=== PATIENT | female | born 1960 | race Caucasian/White ===

== ENCOUNTER 2020-02-02 12:04 | Outpatient (CLI) | payer OTHER, SELFPAY ==
--- NOTE | ~2020-02-02 | XR_ITS ---
EXAMINATION: XR finger 5th LT min 2V INDICATION: Displaced fracture of the middle phalanx, initial encounter TECHNIQUE: Three views of the fifth finger are obtained. COMPARISON: None available FINDINGS: There is an oblique intra-articular fracture at the volar base of the fifth toe phalanx whi ch involves less than 50% of the articular surface. The fracture fragment is proximally retracted drew roximately 1.5 mm. Soft tissue swelling surrounds the fracture. No additional acute osseous abnormali ty is identified. IMPRESSION: 1. Volar plate avulsion of the fifth middle phalanx involving less than 50% of the articular surface. Reviewed, dictated and finalized at location A.
== END 2020-02-02 12:05 | disposition home or self-care (01) ==
LOC: ANHIMG 12:08
PROVIDERS: PCP Internal Medicine; Visit Provider Internal Medicine
DX: S62.603A Fracture of unspecified phalanx of left middle finger, initial encounter for closed fracture (principal)
CPT/HCPCS: 73140

== ENCOUNTER 2020-03-14 10:52 | Outpatient (CLI) | payer OTHER, SELFPAY ==
--- NOTE | ~2020-03-14 | XR_ITS ---
XR finger 5th LT min 2V DATE: 03/14/2020 11:15 INDICATION: Middle phalanx fracture TECHNIQUE: 3 views COMPARISON: 02/02/2020 left fifth finger FINDINGS: There is an anteriorly displaced small cortical avulsion fracture of the anterior base of t he middle phalanx, without significant change since 02/02/2020. No other fracture or dislocation. IMPRESSION: Anteriorly avulsed small cortical fracture of the anterior base of the middle phalanx Reviewed, dictated and finalized at location A.
== END 2020-03-14 10:53 | disposition home or self-care (01) ==
LOC: ANHIMG 11:00
PROVIDERS: PCP Internal Medicine; Visit Provider Internal Medicine
DX: S62.629A Displaced fracture of middle phalanx of unspecified finger, initial encounter for closed fracture (principal)
CPT/HCPCS: 73140

== ENCOUNTER 2021-08-01 09:17 | Outpatient (CLI) | payer OTHER, SELFPAY ==
[2021-08-01 11:12] LABS: SARS-CoV-2 RNA PCR Negative (Negative)
== END 2021-08-01 09:18 | disposition home or self-care (01) ==
LOC: CHSLAB 09:19
PROVIDERS: PCP Internal Medicine; Visit Provider Internal Medicine
DX: R68.89 Other general symptoms and signs (principal); Z20.822 Contact with and (suspected) exposure to COVID-19
CPT/HCPCS: C9803; U0003; U0005

== ENCOUNTER 2021-12-03 15:21 | Emergency (ER) | payer OTHER, SELFPAY ==
--- NOTE | ~2021-12-03 | CT_ITS ---
EXAMINATION: CT brain wo con INDICATION: Hypertension, headache COMPARISON: None TECHNIQUE: Standard unenhanced head CT. The dose-length product (DLP) was 605.33 mGy-cm. The mA was a djusted according to patient size. Iterative reconstruction technique was employed. FINDINGS: There is no intracranial hemorrhage, acute infarction, or abnormal mass lesion. The ventric les are normal. There is no abnormal mass effect or midline shift. The garrison-white matter differentiat ion is normal. The basal cisterns are patent. The orbits are normal. The paranasal sinuses, mastoids and calvarium are normal. IMPRESSION: 1. No acute intracranial abnormality. Reviewed, dictated and finalized at location A.
[2021-12-03 15:32] VITALS: BP 178/95; PULSE 84; RESP 18; TEMP 36.3; O2SAT 98
--- NOTE | 2021-12-03 16:03 | ECG_ITS ---
Measurements Intervals [place] Rate: 75 P: 1 RI: 171 QRS: 7 QRSD: 98 T: 18 QT: 367 QTc: 412 Interpretive Statements SINUS RHYTHM BASELINE WANDER- V5 NORMAL ECG Electronically Signed On 12-04-2021 6:58:28 CDT by Wojciech Cristobal D.O.
--- NOTE | 2021-12-03 16:06 | ED.HA ---
HPI - Headache General Chief Complaint: Headache Stated Complaint: headache Time Seen by Provider: 12/03/21 15:54 Source: patient History of Present Illness HPI Narrative: Patient presents with a headache and not feeling well. Patient lauren has had symptoms for approximately 1 month that do not appear to be improving. She went to an aid station at work they checked her blood pressure it was elevated she called her primary care doctor and she was referred to the ER for evaluation. Patient also reports intermittent paresthesias to her left hand reports they increased her carbidopa levodopa couple months ago but has been tolerating the increased dose there have been no additional changes to her medications recently. she reports sinus congestion as well as not feeling like herself. Denies any nausea vomiting denies any chest pain or shortness of breath denies any fevers cough. Related Data Home Medications Medication Instructions Recorded Confirmed aspirin 81 mg tablet,delayed 81 mg PO DAILY 08/23/19 07/17/21 release cholecalciferol (vitamin D3) 50 1,000 unit PO DAILY tablet 08/23/19 07/17/21 mcg (2,000 unit) tablet trazodone 100 mg tablet 100 mg PO BID 08/23/19 07/17/21 carbidopa ER 50 mg-levodopa 200 mg 1 tablet PO ONCE tablet 09/23/19 07/17/21 tablet,extended release carbidopa 25 mg-levodopa 100 mg 2.5 tablet PO .Every 3 Hours 09/02/21 tablet tablet Allergies Allergy/AdvReac Type Severity Reaction Status Date / Time adhesive Allergy Mild RASH Verified 09/02/21 09:25 Review of Systems Review of Systems: CONSTITUTIONAL: Denies fever, chills, or sweats. EYES: Denies visual changes, redness, or discharge. ENT: Denies rhinorrhea, sore throat, or otalgia. CARDIOVASCULAR: Denies chest pain, palpitations, or edema. RESPIRATORY: Denies cough or dyspnea. GASTROINTESTINAL: Denies abdominal pain, nausea, vomiting, or diarrhea. GENITOURINARY: Denies dysuria or hematuria. SKIN: Denies rash or itching. MUSCULOSKELETAL: Denies back pain, joint pain, or myalgia. NEUROLOGIC: Denies dizziness, or focal weakness. PSYCHIATRIC: Denies anxiety or depression. All systems reviewed & are unremarkable except as noted in HPI and below PMFSH Family History Family History Mother Patient's mother is in good health Father Family history of congestive heart failure Other Family history of heart disease in male family member before age 55 Hypertension Social History Social History Smoking status: Never smoker Second hand tobacco smoke exposure: No Alcohol intake: never Exam Narrative: GENERAL: Well-appearing, well-nourished, and in no acute distress. HEAD: Normocephalic, atraumatic. EYES: PERRLA and EOMI. ENT: Nares clear, no rhinorrhea or epistaxis. Mucous membranes moist. NECK: Supple. No masses. No JVD CHEST: Clear to auscultation. No respiratory distress. No wheezes rales or rhonchi HEART: Regular rate and rhythm. No murmur heard. Normal peripheral pulses. ABDOMEN: Soft, nontender, nondistended, normal active bowel sounds. EXTREMITIES: Normal range of motion. No edema. SKIN: Warm, dry, no rash. NEURO: Cranial nerves II through XII are intact patient has 5 of 5 strength in all extremities sensation intact to light touch in all extremities alert and oriented x3. PSYCH: Normal mood and affect. Course Reevaluation(s) Reevaluation #1: Patient reports feeling much improved results and plan reviewed with patient. Patient is comfortable outpatient plan. Date: 12/03/21 Time: 17:16 Vital Signs Vital signs: Vital Signs Temperature 36.3 C L 12/03/21 15:32 Pulse Rate 84 12/03/21 15:32 Respiratory Rate 18 12/03/21 15:32 Blood Pressure 178/95 H 12/03/21 15:32 Pulse Oximetry 98 12/03/21 15:32 Temperature 36.3 C L 12/03/21 15:32 Pulse Rate 70 12/03/21 17:34 Respiratory Rate 16 12/03/21
[2021-12-03 16:13] VITALS: BP 148/91; PULSE 79; RESP 18; O2SAT 100
[2021-12-03] MEDS: SODIUM CHLORIDE 0.9% IV 1,000 ML 999 ML IV CONT (16:21)
[2021-12-03 16:22] LABS: Appearance Urine Clear (Clear); Basophils Percent Auto 0.5 % (0.2-1.2); Bilirubin Urine Negative (Negative); Blood Urine Negative (Negative); Eosinophils Absolute Auto 0.3 K/mm3 (0-0.3); Eosinophils Percent Auto 3.5 % (0-4.4); Glucose Urine UA Negative (Negative); Hematocrit 41.8 % (37.0-47.0); Hemoglobin 13.4 g/dL (12.0-15.0); Immature Granulocyte Absolute 0.02 K/mm3 (0.00-0.031); Immature Granulocyte Percent A 0.3 % (0-0.5); Ketones Urine Negative (Negative); Leukocyte Esterase Ur Negative LEU/UL (Negative); Lymphocytes Absolute Auto 1.97 K/mm3 (0.9-3.2); Lymphocytes Percent Auto 26.7 % (18.3-44.2); Mean Corpuscular HGB Conc 32.1 g/dl (32-36); Mean Corpuscular Hemoglobin 29.2 pg (26-34); Mean Corpuscular Volume 91.1 fl (80-100); Mean Platelet Volume 9.3 fl (7.4-10.4); Monocytes Absolute Auto 0.8 K/mm3 (0.1-0.6); Monocytes Percent Auto 10.3 % (2.6-8.5); Neutrophils Absolute Auto 4.3 K/mm3 (1.3-6.7); Neutrophils Percent Auto 58.7 % (45.5-73.1); Nitrate Urine Negative (Negative); Platelet Count Result 395 k/mm3 (150-375); Protein Urine Negative (Negative); Red Blood Count 4.59 M/mm3 (4.2-5.4); Red Cell Distribution Width 13.4 % (11.5-14.5); Urobilinogen Urine 0.2 mg/dL (<2.0); White Blood Count 7.4 K/mm3 (4.5-10.0)
[2021-12-03 16:29] LABS: Add Urine Microscopic? NO; Color Urine Light Yellow (Yellow)
[2021-12-03 16:33] LABS: Albumin Level 4.4 g/dL (3.5-5.1); Alkaline Phosphatase 99 U/L (38-126); Anion Gap 6 mmol/L (8-16); Aspartate Amino Transferase 27 U/L (14-36); Bilirubin,Total 0.5 mg/dL (0.2-1.3); Blood Urea Nitrogen 14 mg/dL (7-17); Calcium 9.2 mg/dL (8.4-10.2); Carbon Dioxide 31 mmol/L (22-30); Chloride 101 mmol/L (98-107); Estimated CRCL calculation 86 ml/min; Estimated Glomerular Filt Rate > 60; Glucose 94 mg/dL (65-110); Potassium 3.4 mmol/L (3.4-5.0); Sodium 138 mmol/L (137-145)
[2021-12-03 17:15] LABS: Alanine Aminotransferase < 6 U/L (4-35)
[2021-12-03 17:34] VITALS: BP 140/75; PULSE 70; RESP 16; O2SAT 100
== END 2021-12-03 17:32 | disposition home or self-care (01) ==
PROVIDERS: Emergency Provider Emergency Medicine; PCP Internal Medicine
DX: R51.9 Headache, unspecified (principal); I10 Essential (primary) hypertension
CPT/HCPCS: 36415; 70450; 80053; 81003; 85025; 93005; 96365; 99284; J0131; J7030

== ENCOUNTER → 2022-11-04 11:56 | Outpatient (CLI) | payer OTHER, SELFPAY ==
--- NOTE | ~2022-11-04 | XR_ITS ---
EXAM: XR wrist LT min 3V DATE: 11/04/2022 12:34 HISTORY: M25.532 - Pain in left wrist . COMPARISON: 06/02/2014. FINDINGS: Normal mineralization. No fracture or dislocation. No lytic or blastic lesion. Mild osteoa rthritic changes in the triscaphe joint, trapeziometacarpal joint, first CMC joint, and thumb interph alangeal joint. Ulnar negative variance. No erosion or periosteal change. Soft tissue swelling about the wrist. 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 Reviewed, dictated and finalized at location K.
== END ==
PROVIDERS: PCP Family Medicine; Visit Provider Family Medicine
DX: M19.032 Primary osteoarthritis, left wrist (principal); M25.532 Pain in left wrist
CPT/HCPCS: 73110

== ENCOUNTER 2023-01-29 10:16 | Outpatient (CLI) | payer OTHER, SELFPAY ==
[2023-01-29 20:05] LABS: Kit Draw Collected
== END 2023-01-29 10:17 | disposition home or self-care (01) ==
LOC: ANHGOSHLAB 10:19
PROVIDERS: PCP Family Medicine; Visit Provider Family Medicine
DX: E03.9 Hypothyroidism, unspecified (principal); E78.5 Hyperlipidemia, unspecified; I10 Essential (primary) hypertension; Z79.899 Other long term (current) drug therapy
CPT/HCPCS: 36415

== ENCOUNTER → 2023-03-20 11:46 | Outpatient (CLI) | payer OTHER, SELFPAY ==
--- NOTE | ~2023-03-20 | XR_ITS ---
EXAM: XR knee RT min 4V, XR knee LT min 4V DATE: 03/20/2023 12:46 (accession [id number]), 03/20/2023 12:38 (accession [id number]) HISTORY: Pain in right knee . COMPARISON: None available. FINDINGS: Normal mineralization. No fracture or dislocation. No lytic or blastic lesion. Moderate bi lateral medial joint space narrowing. Moderate tricompartmental osteophytosis. No erosion or perioste al change. Heterotopic ossification in the anterior right thigh soft tissue. IMPRESSION: Moderate tricompartmental bilateral knee osteoarthritis. Reviewed, dictated and finalized at location K. IMPRESSION: Moderate tricompartmental bilateral knee osteoarthritis.
== END ==
PROVIDERS: PCP Family Medicine; Visit Provider Family Medicine
DX: M17.0 Bilateral primary osteoarthritis of knee (principal)
CPT/HCPCS: 73564

== ENCOUNTER 2023-05-07 08:07 | Outpatient (CLI) | payer OTHER, SELFPAY | END 2023-05-07 08:08 | disposition home or self-care (01) | LOC: ANHGOSHLAB 08:10 | PROVIDERS: PCP Family Medicine; Visit Provider Nurse Practitioner | DX: E03.9 Hypothyroidism, unspecified (principal) | CPT/HCPCS: 36415; 84443 ==

== ENCOUNTER 2023-08-04 10:28 | Emergency (ER) | payer OTHER, SELFPAY ==
[2023-08-04 10:39] VITALS: BP 134/91; PULSE 86; RESP 18; TEMP 36.6; O2SAT 100
--- NOTE | 2023-08-04 10:48 | ED.URI ---
HPI - URI/Sore Throat General Chief Complaint: Upper Respiratory Infection Stated Complaint: Cough Time Seen by Provider: 08/04/23 10:59 Source: patient and RN notes reviewed Mode of arrival: ambulatory Limitations: no limitations History of Present Illness HPI Narrative: 62-year-old female with history of Parkinson's disease presents with concern for 3 day history of sinus congestion, postnasal drainage, cough, sore throat. She reports she has been taking Mucinex multi symptom medication with some relief. MD elicited complaint: cough Related Data Home Medications Medication Instructions Recorded Confirmed aspirin 81 mg tablet,delayed 81 mg PO DAILY 08/23/19 08/04/23 release (Adult Aspirin Regimen) cholecalciferol (vitamin D3) 50 1,000 unit PO DAILY 08/23/19 08/04/23 mcg (2,000 unit) tablet trazodone 100 mg tablet 100 mg PO BID 08/23/19 08/04/23 carbidopa ER 50 mg-levodopa 200 mg 1 tablet PO ONCE 09/23/19 08/04/23 tablet,extended release carbidopa 25 mg-levodopa 100 mg 2.5 tablet PO .Every 3 Hours 09/02/21 08/04/23 tablet baclofen 5 mg tablet 5 mg PO DAILY 02/05/22 08/04/23 eclroxykhphx-fazjfhbb-wixicdh-folic 1 tablet PO DAILY 03/20/23 08/04/23 acid 400 mcg-vit K1 20 mcg tablet (One-A-Day Women's 50 Plus) Allergies Allergy/AdvReac Type Severity Reaction Status Date / Time adhesive Allergy Mild RASH Verified 08/04/23 10:48 Review of Systems Review of Systems: CONSTITUTIONAL: Reports malaise. Denies fever. EYES: Denies visual changes, redness, or discharge. ENT: Reports rhinorrhea, congestion, sore throat. CARDIOVASCULAR: Denies chest pain, palpitations, or edema. RESPIRATORY: Reports cough. Denies dyspnea. GASTROINTESTINAL: Denies abdominal pain, nausea, vomiting, diarrhea SKIN: Denies rash or itching. MUSCULOSKELETAL: Reports myalgia. NEUROLOGIC: Reports headache. 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 Parkinsons Psychophysiological insomnia Surgical History Surgical History H/O arthroscopic knee surgery H/O hemorrhoidectomy H/O left breast biopsy H/O nasal septoplasty H/O tubal ligation History of left hip replacement History of lumbar laminectomy History of partial hysterectomy History of right hip replacement Family History Family History Mother Patient's mother is in good health Father Family history of congestive heart failure Other Family history of heart disease in male family member before age 55 Hypertension Social History Social History Smoking status: Never smoker Second hand tobacco smoke exposure: No Alcohol intake: never Lack of Transportation: No Lack of Food: Never True Current Housing: I Have Housing Concerned About Future Housing: No Difficulty Paying Gas/Electric Bills: No Difficulty Paying for Meds: No Currently Unemployed: No Education: High School Diploma/GED Difficulty w/ Childcare or Family Care: No Comments At time of signature, agree with nursing past medical, surgical, social and family history. There is no relevant family history pertinent to the presenting complaint Exam Narrative: GENERAL: Nontoxic-appearing, well-nourished, and in no acute distress. HEAD: Normocephalic EYES: PERRLA, conjunctivae clear ENT: Nares clear, turbinates edematous and erythematous, clear discharge. Mucous membran
== END 2023-08-04 11:24 | disposition home or self-care (01) ==
PROVIDERS: Emergency Provider Nurse Practitioner; PCP Family Medicine
DX: U07.1 COVID-19 (principal); G20.A1 Parkinson's disease without dyskinesia, without mention of fluctuations; E78.5 Hyperlipidemia, unspecified; I10 Essential (primary) hypertension; E03.9 Hypothyroidism, unspecified; Z85.3 Personal history of malignant neoplasm of breast
CPT/HCPCS: 87081; 87426; 87804; 87880; 99213; C9803; G0463

== ENCOUNTER 2023-10-04 11:08 | Emergency (ER) | payer OTHER, SELFPAY ==
[2023-10-04 11:19] VITALS: BP 143/104; PULSE 83; RESP 16; TEMP 36.5; O2SAT 100
--- NOTE | 2023-10-04 12:07 | ED.EAR ---
HPI - Ear Problem General Chief complaint: Ear Stated complaint: Ear pain Time Seen by Provider: 10/04/23 12:08 Source: patient and RN notes reviewed Mode of arrival: ambulatory Limitations: no limitations History of Present Illness HPI Narrative: Patient presents today complaining of left ear pressure since yesterday. She has had some cold symptoms for a week to include cough and postnasal drainage. She does report some ear muffling but no ear drainage. No hary-htf-iizrumo treatment prior to arrival. Related Data Home Medications Medication Instructions Recorded Confirmed aspirin 81 mg tablet,delayed 81 mg PO DAILY 08/23/19 10/04/23 release (Adult Aspirin Regimen) cholecalciferol (vitamin D3) 50 1,000 unit PO DAILY 08/23/19 10/04/23 mcg (2,000 unit) tablet trazodone 100 mg tablet 100 mg PO BID 08/23/19 10/04/23 carbidopa ER 50 mg-levodopa 200 mg 1 tablet PO ONCE 09/23/19 10/04/23 tablet,extended release carbidopa 25 mg-levodopa 100 mg 2.5 tablet PO .Every 3 Hours 09/02/21 10/04/23 tablet evdphfxmujae-evjkfkdb-wipywat-folic 1 tablet PO DAILY 03/20/23 10/04/23 acid 400 mcg-vit K1 20 mcg tablet (One-A-Day Women's 50 Plus) Allergies Allergy/AdvReac Type Severity Reaction Status Date / Time adhesive Allergy Mild RASH Verified 10/04/23 11:51 Review of Systems Review of Systems: CONSTITUTIONAL: Denies body aches, fever, chills, or sweats. EYES: Denies visual changes, redness, or discharge. ENT: Denies rhinorrhea, congestion, sore throat, or otalgia.+ left ear pressure a muffling, postnasal drip CARDIOVASCULAR: Denies chest pain, palpitations, or edema. RESPIRATORY: Denies dyspnea.+ cough GASTROINTESTINAL: Denies abdominal pain, nausea, vomiting, or diarrhea. GENITOURINARY: Denies dysuria or hematuria. SKIN: Denies rash, itching, or wounds. MUSCULOSKELETAL: Denies back pain, joint pain, or myalgia. NEUROLOGIC: Denies headache, numbness, tingling, or weakness. PSYCH: Denies depression or anxiety. [facility] Past Medical History Medical History Acquired hypothyroidism Body mass index (bmi) 34.0-34.9, adult (03/10/18) Breast CA Cervical dystonia De Quervain's disease (radial styloid tenosynovitis) Dysthymia Essential hypertension Hallux rigidus, right foot Hyperlipidemia LDL goal <130 Intertrigo Lateral epicondylitis, right elbow [facility] use of drug Parkinsons Psychophysiological insomnia Surgical History Surgical History H/O arthroscopic knee surgery H/O hemorrhoidectomy H/O left breast biopsy H/O nasal septoplasty H/O tubal ligation History of left hip replacement History of lumbar laminectomy History of partial hysterectomy History of right hip replacement Family History Family History Mother Patient's mother is in good health Father Family history of congestive heart failure Other Family history of heart disease in male family member before age 55 Hypertension Social History Social History Smoking status: Never smoker Second hand tobacco smoke exposure: No Alcohol intake: never Lack of Transportation: No Lack of Food: Never True Current Housing: I Have Housing Concerned About Future Housing: No Difficulty Paying Gas/Electric Bills: No Difficulty Paying for Meds: No Currently Unemployed: No Education: High School Diploma/GED Difficulty w/ Childcare or Family Care: No Comments At time of signature, I have reviewed and agree with nursing past medical, surgical, social and family history unless otherwise noted. Please see nursing chart for further information. There is no relevant family history pertinent to the presenting complaint Exam Narrative: GENERAL: Well-appearing, well-nourished, and in no acu
== END 2023-10-04 12:15 | disposition home or self-care (01) ==
PROVIDERS: Emergency Provider Nurse Practitioner; PCP Family Medicine
DX: H66.002 Acute suppurative otitis media without spontaneous rupture of ear drum, left ear (principal); E03.9 Hypothyroidism, unspecified; E78.5 Hyperlipidemia, unspecified; I10 Essential (primary) hypertension; Z85.3 Personal history of malignant neoplasm of breast; Z79.899 Other long term (current) drug therapy; Z79.82 Long term (current) use of aspirin
CPT/HCPCS: 99213; G0463

== ENCOUNTER 2024-02-03 09:18 | Outpatient (CLI) | payer OTHER, SELFPAY ==
[2024-02-03 19:50] LABS: Alanine Aminotransferase 7 U/L (6-35); Albumin Level 4.5 g/dL (3.5-5.1); Alkaline Phosphatase 95 U/L (38-126); Anion Gap 7 mmol/L (4-12); Aspartate Amino Transferase 46 U/L (14-36); Blood Urea Nitrogen 14 mg/dL (7-17); Calcium 9.6 mg/dL (8.4-10.2); Carbon Dioxide 30 mmol/L (22-30); Chloride 104 mmol/L (98-107); Cholesterol 158 mg/dL (0-200); Estimated Glomerular Filt Rate > 60; Glucose 98 mg/dL (65-110); HDL Direct 58 mg/dL; Potassium 4.2 mmol/L (3.4-5.0); Sodium 141 mmol/L (137-145); Triglycerides 72 mg/dL (<150)
[2024-02-03 19:53] LABS: Free T4 Free Thyroxine 1.34 ng/mL (0.78-2.19)
[2024-02-03 20:05] LABS: LDL Cholesterol Direct 82 mg/dL
[2024-02-03 20:26] LABS: Thyroid Stimulating Hormone 0.925 uIU/mL (0.465-4.680)
[2024-02-07 12:13] LABS: Vitamin D 1,25 (OH)2 Total 50 pg/mL (18-72); Vitamin D2 1,25 (OH)2 <8 pg/mL; Vitamin D3 1,25 (OH)2 50 pg/mL
== END 2024-02-03 09:19 | disposition home or self-care (01) ==
LOC: ANHGOSHLAB 09:20
PROVIDERS: PCP Family Medicine; Visit Provider Family Medicine
DX: E78.5 Hyperlipidemia, unspecified (principal); E55.9 Vitamin D deficiency, unspecified; E03.9 Hypothyroidism, unspecified; I10 Essential (primary) hypertension; Z79.899 Other long term (current) drug therapy
CPT/HCPCS: 36415; 80053; 80061; 82652; 84439; 84443

== ENCOUNTER 2024-02-17 12:31 | Outpatient (CLI) | payer OTHER, SELFPAY ==
--- NOTE | 2024-02-17 14:00 | NEURO_ITS ---
Impression: #Non diabetic Complains of numbness of left hand. . Has severe Parkinsonism taking antiparkinsonism medication with resultant dose related motor dyskinesia. # Severe left Carpal Tunnel Syndrome. # Needle/EMG exam neurogenic in left APB. Nerve Conduction Studies Anti Sensory Summary Table Stim Site NR Peak (ms) P-T Amp (?V) Site1 Site2 Delta-P (ms) Dist (cm) Chucho (m/s) Left Median Anti Sensory (2-3nd Digit) NO RESPONSE Wrist 10.5 21.8 Wrist 2-3nd Digit 10.5 14.0 13 Wrist 10.5 8.2 Wrist 2-3nd Digit 10.5 14.0 13 Left Radial Anti Sensory (Base 1st Digit) Wrist 1.9 19.9 Wrist Base 1st Digit 1.9 0.0 Left Ulnar Anti Sensory (5th Digit) Wrist 2.5 49.8 Wrist 5th Digit 2.5 14.0 56 Motor Summary Table Stim Site NR Onset (ms) O-P Amp (mV) Site1 Site2 Delta-0 (ms) Dist (cm) Chucho (m/s) Left Median Motor (Abd Poll Brev) Wrist 7.6 0.6 Elbow Wrist 1.1 30.0 43 Elbow 8.7 1.6 Left Ulnar Motor (Abd Dig Minimi) Wrist 2.7 9.9 A Elbow Wrist 5.9 30.0 51 A Elbow 8.6 9.0 B Elbow Wrist 3.9 22.0 56 B Elbow 6.6 7.9 F Wave Studies NR F-Lat (ms) L-R F-Lat (ms) Left Median (Mrkrs) (Abd Poll Brev) 30.02 Left Ulnar (Mrkrs) (Abd Dig Min) 27.89 EMG Side Muscle Nerve Root Ins Act Fibs Amp Dur Recrt Comment Left 1stDorInt Ulnar C8-T1 Nml Nml Nml Nml Nml Left Ext Indicis Radial (Post Int) C7-8 Nml Nml Nml Nml Nml Left Ext Digitorum Radial (Post Int) C7-8 Nml Nml Nml Nml Nml Left BrachioRad Radial C5-6 Nml Nml Nml Nml Nml Left PronatorTeres Median C6-7 Nml Nml Nml Nml Nml Left Abd Poll Brev Median C8-T1 Nml Nml Nml >12ms +2 Left ABD Dig Min Ulnar C8-T1 Nml Nml Nml Nml Nml MTDD
== END 2024-02-17 12:32 | disposition home or self-care (01) ==
LOC: ANHNEURO 12:31
PROVIDERS: PCP Family Medicine; Visit Provider Family Medicine
DX: G20.A1 Parkinson's disease without dyskinesia, without mention of fluctuations (principal); G56.02 Carpal tunnel syndrome, left upper limb
CPT/HCPCS: 95886; 95909

== ENCOUNTER 2024-05-11 01:24 | Day surgery (SDC) | payer OTHER, SELFPAY ==
[2024-05-02 10:32] VITALS: BMI 26.3
--- NOTE | 2024-05-02 10:43 | SUR.PREOP ---
Report to the Outpatient Waiting Room, entrance under the green pavilion located off [facility], at time 1145 on date 05/11/24. Planned Procedure Time: 1345.? Time changes happen often and if your time is changed the preop area will call you the afternoon before. - You and your visitor will be asked to self-screen and do not enter if you have any COVID symptoms. Please call surgeon if you need to reschedule. - A mask is optional within the hospital at this time. Patients may have clear liquids (water, carbonated beverages, clear teas, apple juice) until 8 hours prior to surgery with a maximum of 20 ounces. - No food from midnight until time of surgery and no smoking - Infants may have breast milk until 4 hours before surgery, formula 6 hours prior to surgery. - Children will be allowed to drink immediately following surgery.? If applicable, please bring a bottle or sippy cup to assist with drinking. Juice, water, soda, and popsicles are readily available.? For infants on formula, please bring formula the day of surgery.? Pacifiers are allowed. Take only the following medications with a SIP of water on the morning of surgery: levothyroxine, carbida-levodopa DO NOT STOP ANY OF YOUR OTHER PRESCRIPTION MEDICATIONS PRIOR TO SURGERY EXCEPT THE FOLLOWING Medications to discontinue per physician:pt to call surgeon office to clarify meloxicam and aspirin stop dates, hold vitamins and supplements for 3 days prior to surgery date, hold lisinopril and pravastatin morning of surgery Date to take last dose Please no make-up, nail tuvaluan, hairspray, perfume, deodorant, or body powder the day of surgery.? No jewelry (including any body piercings) or valuables the day of surgery, leave them at home.? Please take a shower or bath the night before, or the morning of, surgery with an antibacterial soap.? Wear comfortable, loose fitting clothing.? Children are encouraged to wear pajamas. - Jewelry must be removed prior to entering the operating room.? Rings and piercings that are not removed may be cut off. - The hospital will not accept responsibility for valuables.? - Please leave all valuables, including medications, at home the day of surgery. If you are going home after surgery, a licensed yard driver must drive you home.? - NO public transportation without another adult if you receive anesthesia. - We recommend that an adult stay with you for 24 hours following discharge. - We also recommend that you do not drive, make important decision, drink alcoholic beverages, or take any drugs that were not prescribed by your health care provider for at least 24 hours after your discharge time. For Pediatric surgeries, we recommend two adults accompany the child home. Follow any additional instructions given to you from your surgeon. Telephone instructions given to _patient_and asked if any additional questions and then verbalized understanding. Patient advised to call surgeon office or pre surgery nurse liaison [phone] if any additional questions.
[2024-05-11] MEDS: LACTATED RINGERS 1,000 ML 30 ML IV CONT (06:20)
[2024-05-11 06:30] VITALS: BP 128/72; PULSE 83; RESP 14; TEMP 36.1; O2SAT 100; BMI 25.7
--- NOTE | 2024-05-11 06:54 | PM.HPGS ---
History of Present Illness History of Present Illness Chief complaint: left carpal tunnel, lesion ulnar nerve Narrative: Patient seen and examined in pre-operative holding area. No interval change in medical history or symptoms. Patient recalls previous discussion of benefits and alternatives to procedure. Continues to desire to proceed with left endoscopic possible open carpal tunnel release and left cubital tunnel release. Reviewed procedure, post-op expectations and risks including but not limited to bleeding, infection, injury to tendon/nerve/vessel, decreased hand function, stiffness, RSD, no change or worsening of symptoms. I discussed the possible use of assistants and their participation in the case. Patient stated understanding and signed the consent form wishing to proceed. 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 Parkinsons Psychophysiological insomnia Surgical History Surgical History H/O arthroscopic knee surgery H/O hemorrhoidectomy H/O left breast biopsy H/O nasal septoplasty H/O tubal ligation History of left hip replacement History of lumbar laminectomy History of partial hysterectomy History of right hip replacement Family History Family History Mother Patient's mother is in good health Father Family history of congestive heart failure Other Family history of heart disease in male family member before age 55 Hypertension Social History Social History Smoking status: Never smoker Second hand tobacco smoke exposure: No Alcohol intake: never Lack of Transportation: No Lack of Food: Never True Current Housing: I Have Housing Concerned About Future Housing: No Difficulty Paying Gas/Electric Bills: No Difficulty Paying for Meds: No Currently Unemployed: No Education: High School Diploma/GED Difficulty w/ Childcare or Family Care: No Living arrangements: with family Meds Home Medications and Allergies Home Medications Medication Instructions Recorded Confirmed Type aspirin 81 mg tablet,delayed 81 mg PO DAILY 08/23/19 05/02/24 History release (Adult Aspirin Regimen) cholecalciferol (vitamin D3) 50 1,000 unit PO DAILY 08/23/19 05/02/24 History mcg (2,000 unit) tablet trazodone 100 mg tablet 100 mg PO HS 08/23/19 05/02/24 History carbidopa ER 50 mg-levodopa 200 mg 1 tablet PO ONCE 09/23/19 05/02/24 History tablet,extended release carbidopa 25 mg-levodopa 100 mg 2.5 tablet PO .Every 3 Hours 09/02/21 05/11/24 History tablet ipigxtgzhtfe-ehqyhgpv-usalwjd-folic 1 tablet PO DAILY 03/20/23 05/02/24 History acid 400 mcg-vit K1 20 mcg tablet (One-A-Day Women's 50 Plus) lisinopril 40 mg tablet 40 mg PO DAILY #90 tabs 01/21/24 05/02/24 Rx levothyroxine 100 mcg tablet 100 mcg PO .QOD #45 tabs 02/09/24 05/02/24 Rx pravastatin 40 mg tablet 40 mg PO DAILY #90 tabs 02/29/24 05/02/24 Rx gabapentin 300 mg capsule 300 mg PO HS 05/02/24 05/02/24 History meloxicam 15 mg tablet 15 mg PO DAILY 05/02/24 05/02/24 History levothyroxine 88 mcg tablet See Rx Instructions .Route 05/09/24 05/11/24 Rx .COMPLEX #90 tabs Allergies Allergy/AdvReac Type Severity Reaction Status Date / Time adhesive Allergy Mild RASH Verified 02/29/24 15:28 Exam Narrative: unchanged Assessment and Plan Assessment and plan (1) Cubital tunnel s
--- NOTE | 2024-05-11 06:54 | W.PM.PROC2 ---
Procedure Note - Detailed Date of Procedure 05/11/24 Pre-op Diagnosis left carpal and cubital tunnel syndrome Post-op Diagnosis Same Procedure Performed left ectr and CuTR Surgeon Shanda Edwards MD Thermoforming Machine Operator soni hughes pa-c Anesthesia MAC Description of Procedure INFORMED CONSENT: The patient was seen and examined and marked in the pre-op area.? The patient signed the consent form. PROCEDURE IN DETAIL:The patient taken back to OR on the stretcher in supine position. Time out performed with anesthesia, surgeon and staff agreeing on patient's name site and surgery to be performed SCDs were placed on the lower extremities and inflated. A tourniquet was placed on left} upper extremity and antibiotics given IV After anesthesia administered sedation I injected 10cc 1%lido with epi and 0.5% marcaine plain at the operative sites The?{left upper extremity}?was prepped and draped in sterile fashion the??{left upper extremity} was? exsanguinated with Esmarch bandage and tourniquet inflated to 250mmHg I made a transverse incision in the {left} volar distal wrist crease through skin and dermis with 15 blade scalpel.? Littler scissors spread down to antebrachial fascia. A small incision was made in antebrachial fascia allowing access to Carpal tunnel. I proceeded with sequential dilation staying in line with the ring finger and hugging the hook of the hamate.? I then used the synovial elevator to free any adhesions from the underside of the transverse carpal ligament. Next I was able to insert the Microaire endoscopic carpal tunnel device with direct visualization of the transverse fibers on the monitor and proceeded with complete segmental retrograde release of the ligament in its entirety.? I irrigated with normal saline and closed with 4-0 monocryl for dermis and subcuticular closure. I next proceeded with making a longitudinal incision between two heads for flexor carpi ulnaris at end of {left} cubital tunnel with 15 blade scalpel.? Littler scissors were used to spread down to FCU fascia.? An incision was made in FCU fascia and ulnar nerve identified exiting cubital tunnel.? I proceeded with complete retrograde release of the cubital tunnel including 7cm proximal for the intermuscular septum.? The nerve appeared healthy with visible vaso nervorum.? There was no subluxation on full elbow range of motion. ? I irrigated with normal saline and closure with 4-0 monocryl for dermis and subcuticular. The incisions were covered with Dermabond then 4x4s, jose martin, and a posterior elbow and volar wrist splint for patient safety, security and comfort and secured with sherrill bandages after the tourniquet was let down noting the hand was warm and well perfused.? Patient awaken from anesthesia and transferred to recovery in stable condition Complications - none EBL- 1cc Disposition - home in stable conditions Soni Hughes pa-c was essential for positioning, retraction, closure and dressing placement [facility] Billing Surgery - Charge Forward: Surgery Billing ([id number] same for soni paulson )
--- NOTE | 2024-05-11 07:30 | WPDANESEPPF ---
Anes - Initial Pre Proc Eval Procedure: Operation Date: 05/11/24 08:15 Proposed Procedures p Left Endoscopic Carpal Tunnel Release, Possible Open, Left Cubital Tunnel Release - Shanda Edwards MD Date/Time: 05/11/24 07:30 Surgeon: Shanda Edwards MD Pre Op Diagnosis: left carpal tunnel, lesion ulnar nerve Patient Data Age: 63 Gender: F Height: 1.7 m Weight: 74.35 kg Last Vital Signs Temp 36.1 C L 05/11/24 06:30 Pulse 83 05/11/24 06:30 Resp 14 05/11/24 06:30 BP 128/72 05/11/24 06:30 Pulse Ox 100 05/11/24 06:30 O2 Del Method Room Air 05/11/24 06:30 Allergies Allergy/AdvReac Type Severity Reaction Status Date / Time adhesive Allergy Mild RASH Verified 02/29/24 15:28 Home Medications Medication Instructions Recorded Confirmed Type aspirin 81 mg tablet,delayed 81 mg PO DAILY 08/23/19 05/02/24 History release (Adult Aspirin Regimen) cholecalciferol (vitamin D3) 50 1,000 unit PO DAILY 08/23/19 05/02/24 History mcg (2,000 unit) tablet trazodone 100 mg tablet 100 mg PO HS 08/23/19 05/02/24 History carbidopa ER 50 mg-levodopa 200 mg 1 tablet PO ONCE 09/23/19 05/02/24 History tablet,extended release carbidopa 25 mg-levodopa 100 mg 2.5 tablet PO .Every 3 Hours 09/02/21 05/11/24 History tablet cxrvnfpniaap-hmcrutbx-upkzeyq-folic 1 tablet PO DAILY 03/20/23 05/02/24 History acid 400 mcg-vit K1 20 mcg tablet (One-A-Day Women's 50 Plus) lisinopril 40 mg tablet 40 mg PO DAILY #90 tabs 01/21/24 05/02/24 Rx levothyroxine 100 mcg tablet 100 mcg PO .QOD #45 tabs 02/09/24 05/02/24 Rx pravastatin 40 mg tablet 40 mg PO DAILY #90 tabs 02/29/24 05/02/24 Rx gabapentin 300 mg capsule 300 mg PO HS 05/02/24 05/02/24 History meloxicam 15 mg tablet 15 mg PO DAILY 05/02/24 05/02/24 History levothyroxine 88 mcg tablet See Rx Instructions .Route 05/09/24 05/11/24 Rx .COMPLEX #90 tabs Results Review: All pre-operative results and documents have been reviewed as part of the pre-operative evaluation. 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 Parkinsons Psychophysiological insomnia Surgical History Surgical History H/O arthroscopic knee surgery H/O hemorrhoidectomy H/O left breast biopsy H/O nasal septoplasty H/O tubal ligation History of left hip replacement History of lumbar laminectomy History of partial hysterectomy History of right hip replacement Family History Family History Mother Patient's mother is in good health Father Family history of congestive heart failure Other Family history of heart disease in male family member before age 55 Hypertension Social History Social History Smoking status: Never smoker Second hand tobacco smoke exposure: No Alcohol intake: never Lack of Transportation: No Lack of Food: Never True Current Housing: I Have Housing Concerned About Future Housing: No Difficulty Paying Gas/Electric Bills: No Difficulty Paying for Meds: No Currently Unemployed: No Education: High School Diploma/GED Difficulty w/ Childcare or Family Care: No Living arrangements: with family Anes - Evmaurice Final PreProcedure Day of Procedure 05/11/24 07:30 Patient weight: normal Heart: regular rate and rhythm Lungs: clear to auscultation Airway: Mallampati scale class II Neurological: alert and oriented Results Review: All pre-operative results and documents have been reviewed as part of the
--- NOTE | 2024-05-11 07:36 | WPDANESEPPF ---
Anes - Initial Pre Proc Eval Procedure: Operation Date: 05/11/24 08:15 Proposed Procedures p Left Endoscopic Carpal Tunnel Release, Possible Open, Left Cubital Tunnel Release - Shanda Edwards MD Date/Time: 05/11/24 07:36 Surgeon: Shanda Edwards MD Pre Op Diagnosis: left carpal tunnel, lesion ulnar nerve Patient Data Age: 63 Gender: F Height: 1.7 m Weight: 74.35 kg Last Vital Signs Temp 36.1 C L 05/11/24 06:30 Pulse 83 05/11/24 06:30 Resp 14 05/11/24 06:30 BP 128/72 05/11/24 06:30 Pulse Ox 100 05/11/24 06:30 O2 Del Method Room Air 05/11/24 06:30 Allergies Allergy/AdvReac Type Severity Reaction Status Date / Time adhesive Allergy Mild RASH Verified 02/29/24 15:28 Home Medications Medication Instructions Recorded Confirmed Type aspirin 81 mg tablet,delayed 81 mg PO DAILY 08/23/19 05/02/24 History release (Adult Aspirin Regimen) cholecalciferol (vitamin D3) 50 1,000 unit PO DAILY 08/23/19 05/02/24 History mcg (2,000 unit) tablet trazodone 100 mg tablet 100 mg PO HS 08/23/19 05/02/24 History carbidopa ER 50 mg-levodopa 200 mg 1 tablet PO ONCE 09/23/19 05/02/24 History tablet,extended release carbidopa 25 mg-levodopa 100 mg 2.5 tablet PO .Every 3 Hours 09/02/21 05/11/24 History tablet igcgasawlzvd-yadjpyce-jivaxvt-folic 1 tablet PO DAILY 03/20/23 05/02/24 History acid 400 mcg-vit K1 20 mcg tablet (One-A-Day Women's 50 Plus) lisinopril 40 mg tablet 40 mg PO DAILY #90 tabs 01/21/24 05/02/24 Rx levothyroxine 100 mcg tablet 100 mcg PO .QOD #45 tabs 02/09/24 05/02/24 Rx pravastatin 40 mg tablet 40 mg PO DAILY #90 tabs 02/29/24 05/02/24 Rx gabapentin 300 mg capsule 300 mg PO HS 05/02/24 05/02/24 History meloxicam 15 mg tablet 15 mg PO DAILY 05/02/24 05/02/24 History levothyroxine 88 mcg tablet See Rx Instructions .Route 05/09/24 05/11/24 Rx .COMPLEX #90 tabs Patient hx anesthesia problems: none Family hx anesthesia problems: none Results Review: All pre-operative results and documents have been reviewed as part of the pre-operative evaluation. 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 home use of drug Parkinsons Psychophysiological insomnia Surgical History Surgical History H/O arthroscopic knee surgery H/O hemorrhoidectomy H/O left breast biopsy H/O nasal septoplasty H/O tubal ligation History of left hip replacement History of lumbar laminectomy History of partial hysterectomy History of right hip replacement Family History Family History Mother Patient's mother is in good health Father Family history of congestive heart failure Other Family history of heart disease in male family member before age 55 Hypertension Social History Social History Smoking status: Never smoker Second hand tobacco smoke exposure: No Alcohol intake: never Lack of Transportation: No Lack of Food: Never True Current Housing: I Have Housing Concerned About Future Housing: No Difficulty Paying Gas/Electric Bills: No Difficulty Paying for Meds: No Currently Unemployed: No Education: High School Diploma/GED Difficulty w/ Childcare or Family Care: No Living arrangements: with family Anes - Evmaurice Final PreProcedure Day of Procedure 05/11/24 07:36 Patient weight: normal Heart: regular rate and rhythm Lungs: clear to auscultation Airway: Mallampati scale class II Neurological: alert and oriented Last oral intake:
[2024-05-11] MEDS: ceFAZolin 2 GM/D5W 50 ML 2 GM/50 ML BAG IVPB (08:02)
[2024-05-11] MEDS: LIDO 1%/EPINEPHRINE 1:100,000 50 ML VIAL 10 ML INFILTRATE (08:14)
[2024-05-11 08:33] VITALS: BP 107/64; PULSE 75; RESP 14; O2SAT 98
[2024-05-11 09:05] VITALS: BP 110/60; PULSE 70; RESP 16
[2024-05-11 09:25] VITALS: BP 131/68; PULSE 69; RESP 20
== END 2024-05-11 09:35 | disposition home or self-care (01) ==
PROVIDERS: PCP Family Medicine; Visit Provider Plastic Surgery
PROC: 01N54ZZ Release Median Nerve, Percutaneous Endoscopic Approach (ICD-10-PCS; CPT 29848; principal; 2024-05-11 08:15)
DX: G56.02 Carpal tunnel syndrome, left upper limb (principal); G56.22 Lesion of ulnar nerve, left upper limb; E03.9 Hypothyroidism, unspecified; I10 Essential (primary) hypertension; E78.5 Hyperlipidemia, unspecified; G20.A1 Parkinson's disease without dyskinesia, without mention of fluctuations; Z79.82 Long term (current) use of aspirin
CPT/HCPCS: 29848; 64718; J0690; J2004; J2704; J3010; J7120

== ENCOUNTER 2024-07-15 08:15 | Outpatient (CLI) | payer OTHER, SELFPAY ==
--- NOTE | ~2024-07-15 | NM_ITS ---
EXAMINATION: NM delia stress w perfusion DATE: 07/15/2024 10:21 INSPECTOR INDICATION: Preprocedural cardiac examination TECHNIQUE: Rest images were obtained following intravenous administration of 9.6 mCi Tc99m tetrofosmi n (Myoview). The patient was infused intravenously with Lexiscan (regadenoson). Then, 31.7 mCi Tc99m tetrofosmin (Myoview) was administered intravenously, and stress images were obtained. Data was recon structed into short axis and horizontal and vertical long axis SPECT images. Gated SPECT images were also obtained. COMPARISON: None. FINDINGS: There is no definite reversible or fixed perfusion abnormality to suggest ischemia or infar ction. There is no segmental wall motion abnormality. Left ventricular ejection fraction measures 7 2%. IMPRESSION: 1. No definite ischemia or infarct. 2. Normal left ventricular ejection fraction measuring 72%. Reviewed, dictated and finalized at location B. ECTOR
--- NOTE | 2024-07-15 08:27 | ECHO_ITS ---
Patient Info Name: Anastasiya Bertrand Age: 63 years : 1960 Gender: Female Ht: 66 in Wt: 165 lbs BSA: 1.88 m2 HR: 83 bpm BP: 138 / 88 mmHg Heart Rhythm: Sinus Rhythm Technical Quality: Excellent Exam Date: 07/15/2024 10:31 AM Exam Location: Echo Lab Patient Status: Outpatient Admit Date: 07/15/2024 Staff Ordering Physician: Wojciech Cirstobal DO Sterile Supervisor: Jody Pleitez RDCS Attending Provider: Wojciech Cristobal DO Referring Physician: Levar HAQ; Exam Type: CA echo dop color flow w con Study Info Complete two-dimensional, color flow and Doppler transthoracic echocardiogram is performed. Summary 1. Complete two-dimensional, color flow and Doppler transthoracic echocardiogram is performed. 2. Left ventricular chamber dimension is normal. 3. Left ventricular systolic function is normal, estimated at 60-65%. 4. The left ventricular diastolic function is grade I diastolic dysfunction. 5. E/e' 14 is mildly elevated. 6. Left atrial chamber dimension is moderately enlarged. 7. There is severe aortic valve sclerosis. 8. There is mild to moderate aortic valve stenosis with a peak velocity of 260.74 cm/s, mean gradient of 13 mmHg, and aortic valve area of 1.53 cm2. 9. The mitral valve has mildly calcified annulus. 10. There is trace mitral valve regurgitation. 11. No pulmonary hypertension, estimated pulmonary arterial systolic pressure is 37 mmHg. 12. There is trace pulmonic regurgitation. Left Ventricle E/e' 14 is mildly elevated. Left ventricular chamber dimension is normal. Left ventricular systolic function is normal, estimated at 60-65%. The left ventricular diastolic function is grade I diastolic dysfunction. Right Ventricle Right ventricular systolic function is normal and with normal TAPSE 2.5 cm. Right ventricular chamber dimension is normal. Left Atria Left atrial chamber dimension is moderately enlarged. Right Atria Right atrial chamber dimension is normal. Atrial Septum Agitated saline injection with and without valsalva maneuver opacified right side cardiac chambers without shunt to left side cardiac chambers. Intact interatrial septum visualized by 2D and agitated saline imaging. Aortic Valve The aortic valve is trileaflet. There is severe aortic valve sclerosis. There is mild to moderate aortic valve stenosis with a peak velocity of 260.74 cm/s, mean gradient of 13 mmHg, and aortic valve area of 1.53 cm2. There is no aortic valve regurgitation. Pulmonic Valve There is trace pulmonic regurgitation. Mitral Valve The mitral valve has mildly calcified annulus. There is no mitral valve stenosis. There is trace mitral valve regurgitation. Tricuspid Valve There is no tricuspid valve regurgitation. No pulmonary hypertension, estimated pulmonary arterial systolic pressure is 37 mmHg. Pericardium/Pleural There is no pericardial effusion. Inferior Vena Cava Normal inferior vena cava with >50% collapse upon inspiration consistent with normal right atrial pressure, 5 mmHg. Aorta The aortic root size at the sinus of Valsalva is normal. Left Ventricular Outflow Tract Name Value Normal LVOT 2D LVOT Diameter 2.18 cm LVOT Doppler LVOT Peak Gradient 4 mmHg LVOT Mean Gradient 2 mmHg LVOT VTI 24.70 cm LVOT VTI/AV VTI Ratio 0.41 LVOT Stroke Volume 92.10 ml LVOT CO 6.77 l/min LVOT CI 3.60 L/min/m2 Pulmonic Valve Name Value Normal PV Doppler PV Peak Gradient 4 mmHg PV Regurgitation Doppler MT Peak End Diastolic Velocity 114.78 cm/s Mitral Valve Name Value Normal MV Doppler MV Peak Gradient 5 mmHg MV Mean Gradient 2 mmHg MV Decel Mcdowell 366.47 cm/s2 MV PHT 0 s MV Area (PHT) 2.97 cm2 4.00-5.00 MV Area (Cont Eq VTI) 4.12 cm2 MV Diastolic Function MV E Peak Velocity 93.64 cm/s MV A Peak Velocity 97.22 cm/s MV E/A 0.96 MV Decel Time 0 s MV Annular TDI MV E/e' (Septal) 16.77 <=8.00 MV E/e' (Lateral) 13.35 <=8.00 MV E/e' (Average) 15.06 Tricuspid Valve Name Value Normal TV Regurgitation Doppler TR Peak Velocity 281.28 cm/s TR Peak Gradient 32 mmHg Estimated PAP/RSVP RA Pressure 5 mmHg <=5 PA Systolic Pressure 37 mmHg <36 RV Systolic Pressure 37 mmHg <36 Aortic Valve Name Value Normal AV Doppler AV Peak Velocity 260.74 cm/s AV Peak Gradient 24 mmHg AV Mean Gradient 13 mmHg AV VTI 60.34 cm AV Area (Cont Eq VTI) 1.53 cm2 >=3.00 AV Area (Cont Eq Chucho) 1.40 cm2 AV Regurgitation 2D LVOT Area 3.73 cm2 Ventricles Name Value Normal LV Dimensions 2D/MM IVS Diastolic Thickness (2D) 0.97 cm 0.60-1.00 LVID Diastole (2D) 4.25 cm 3.80-5.20 LVIW Diastolic Thickness (2D) 0.85 cm 0.60-0.90 LVID Systole (2D) 3.04 cm 2.20-3.50 LVOT Diameter 2.18 cm LV Mass (2D Cubed) 123.70 g 67.00-162.00 LV Mass Index (2D Cubed) 0.01 g/cm2 0.00-0.01 Relative Wall Thickness (2D) 0.40 LV Fractional Shortening/Ejection Fraction 2D/MM LV Fractional Shortening (2D) 28 % 27-45 LV EF (2D Teichdarianz) 55 % 54-74 LV Diastolic Volume (4C MOD) 157.52 ml LV EF (4C MOD) 65 % LV Diastolic Volume (2C MOD) 140.85 ml LV EF (2C MOD) 66 % LV Diastolic Volume (BP MOD) 148.85 ml 46.00-106.00 LV Diastolic Volume Index (BP MOD) 0.08 l/m2 0.03-0.06 LV Systolic Volume (BP MOD) 51.25 ml 14.00-42.00 LV Systolic Volume Index (BP MOD) 0.03 l/m2 0.01-0.02 LV EF (BP MOD) 66 % 54-74 LV Diastolic Length (4C) 8.57 cm LV Systolic Length (4C) 6.87 cm LV Stroke Volume (4C MOD) 102.87 ml LV CO (BP MOD) 7.47 l/min LV CI (BP MOD) 3.97 L/min/m2 Report Signatures
--- NOTE | 2024-07-15 08:27 | EST_ITS ---
Patient Info Name: Anastasiya Bertrand Age: 63 years : 1960 Gender: Female Ht: 67 in Wt: 165 lbs BSA: 1.89 m2 HR: 76 bpm BP: 138 / 78 mmHg Exam Date: 07/15/2024 9:22 AM Exam Location: Echo Lab Patient Status: Outpatient Admit Date: 07/15/2024 Staff Ordering Physician: Wojciech Cristobal DO Attending Provider: Wojciech Cristobal DO Exercise Technologist: La Correa RDCS Exercise Physician: Wojciech Cristobal DO Exam Type: CA stress delia w NM Study Info A regadenoson stress test was performed. Summary 1. 1. Negative lexiscan stress test for ischemic ST changes by ECG criteria. 2. 2. Stable hemodynamics throughout the test. 3. 3. Nuclear scan to follow and will be reported separately. Please correlate with it. 4. 4. Patient informed of the above results. Protocol: Lexiscan Stress ECG Details Stage: REST Duration (min): 1 min : 55 sec HR (bpm): 76 SBP (mmHg): 138 DBP (mmHg): 78 Stage: REST Duration (min): 6 min : 49 sec HR (bpm): 70 SBP (mmHg): 138 DBP (mmHg): 78 Stage: STAGE 1 Duration (min): 1 min : 0 sec HR (bpm): 94 SBP (mmHg): 138 DBP (mmHg): 77 Stage: RECOVERY Duration (min): 1 min : 0 sec HR (bpm): 98 SBP (mmHg): 138 DBP (mmHg): 77 Stage: RECOVERY Duration (min): 2 min : 0 sec HR (bpm): 96 SBP (mmHg): 138 DBP (mmHg): 77 Stage: RECOVERY Duration (min): 3 min : 0 sec HR (bpm): 91 SBP (mmHg): 136 DBP (mmHg): 79 Stage: RECOVERY Duration (min): 3 min : 7 sec HR (bpm): 92 SBP (mmHg): 136 DBP (mmHg): 79 Rest HR: 70 bpm Peak HR: 99 bpm Rest Sys BP: 138 mmHg Peak Sys BP: 138 mmHg Max Pred HR: 159 bpm % Max Pred HR: 62 % Target HR: 135 bpm Max RPP: 13,662 bpm*mmHg Termination Reason: Completed protocol Cardiac Symptoms: Shortness of breath Total Time: 1 min : 0 sec Rest Lopez BP: 78 mmHg Peak Lopez BP: 77 mmHg Total Dose: 0.4 mg Resting ECG Sinus rhythm. Stress ECG No ST changes. Arrhythmias None. Report Signatures
== END 2024-07-15 08:16 | disposition home or self-care (01) ==
PROVIDERS: PCP Family Medicine; Visit Provider Internal Medicine Cardiovascular Disease
DX: Z01.810 Encounter for preprocedural cardiovascular examination (principal); R01.1 Cardiac murmur, unspecified; I51.89 Other ill-defined heart diseases; I35.8 Other nonrheumatic aortic valve disorders; I35.0 Nonrheumatic aortic (valve) stenosis; I34.81 Nonrheumatic mitral (valve) annulus calcification
CPT/HCPCS: 78452; 93017; 93306; 96375; A9502; C8929; J2785

== ENCOUNTER 2024-08-30 11:56 | Outpatient (CLI) | payer OTHER, SELFPAY ==
--- OUTSIDE RECORDS SUMMARY | 2024-08-30 12:56 | XMS_ITS | Continuity of Care Document ---
Author Organization [facility] Address [address] [place] [address] Phone Care Team Providers Care Decker Operator Name Role Phone Nascimento OD, Magdy Unavailable Unavailable Advance Directives Directive Yes / No Effective Date File Name No Information Encounters Encounter Description Practice Location Reason(s) For Visit Diagnoses Date Provider Providers Copied on Encounter [facility], [address], [place], [place], [id number], [place] tel:[phone] [facility] No Information 0 3-200 2 Nascimento OD Magdy. [address] , [address], [place], [address], [place]. tel:[phone] Family History Family Member Type Diagnosis Age At Onset No Information Payers Payer name Insurance type Covered libertarian ID Authoriza tion(s) No Information Social History Type Description Quantity Date Captured Comments Sex Female Smoking Status No Information Chief Complaint And Reason For Visit No Information Reason For Referral Reason For Referral No Information History Of Present Illness Encounter Date Complaint History Of Prese nt Illness No Information Functional Status Date Functional Assessmen t No Information Instructions Date Instruction Additional Infor mation No Information Assessments Type Assessment Date No Information Patient Care Teams Name Effective Dates (start - stop) Status Members No Information
--- OUTSIDE RECORDS SUMMARY | 2024-08-30 12:56 | XMS_ITS | Patient Health Record ---
Author Organization [employer] Address [address] [facility] [address] [place], [place] [id number] Care Team Providers Care Weld Fitter Name Role Phone MUReaganLAURO Primary Care Provider Cuauhtemoc Blair Unavailable [phone] REASON FOR REFERRAL No Information MEDICATIONS Medication SIG (Take, Route, Frequency, Duration) Notes Start Date End Date Status pravastatin 40 mg 1 tab(s) orally once a day (at bedtime) Active Xanax 0.25 mg 1 tab(s) orally prn Active Womens Pack Therapeutic Multiple Vitamins with Minerals 1 tab(s) orally once a day Active Fish Oil 1000 mg 1 cap(s) orally bid Active Vitamin D3 1000 intl units 1 tab(s) oral ly once a day Active vitamin B complex 1 tab daily Active Mirapex 0.5 mg 1 tab(s) orally 3 times a day Active lisinopril 20 mg 1 tab(s) orally bid Active hydroCHLOROthiazide 25 mg 1/2 tab(s) ora lly once a day Active levothyroxine 137 mcg (0.137 mg) 1 tab(s) orally once a day Active folic acid 1 mg 1 tab(s) orally once a day 08/04/2014 Active Aspir 81 81 mg 1 tab(s) orally once a day Active meloxicam 15 mg 1 tab(s) orally once a day for 90 05/28/2016 Active SOCIAL HISTORY Tobacco Use: Social History Observation Description Date Details (start date - stop date) Never Smoker NA - NA Sex Assigned At : Social History Observation Description Sex Assigned At Unknown Tobacco Use: Question Answer Notes Smoking Status nonsmoker PROBLEMS Problem Type ICD Code Onset Dates Problem Status W/U Status Risk SNOMED Code Notes Problem Polyarthralgia (719.49) Active confirmed Polyarthralgia (67090902) Problem Myalgia (729.1) Active confirmed Myalgi a (41191809) Problem POLYARTHRITIS (716.59) Active confirmed Polyarthritis (523683965) Problem LOW BACK PAIN (724.2) Active confirmed Low back pain (896342096) Problem Psoriasis (696.1) Active confirmed Psor iasis (8872601) Problem Psoriatic Arthritis (696.0) Active confirmed Psoriatic arthritis (086519907) Problem MONITOR MED (V58.69) Active confirmed Long-term drug therapy (482465686) Problem SCREENING-PULMONA RY TB (V74.1) Active confirmed Tuberculosis screening (965602202) Problem Psoriatic arthritis (L40.50) Active confirmed 24768113 Problem Other snf (current) drug therapy (Z79.899) Active confirmed 152050165 Problem 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 terminal 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 controller current use of non-steroidal anti-inflammatori es (NSAID) (Z79.1) Active confirmed 679424127 Problem Pain in joints of both feet (M79.671) Active confirmed Pain in limb (95889982) Problem Never smoked cigarettes (Z78.9) Active confirmed 553990399 Problem Cervicalgia (M54.2) Active confirmed Cervicalgia (70484773) Problem Tremors of nervous system (R25.1) Active confirmed 64589335 Problem Parkinsons disease (G20) Active confirmed 09628548 PLAN OF TREATMENT Pending Test Test Name Order Date C-Reactive Protein, Quant 07/06/2014 HLA B 27 Disease Association 07/06/2014 CCP IgG Antibodies 07/06/2014 Hepatitis Panel (4) 02/01/2015 INJ TRIAMCINOLONE ACETONIDE 10 MG 2015 X ray : Spines, cervical- outside order 10/01/2015 X ray : Foot Left- outside order 015 X ray : Foot Right- outside order 2014 [facility] 01/04/2015 -Xray slip given 10/01/2015 Insurance Providers Payer Name Payer Address Payer Phone Subscriber Number Group Number Insured Name Patient Relationship to Insured Coverage Start Date Coverage End Date PriceArea OPEN ACCESS [address] [place] [address] [id number] Anastasiya Bertrand Self - patient is the insured 6 MEDICAL (GENERAL) HISTORY Medical History History ICD Code tension headaches sinus problems thyroid disease high blood pressure pneumonia heart murmur bronchitis constipation hemorrhoids abnormal pap smear extreme menstrual pain anxiety depression chicken pox mononucleosis Surgical History Surgery Date(Month/Year) tubal ligation 1986 elbow surgery-right epicondylectomy 1993 hysterectomy-partial 1994 arthroscopic knee surgery-2004 2004 Septoplasty 2008 turbinectomy 2008 hip replacement-total left 2013 hemorrhoidectomy-10/04 laminectomy
--- OUTSIDE RECORDS SUMMARY | 2024-08-30 12:56 | XMS_ITS | Encounter Summary ---
Author Organization [facility] Address [address] [place] [address]. [place], [place] [id number] [place] [id number] Care Team Providers Care Offset Press Operator Apprentice Name Role Phone Mario Albarado MD Primary Care Provider [phone] Kd Abraham MD Primary Care Provider [phone] Encounter Details Date Type Department Care Team (Late st Contact Info) Description 12/31/2012 Abstract [facility] CONVERSION [address] [place] [address] , Generic MD Ray Social History Tobacco Use Types Packs/Day Years Used Date Smoking Tobacco: Never Assessed Comments Unknown Sex and Gender Information Value Date Recorded Sex Assigned at Not on file Legal Sex Female 6:24 PM CDT Gender Identity Not on file Sexual Orientation Not on file documented as of this encounter Plan of Treatment Not on file documented as of this encounter Visit Diagnoses Not on filedocumented in this encounter Care Teams Offset Press Operator Apprentice Relationship Specialty Start Date End Date Mario Albarado MD PCP - General 06/24/11 01/05/20 Kd Abraham MD [id number] [place] [address] PCP - General INTERNAL MEDICINE 01/06/20 documented as of this encounter
--- OUTSIDE RECORDS SUMMARY | 2024-08-30 12:56 | XMS_ITS ---
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 Name Role Phone Adam BRISCOE OD, Darrel Morton Unavailable [phone] Shamir Redd MD Unavailable Leonarda Olivares DO Primary Care Provider [phone] Active Problems Problem Noted Date Diagnosed Date Myalgia 05/08/2023 Tremors of nervous system 05/08/2023 Levodopa-induced dyskinesia 05/08/2023 Chronic fatigue 04/19/2021 Low back pain 10/03/2019 Cervicalgia 10/03/2019 Polyarthralgia 10/03/2019 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 Psoriasis 10/03/2019 Insomnia due to medical condition 10/03/2019 Encounter for follow-up surveillance of breast c ancer 11/18/2018 Malignant neoplasm of upper- inner quadrant of right breast in female, estrogen receptor positive 10/10/2018 Cancer Staging:Pathologic stage from 09/27/2018:Stage IA(pT1a, pN0(sn), cM0, G2, ER+, MT+, HER2-) - Signed by Kasi Lobato MD on 10/14/2018 Clinical: Unsigned Abnormal mammogram 08/24/2018 Parkinson disease 03/31/2018 Assessment & Plan (07/11/2024 12:38 PM TRACK HELPER): She has stage 2, tremor-predominant PD with good response to levodopa but short duration of benefit with less wearing off recently. Wearing off is always much worse with stress or increased activity. Dyskinesia has been better since she retired and she did not tolerate amantadine in the past due to feeling hyped and foggy . She didn't think rasagiline was helpful and it also made her hyped . Baclofen has been helpful for her neck pain and overall stiffness but she takes it rarely since group home. She has fatigue but avoids caffeine due to bloating. She successfully had carpal and radial tunnel surgeries of the left arm and is still on gabapentin, which is helpful for her sleep, as well as the trazodone. We will keep those the same. She should increase her Miralax frequency given the unintentional weight loss and constipation. She should continue RSB and has completed PT. Overall she is doing extremely well considering it has been about 14 years since symptom onset. She does not have any apparent cognitive involvement on exam but does note mild changes in recall and multi-tasking. Stress seems to be a major exacerbating factor for her PD symptoms and this did improve with semi- group home She tried escitalopram and noted nausea so stopped after a week. At this point, she isn't interested in trying a med for anxiety but I would have a low threshold to treat in the future. Recommendations: -Same carbi/levo IR and CR. - Could consider Rytary if insurance would cover. - Could consider entacapone. - Same PRN baclofen. - Continue [employer] and regular exercise - Same trazodone and gabapentin. - She is interested in the pump and I will refer her. - Increase Miralax. Assessment & Plan (01/08/2024 9:30 PM CDT): She has stage 2, tremor-predominant PD with good response to levodopa but short duration of benefit and some now more persistent wearing off, much worse with stress or increased activity. Dyskinesia has been better since she retired and she never started amantadine. We will hold off on that. For the wearing off, we will add rasagiline since she is already taking carbi/levo up to 6x/day. An AFO has helped with the left foot dystonia but she needs a new brace and we will recommend that. Baclofen has been helpful for her neck pain and overall stiffness. She has fatigue but avoids caffeine due to bloating. She has been noting some paresthesia/neuropathy type symptoms of the left hand and arm and we will first draw a lab panel and could consider EMG/NCS. She should continue RSB and has completed PT. Overall she is doing extremely well considering it has been about 14 years since symptom onset. She does not have any apparent cognitive involvement on exam but does note changes in recall and multi-tasking that can affect her work. Stress seems to be a major exacerbating factor for her PD symptoms and this did improve with semi- group home She tried escitalopram and noted nausea so stopped after a week. At this point, she isn't interested in trying a med for anxiety but I would have a low threshold to treat in the future. Trazodone has been helpful for sleep and we will continue her current dose. Recommendations: -May take CD/LD 3 tabs up to 6 times daily, as well as 2.5 tab at bedtime with 1 tab of CR 50/200 and may take an extra 1 tab as needed for breakthrough tremor and may take doses earlier if needed for wearing off. - start rasagiline. - Could consider Rytary if insurance would cover. - Same PRN baclofen. Possibly consider botulinin. - Continue [employer] and regular exercise - Same trazodone. Assessment & Plan (05/08/2023 1:09 PM CDT): She has stage 2, tremor-predominant PD with good response to levodopa but short duration of benefit and some occasional wearing off, much worse with stress or increased activity. Dyskinesia has been better since she retired and she never started amantadine. We will hold off on that. For the wearing off, she may take doses up to 6 times daily when needed (up early, stay up late, or frequent early wear offs on active days). An AFO has helped with the left foot dystonia. Baclofen has been helpful for her neck pain and overall stiffness. She has fatigue but avoids caffeine due to bloating. B12 and TSH were recently tested and were normal. She should continue RSB and has completed PT. Overall she is doing extremely well considering it has been 13+ years since symptom onset. She does not have any apparent cognitive involvement on exam but does note changes in recall and multi-tasking that can affect her work. Stress seems to be a major exacerbating factor for her PD symptoms and she is hopeful this will improve with group home She tried escitalopram and noted nausea so stopped after a week. At this point, she isn't interested in trying a med for anxiety but I would have a low threshold to treat in the future. Trazodone has been helpful for sleep but she is still waking up after about 1.5 hours of sleep and having to take an extra half of a trazodone. She may try taking 1.5 or even 2 tabs of trazodone at bedtime to see if that works better but watch for morning grogginess. Recommendations: -May take CD/LD 3 tabs up to 6 times daily, as well as 1.5 tab at bedtime with 1 tab of CR 50/200 and may take an extra 1 tab as needed for breakthrough tremor and may take doses earlier if needed for wearing off. - Same PRN baclofen. Possibly consider botulinin. - Continue [email or web address] boxing and regular exercise - Increase trazodone. - Could consider amantadine in the future. Assessment & Plan (01/06/2023 2:01 PM CDT): She has stage 2, tremor-predominant PD with good response to levodopa but short duration of benefit and some occasional wearing off, much worse with stress. Since knowing she will retire in one month, both the peak dose dyskinesia/dystonia and the wearing off have been dramatically better. She did not start amantadine as she has not felt she needed it lately since school is out and she is only working from home for the next month before she retires. An AFO has helped with the left foot dystonia. Baclofen has been helpful for her neck pain and overall stiffness. Dyskinesia at this time is not bothersome enough to add amantadine. She has fatigue but avoids caffeine due to bloating. B12 and TSH were recently tested and were normal. She should continue RSB and has completed PT. Overall she is doing extremely well considering it has been 13+ years since symptom onset. She does not have any apparent cognitive involvement on exam but does note changes in recall and multi-tasking that can affect her work. Stress seems to be a major exacerbating factor for her PD symptoms and she is hopeful this will improve with group home She tried escitalopram and noted nausea so stopped after a week. Trazodone has been helpful for sleep and we will continue that. Recommendations: -continue CD/LD 3 tabs 5 times daily (7:30, 10:30, 1:30, 4:30, 7:30), as well as 1.5 tab at bedtime with 1 tab of CR 50/200 and may take an extra 1 tab as needed for breakthrough tremor and may take doses earlier if needed for wearing off. - Same PRN baclofen. Possibly consider botulinin. - Continue [email or web address] boxing and regular exercise - Same trazodone. - Could consider amantadine in the future. Assessment & Plan (09/02/2022 3:01 PM TRACK HELPER): She has stage 2, tremor-predominant PD with good response to levodopa but short duration of benefit and some occasional wearing off, much worse with stress. She has side-effects of sleepiness and mild peak-dose dyskinesia with end of dose dystonia in the feet on her current regimen--an AFO has helped with the left foot. Baclofen has been helpful for her neck pain and overall stiffness. Dyskinesia at this time is not bothersome enough to add amantadine. She has fatigue but avoids caffeine due to bloating. B12 and TSH were recently tested and were normal. She should continue RSB and has completed PT. Overall she is doing extremely well considering it has been 13+ years since symptom onset. She does not have any apparent cognitive involvement on exam but does note changes in recall and multi-tasking that can affect her work. Stress seems to be a major exacerbating factor for her PD symptoms and she is hopeful this will improve once she files for disability at the first of the year. She would like to hold off on an SSRI for now. She tried escitalopram and noted nausea so stopped after a week. Her sleep is still iffy with middle insomnia and she may try to increase trazodone to 150 mg qhs but watch for morning grogginess. Recommendations: -continue CD/LD 3 tabs 5 times daily (7:30, 10:30, 1:30, 4:30, 7:30), as well as 1.5 tab at bedtime with 1 tab of CR 50/200 and may take an extra 1 tab as needed for breakthrough tremor and may take doses earlier if needed for wearing off. - Same PRN baclofen. Possibly consider botulinin. - Continue [employer] and regular exercise - May try increasing trazodone to 150 mg qhs for insomnia but watch for morning grogginess. Assessment & Plan (03/31/2022 4:38 PM CDT): She has stage 2, tremor-predominant PD with good response to levodopa and now more bothersome wearing off between doses. She has side-effects of sleepiness and mild peak-dose dyskinesias with end of dose dystonia in the feet on her current regimen. We will push her doses of carbi/levo closer together to help with the wearing off Baclofen has been helpful for her neck pain. She has fatigue and should start caffeine at breakfast and lunch. B12 and TSH were recently tested and were normal. She should also start PD Voice [employer] exercises and should continue RSB. Overall she is doing extremely well considering it has been 13+ years since symptom onset. She does not have any apparent cognitive involvement. Stress seems to be a major exacerbating factor for her PD symptoms and she is hopeful this will improve once she files for disability at the first of the year. If this continues to be a problem we can discuss starting an SSRI in the future, which may help with some of these fluctuations. Recommendations: -continue CD/LD 3 tabs 5 times daily (7:30, 10:30, 1:30, 4:30, 7:30), as well as 1.5 tab at bedtime with 1 tab of CR 50/200 and may take an extra 1 tab as needed for breakthrough tremor. -May try adding lunchtime caffeine to see if this helps energy in the evening. - Same PRN baclofen. Possibly consider botulinin. -continue [employer] and regular exercise -Start PD Voice Project. Assessment & Plan (11/13/2021 3:14 PM CDT): She has stage 2, tremor-predominant PD with good response to levodopa and minimal wearing off between doses. She has side-effects of sleepiness and mild peak-dose dyskinesias with end of dose dystonia in the feet on her current regimen, but these are not bothersome. We will not make any changes today, other than encouraging her to take an extra 1/2 tab overnight as needed when she awakens with recurrent tremor. We discussed crushing it in orange juice, shake vigorously then drink for more rapid onset, if desired. Overall she is doing extremely well considering it has been 13 years since symptom onset. She does not have any apparent cognitive involvement. Stress seems to be a major exacerbating factor for her PD symptoms. If this continues to be a problem we can discuss starting an SSRI in the future, which may help with some of these fluctuations. Finally, she was previously involved in our PAND study, but has not been seen recently due to work constraints. We will contact her about scheduling a follow- up appointment for this. She also has bilateral mild biceps tendonitis with tenderness at both tendon insertions. This is commonly associated with PD and may respond to stretching exercises. Recommendations: -continue CD/LD 3 tabs 5 times daily (7:30, 10:30, 1:30, 4:30, 7:30), as well as 1 tab at bedtime with 1 tab of CR 50/200 -can take an extra 1/2 tab overnight as needed. Crush in orange juice for more rapid onset -continue [employer] and regular exercise -stretching for biceps tendonitis. -schedule follow-up appointment for PAND study Assessment & Plan (07/23/2021 3:48 PM TRACK HELPER): She has stage 2 PD that tremor predominant with excellent response to levodopa and with recent changes, no further wearing off and no dose limiting side effects. She has unilateral tremor and bradykinesia (left more than right) but may have end of dose dystonia in the neck and right hand. Her dose typically lasts about 3 hours during the day but longer in the evening (when not at work). Work has become a bit more difficult for her as stress really can worsen her symptoms. 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 Now that she is feeling better physically, she no longer feels depressed or anxious. She has had no side effects of levodopa. She does not have any cognitive effects of PD. She has more urinary urgency but no incontinence. She notices some fatigue and less stamina overall, especially bothersome when working in-person. CBC, B12, MMA, homocysteine and UA checked in 04/2021 were normal. The unintentional weight loss seems to have tapered off with a lower dose of levothyroxine and carbi/levo adjustment. Recommendation - Same carbi IR and ER. - Continue exercise and [employer] and walking for exercising. - Same trazodone. Assessment & Plan (04/19/2021 3:05 PM CDT): She has stage 2 PD that tremor predominant with excellent response to levodopa but with some progression in the interim and more consistent and bothersome wearing off and possible end of dose dystonia. She has unilateral tremor and bradykinesia (left more than right) but may have end of dose dystonia in the neck and right hand. Her dose typically lasts about 3 hours during the day but longer in the evening (when not at work). Work has become a bit more difficult for her as stress really can worsen her symptoms. She notes worsened dexterity, some occasional sense of imbalance, and overall a sense of loss of strength, worse on the left side and somewhat worse when wearing off. Today, she was likely only partially on and her UPDRS score worsened by about 10 points. She also had some loss of strength in the left hand. She had no associated sensory symptoms. In the past, she had neck injections for pain but has had no recent MRIs but still has some pain in the neck, back of head and shoulders possibly worse when worn off. If this symptom does not improve with increased levodopa, she may need an MRI of her cervical spine (would need pretreatment with a benzo for claustrophobia). We will first try increasing her first dose of the day for levodopa and pushing doses to every 3 hours for the wearing off. If this is onerous, we could consider an even higher dose given every 4 hours. 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 She may have mild depression and anxiety (she denies this but was tearful and a bit anxious today)( but does not feel it is substantial enough to require treatment. She has had no side effects of levodopa. She does not have any cognitive effects of PD. She has more urinary urgency but no incontinence. She notices worsened fatigue and less stamina overall, especially bothersome when working in-person. Given the fatigue and worsened urinary urgency, we will check CBC, B12, MMA, homocysteine and UA. She had recent decrease in levothyroxine and may need this re-increased as this may also contribute to fatigue but she will f/u with PMD for this. Recommendation - Increase levodopa as directed. - Continue exercise and [employer] and walking for exercising. - Get labs as directed. - Start PT and we will give rx. - Renewed handicapped parking permit for [place] and gave to patient. Assessment & Plan (12/21/2020 12:36 PM CDT): She has stage 2 PD that tremor predominant with excellent response to levodopa but with some occasional wearing off and possible end of dose dystonia. She has unilateral tremor and bradykinesia (left more than right). Her dose typically lasts about 4-5 hours. However, she does have end of dose dystonia with wearing off at times and may continue taking an extra half tab of levodopa. Work has become a bit more difficult for her as stress really can worsen her symptoms. 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 She has mild depression and anxiety but does not feel it is substantial enough to require treatment. She has had no side effects of levodopa. She does not have any cognitive effects of PD. Recommendation - Continue same CD/LD 25-100 and CD/LD 50-200 with some shifts in dose timing. - Can take extra 1/2 tabs as needed and move doses earlier if needed. - Continue exercise and [employer] and walking for exercising. Assessment & Plan (06/20/2020 2:40 PM TRACK HELPER): She has stage 2 PD that tremor predominant with excellent response to levodopa. She has unilateral tremor and bradykinesia (left more than right). Her dose typically lasts about 6 hours. However, she does have end of dose dystonia with wearing off in the evening typically right before the last dose of the day. She also occasionally awakens at 5 am with a painful left foot dystonia, consistent with early-morning dystonia. She had been waiting another 1-1.5 hours to take her first dose sustaining that foot discomfort -- it is reasonable to start her levodopa when awakening on those days and then shifting all other doses to maintain the same intervals between doses. She has had no side effects. She does not have any cognitive effects of PD. Recommendation - Continue same CD/LD 25-100 and CD/LD 50-200 with some shifts in dose timing. - Can take 7:30am dose as early as 5am when she awakens with pain and dystonia. - Take 8pm dose earlier by 1-2 hours. She will start tracking when the end-of-dose dystonia occurs, and will take the 8pm dose earlier. - Continue exercise and [employer]. Assessment & Plan (10/03/2019 10:55 AM TRACK HELPER): She has very mild stage 2 PD with excellent response to levodopa with improvement in wearing off, tremor and rigidity after increase in medicine at last visit. She will continue her current dose for now and could still take an extra half tab as needed for bothersome tremor return. She will continue her CR dose at night. She has no dose limiting side effects. She has trouble with pain in her left buttock/periformus muscle and it is unclear if this is related to PD (she is unsure if levodopa helps the pain) or to a hip problem on the left. She can continue the exercise program which has included [employer]. Her constipation is controlled with Miralax. Her mood is generally good though she possibly has some SAD and is not interested in treatment at this time. Her thinking and memory are good. Her insomnia is well controlled on trazodone. Recs: 1. Same carbi/levo and carbi/levo ER. 2. Same trazodone. 3. Continue exercise, RSB and stretching. 4. Same Miralax. Assessment & Plan (04/21/2019 12:31 PM CDT): She has very mild stage 2 PD with excellent response to levodopa but she has noted more stiffness that she thinks is worse the nearer she is to her next dose of medicine so we will try a slightly increased dose of 2 tabs during the day. She will continue her CR dose at night. She has no dose limiting side effects. She has trouble with pain in her left buttock/periformus muscle and it is unclear if this is related to PD (she is unsure if levodopa helps the pain) or to a hip problem on the left. She can continue the exercise program which has included [employer]. She still has some insomnia with 100 mg of trazodone and may take an extra 1/2 to 1 tab if she is having a bad week with her sleep or may try consistently taking 1.5 tabs of trazodone at bedtime to see if that works better. Her mood is good as is thinking and memory. Recs: 1. Increase carbi/levo to 2 tabs tid. 2. Same trazodone but may take extra 1/2 to 1 tab PRN if insomnia. 3. Continue exercise and RSB. Assessment & Plan (09/06/2018 11:43 AM TRACK HELPER): She has very mild stage 2 PD with excellent response to levodopa. Overall, she is doing quite well on a modest dose of levodopa. She has no dose limiting side effects but does have some wearing off and we will give her permission to take an extra half tab of carbi/levo as needed. She has trouble with pain in her left buttock/periformus muscle and it is unclear if this is related to PD (she is unsure if levodopa helps the pain) or to a hip problem on the left. She can continue the exercise program which has included [employer]. She still has some insomnia with 100 mg of trazodone and may take an extra 1/2 to 1 tab if she is having a bad week with her sleep. Her mood is good as is thinking and memory. Recs: 1. Same levodopa but may take extra 1/2 pill PRN for wearing off. 2. Same trazodone but may take extra 1/2 to 1 tab PRN if insomnia. 3. Continue exercise and RSB. 4. Gave handicapped parking permit today. 5. Continue with chiropractor for now for left hip pain since she believes it is helpful. Psychophysiological insomnia 01/02/2017 Hypothyroidism 03/13/2016 Allergic rhinitis 03/13/2016 Primary osteoarthritis of both hips 06/15/2015 Hip joint replacement by other means 02/21/2015 Psoriatic arthritis 02/08/2015 Overview (09/06/2018): Overview: Diagnosed August [address] Daniel[address] Psoriasis, diffuse arthralgias, and sausage digits. On immunosuppressants. Migraines 10/15/2012 Anxiety and depression 10/14/2012 History of total hip replacement, left 3 HLD (hyperlipidemia) 10/14/2012 HTN (hypertension) 10/14/2012 Current Oncology Plans No current plan information found. Past Plans No past plan information found. Radiation Treatments * Plan Last Treated On Elapsed Days Fractions Treated Prescribed Fraction Dose Prescribed Total Dose VR RLIQ BRST 11/04/2018 2 3 850 cGy 2,550 cGy Reference Point Last Treated On Elapsed Days Session Dose Total Dose RLIQ BREAST 2550 11/04/2018 2 850 cGy 2,550 cG y Resolved Problems Problem Noted Date Diagnosed Date Resolved Date Severe obesity (BMI 35.0-39. 9) with comorbidity 03/20/2017 05/08/2023
--- OUTSIDE RECORDS SUMMARY | 2024-08-30 12:56 | XMS_ITS | Clinical Summary ---
Author Organization [facility] Address [address] [place] [address] Phone Care Team Providers Care Boiler Plant Worker Name Role Phone Kd Abraham MD Primary Care Provider [phone] Allergies Active Allergy Reactions Criticality Noted Date Comments Adhesive Other (See Comments) 10/01/2012 Redness with bandaids Amoxicillin-Pot Clavulanate Nausea and Vomiting Low 01/05/2017 Medications multivitamin (DAILY-JESICA) Oral tablet Take 1 Tab by mouth daily. Active aspirin (ECOTRIN EC) 81 mg Tablet, Delayed Release (E.C.) Take 81 mg by mouth daily. Active hydroCHLOROthiazi de 25 mg tabletIndications :Essential hypertension Take 1 Tablet (25 mg) by mouth 2 times daily. 180 Tablet 1 7 Active pravastatin (PRAVACHOL) 40 mg tablet Take one tablet by mouth every day 90 Tablet 3 7 Active carbidopa-levodop a (SINEMET) 25-100 mg tablet Take 1.5 Tablets by mouth 3 times daily. 405 Tablet 3 7 Active polyethylene glycol (polyethlene glycol) 17 gram Powder in Packet Take 1 Packet (17 Grams) by mouth daily. 30 Packet 5 7 Active fluticasone (FLONASE) 50 mcg/spray [place], Suspension Administer 2 Sprays in each nostril daily Do not spray and sniff at exact same time, aim bottle towards OUTSIDE of nose. 16 Gram 3 7 Active LEVOTHYROXINE 125 mcg tablet TAKE ONE TABLET BY MOUTH IN THE MORNING 90 Tablet 3 7 Active lisinopril (PRINIVIL) 40 mg tablet TAKE ONE TABLET BY MOUTH ONE TIME DAILY 90 Tablet 2 7 Active meloxicam (MOBIC) 15 mg tablet Take 1 Tablet (15 mg) by mouth daily. 30 Tablet 1 8 Active meloxicam (MOBIC) 15 mg tablet Take one tablet by mouth every day 30 Tablet 8 Active Active Problems Patient Care Coordination No te Formatting of this note migh t be different from the original. Primary Care: Eagle Kaiser MD Referring [place]: [place] [address] [place] [address] Other: Dr Teodora Figueroa MD Problem Noted Date Diagnosed Date Severe obesity (BMI 35.0-39.9) with comorbidity 03/20/2017 Psychophysiological insomnia 01/02/2017 Abnormal mammogram 09/04/2016 Allergic rhinitis 03/13/2016 Hypothyroidism 03/13/2016 Parkinson disease 02/18/2016 Primary osteoarthritis of both hips 06/15/2015 Hip joint replacement by other means 02/21/2015 Psoriatic arthritis 02/08/2015 Overview (02/08/2015): Diagnosed August [address] Daniel. Psoriasis, diffuse arthralgias, and sausage digits. On immunosuppressants. Migraines 10/15/2012 History of total hip replacement, right 10/15/19 13 HTN (hypertension) 10/14/2012 Anxiety and depression 10/14/2012 HLD (hyperlipidemia) 10/14/2012 Resolved Problems Problem Noted Date Diagnosed Date Resolved Date Dehydration 01/02/2017 03/19/2017 Poor appetite 01/02/2017 03/19/2017 Visit for screening mammogram 09/15/2016 03/19/2017 Parkinson's disease 04/16/2016 01/06/20 17 Polyethylene liner wear foll owing total hip arthroplasty requiring isolated polyethylene liner exchange 04/11/2016 03/19/2017 Acute blood loss anemia 01/25/201403/03 Hypothyroidism 10/14/2012 02/08/2015 Immunizations Immunization Administration Dates Next Due (ADACEL/BOOSTRIX)(10 YR UP) TDAP VACCINE, 0.5ML, IM 03/20/2017 (PNEUMOVAX 23)(50 YRS UP) PN EUMOCOCCAL POLYSACCHARIDE (PPV23) 0.5 ML, IM 06/15/2015 (PREVNAR 13)(6 WKS UP) PNEUM OCOCCAL CONJUGATE (PCV13) 0.5 ML, IM 02/08/2015 Influenza Seasonal Unspecifi ed Formulation IM 05/14/2017,12/10/2014,05/03/2013,05/16 Family History Medical History Relation Name Comments Heart Disease Father Heart Failure Father Hypertension Father Hypertension Mother Breast Cancer Neg Hx Ovarian Cancer Neg Hx Relation Name Status Comments Father Mother Alive Social History Tobacco Use Types Packs/Day Years Used Date Smoking Tobacco: Never Smokeless Tobacco: Never Tobacco Cessation:Counseling Given: No Alcohol Use Standard Drinks/Week Comments No 0 (1 standard drink = 0.6 oz pur e alcohol) Comments No Sex and Gender Information Value Date Recorded Sex Assigned at Not on file Legal Sex Female 4:29 AM PURCHASING AND 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 Gender Identity Not on file Sexual Orientation Not on file Occupation Industry Job Start Date Job End Date Not on file Not on file Not on file Not on file Not on file Not on file Not on file Not on file Last Filed Vital Signs Vital Sign Reading Time Taken Comments Blood Pressure 130/80 04/06/2020 9:14 AM CDT Pulse 87 06/22/2017 10:27 AM PURCHASING AND CLAIMS SUPERVISOR Temperature 36.5 ??C (97.7 ??F) 01/03/2017 8:28 AM CD T Respiratory Rate 18 01/03/2017 8:28 AM CDT Oxygen Saturation 96% 03/20/2017 9:34 AM CDT Inhaled Oxygen Concentration - - Weight 100.4 kg (221 lb 6.4 oz) 04/06/2020 9:14 AM CDT Height 170.2 cm (5' 7 ) 04/06/2020 9:14 AM CDT Body Mass Index 34.68 04/06/2020 9:14 AM CDT Plan of Treatment Health Maintenance Due Date Last Done Comments Pre-Diabetes and Diabetes Screening 1960 CERVICAL CANCER SCREENING 1992 FIT-DNA Q 3 years 2007 FIT/FOBT Q 1 year 2007 Flex Sig/CT Colonography Q 5 years 2007 ZOSTER VACCINE (1 of 2) 2012 BREAST CANCER SCREENING 09/03/2017 09/03/19 17, 08/22/2016, 06/14/2014, Additional history exists RSV VACCINE (60+ or ) (1 - Risk 60-74 years 1-dose series) 2022 INFLUENZA VACCINE (#1) 2024 8, 05/14/2017, 12/10/2014, Additional history exists COLORECTAL SCREENING 07/23/2025 07/23/2015, 07/23/20 15 Colorectal Cancer Screening 07/23/2025 DTAP/TDAP/TD VACCINES (3 - Td or Tdap) 07/16/2028 07/16/2018, 03/20/2017 PNEUMOCOCCAL VACCINE 0-64 YEARS Aged Out 06/15/2015, 02/08/2015 No longer eligibl e based on patient's age to complete this topic Medical Devices Implanted Type Area Cocktail Lounge Manager Device Identifier Shelf Expiration Date Model / Serial / Lot Shell Ringlc+ Pc 54mm [id number] - [id number] Implanted:Qty: 1 on 10/14/2012 at [facility] Hip Left: Hip [employer] 09/30/2022 [id number] / / [id number] Liner Epoly Mrom 40mm Sz24 [id number] - [id number] Implanted:Qty: 1 on 10/14/2012 at [facility] Hip Left: Hip [employer] 06/02/2015 [id number] / / [id number] Head Fem Biolox Option 40mm 650-1058 - [id number] Implanted:Qty: 1 on 10/14/2012 by Supa Godwin MD at [facility] Hip Left: Hip [employer] 01/30/2022 650-1058 / / [id number] Stem Fem Tprlc Red/Dis [id number] - [id number] Implanted:Qty: 1 on 10/14/2012 at [facility] Hip Left: Hip [employer] 08/02/2022 [id number] / / [id number] Slv Biolox Delta Optn Type 1 650-8122 - [id number] Implanted:Qty: 1 on 10/14/2012 at [facility] Hip Left: Hip [employer] 04/02/2022 [id number] / / [id number] Slv Biolox Delta Optn Type 1 650-1065 - [id number] Implanted:Qty: 1 on 01/24/2014 at [facility] Hip Right: Hip [employer] 10/01/2023 650-1065 / / [id number] Shell Ringlc+ Pc 52mm [id number] - [id number] Implanted:Qty: 1 on 01/24/2014 at [facility] Hip Right: Hip [employer] 09/02/2023 [id number] / / [id number] Stem Fem Tprlc R/D Sz9 [id number] - [id number] Implanted:Qty: 1 on 01/24/2014 at [facility] Hip Right: Hip [employer] 09/30/2022 [id number] / / [id number] Description:PROCESSED ON REQ UISITION,[id number]. Liner Arcomxl Rnglc Sz23 [id number] - [id number] Implanted:Qty: 1 on 04/15/2016 by Supa Godwin MD at [facility] Hip Right: Hip [employer] [id number] 02/08/2021 [id number] / / [id number] Description:Both Biomet revi rosa components are processed on requisition,[id number]. Head Fem Biolox Option 36mm 650-1057 - [id number] Implanted:Qty: 1 on 04/15/2016 by Supa Godwin MD at [facility] Hip Right: Hip [employer] [id number] 02/07/2026 650-1057 / / [id number] Explanted Type Area Cocktail Lounge Manager Device Identifier Shelf Expiration Date Model / Serial / Lot Liner Epoly Mrom 36mm Sz23 [id number] - [id number] Implanted:Qty: 1 on 01/24/2014 at [facility] Explanted:Qty: 1 on 04/15/2016 by Supa Godwin MD at [facility] Hip Right: Hip [employer] 07/02/2018 [id number] / / [id number] Head Fem Biolox Option 36mm 650-1057 - [id number] Implanted:Qty: 1 on 01/24/2014 at [facility] Explanted:Qty: 1 on 04/15/2016 by Supa Godwin MD at [facility] Hip Right: Hip [employer] 01/01/2024 650-1057 / / [id number] Procedures Procedure Name Priority Date/Time Associated Diagnosis Comments MAMMO DIAGNOSTIC UNI LEFT W OR WO CAD Routine 09/03/2016 from Last 3 Months or Most Recently Relevant to Health Maintenance Results * (ABNORMAL) MAMMO DIAGNOSTIC UNI LEFT W OR WO CAD (09/03/2016) Anatomical Region Laterality Modality Breast Left Other us Supa Hines MD MAMMO ORDERABLES Edit ed Result - Final from Last 3 Months or Most Recently Relevant to Health Maintenance Insurance [employer] [facility] [place] Advance Directives For more information, please contact: [phone] Documents on File Type Date Recorded Patient Production Sampler Expl anation Advance Directive POA 01/01/2017 11:50 PM Advance Directive Living Will 11/12/2012 11:01 PM Advance Directive Living Will * Full Code (Latest Code Status on File) Date Activated Date Inactivated Comments 01/02/2017 1:16 AM 01/03/2017 2:20 PM * Full Code Date Activated Date Inactivated Comments 04/15/2016 7:12 PM 04/17/2016 5:23 PM * Full Code Date Activated Date Inactivated Comments 04/15/2016 1:15 PM 04/15/2016 7:12 PM * Full Code Date Activated Date Inactivated Comments 07/23/2015 6:57 AM 07/23/2015 10:45 AM * Full Code Date Activated Date Inactivated Comments 01/24/2014 2:43 PM 01/26/2014 4:28 PM Care Teams Boiler Plant Worker Relationship Specialty Start Date End Date Kd Abraham MD [address] [place] [phone] PCP - General Internal Medicine 04/06/20
--- OUTSIDE RECORDS SUMMARY | 2024-08-30 12:56 | XMS_ITS | Clinical Summary ---
Author Organization [facility] Address [address] [place] [address] Phone Care Team Providers Care Rental Clerk Name Role Phone Adam BRISCOE OD, Darrel Morton Unavailable [phone] Shamir Redd MD Unavailable [phone] Leonarda Olivares DO Primary Care Provider [phone] Allergies Active Allergy Reactions Criticality Noted Date Comments Adhesive Rash,Other (See comments) Medium 10/01/2012 Paper tape (longer tapes are on but longer its on more chance of rash) Redness with bandaids Medications aspirin 81 mg tablet Take 1 tablet (81 mg total) by mouth nightly 12/27/19 17 Active lisinopril (PRINIVIL,ZEST RIL) 40 mg tablet Take 1 tablet (40 mg total) by mouth every morning 12/27/19 17 Active meloxicam (MOBIC) 15 mg tablet Take 1 tablet (15 mg total) by mouth every morning 12/27/19 17 Active polyethylene glycol (MIRALAX) 17 gram packet Take 1 packet (17 g total) by mouth Takes every three days as needed. 5 11/14/19 18 Active pravastatin (PRAVACHOL) 40 mg tablet Take 1 tablet (40 mg total) by mouth nightly 12/27/19 17 Active cholecalcifero l (VITAMIN D-3) 1,000 unit tablet Take 1 tablet (1,000 Units total) by mouth nightly 12/27/19 17 Active multivitamin tablet Take 1 tablet by mouth daily Active nystatin cream as needed 07/17/20 21 Active levothyroxine (SYNTHROID) 100 mcg tablet Take 1 tablet (100 mcg total) by mouth daily 06/22/20 22 Active levothyroxine (SYNTHROID) 88 mcg tablet 09/02/19 23 Active traZODone (DESYREL) 100 mg tablet Take 1.5 tabs at bedtime for one week and may increase to 2 tabs at bedtime. 180 tablet 3 05/08/20 23 Active leg brace [facility] Custom orthotic for the left lower leg/foot in patient with Parkinson Disease and dystonia. 1 each 01/04/20 24 Active carbidopa-levo dopa (SINEMET) 25-100 mg per tabletIndicati ons:Parkinsoni sm Take at 3 tabs up to 6 times daily (7:30am, 10:30am, 1:30pm, 4:30pm, 8:30pm, one extra dose as needed for staying up late) and 2.5 tab at bedtime. May take an extra tablet as needed for breakthrough tremor. 1845 tablet 3 06/27/20 24 Active baclofen (LIORESAL) 10 mg tablet TAKE 1 TABLET BY MOUTH UP TO TWICE DAILY FOR CRAMPING PAIN. 180 tablet 1 06/27/20 24 Active gabapentin (NEURONTIN) 300 mg capsule Take 1 capsule (300 mg total) by mouth nightly Active carbidopa-levo dopa CR (SINEMET CR) 50-200 mg per CR tabletIndicati ons:Parkinson disease (HCC) TAKE 1 TABLET BY MOUTH EVERY DAY AT NIGHT 90 tablet 3 08/07/19 25 Active carbidopa-levo dopa CR (SINEMET CR) 50-200 mg per CR tabletIndicati ons:Parkinson disease (HCC) TAKE 1 TABLET BY MOUTH EVERY DAY AT NIGHT 90 tablet 3 08/17/19 24 025 Discontinued Active Problems Problem Noted Date Diagnosed Date [...] from 09/27/2018:Stage IA(pT1a, pN0(sn), cM0, G2, ER+, PA+, HER2-) - Signed by Kasi Lobato MD on 10/14/2018 Clinical: Unsigned Abnormal mammogram 08/24/2018 Parkinson disease 03/31/2018 Assessment & Plan (07/11/2024 12:38 PM FIRE DISPATCHER): She has stage 2, tremor-predominant PD with [...] stiffness but she takes it rarely since residential. She has fatigue but avoids caffeine due [...] symptoms and this did improve with semi- residential She tried escitalopram and noted nausea so stopped after a week. At this point, she isn't interested in trying a med for anxiety but I would have a low threshold to treat in the future. Recommendations: -Same carbi/levo IR and CR. - Could consider Rytary if insurance would cover. - Could consider entacapone. - Same PRN baclofen. - Continue [employer] boxing and regular exercise - Same trazodone [...] symptoms and this did improve with semi- residential She tried escitalopram and noted nausea so [...] she is hopeful this will improve with residential She tried escitalopram and noted nausea so [...] [employer] boxing and regular exercise - Increase trazodone. [...] she is hopeful this will improve with residential She tried escitalopram and noted nausea so [...] baclofen. Possibly consider botulinin. - Continue [employer] boxing and regular exercise - Same trazodone. - Could consider amantadine in the future. Assessment & Plan (09/02/2022 3:01 PM FIRE DISPATCHER): She has stage 2, tremor-predominant PD with [...] study Assessment & Plan (07/23/2021 3:48 PM FIRE DISPATCHER): She has stage 2 PD that tremor [...] her symptoms. 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 If possible for her to gaming cage worker part of the time, that would [...] her symptoms. If possible for her to gaming cage worker part of the time, that would [...] exercising. Assessment & Plan (06/20/2020 2:40 PM FIRE DISPATCHER): She has stage 2 PD that tremor [...] Boxing. Assessment & Plan (10/03/2019 10:55 AM FIRE DISPATCHER): She has very mild stage 2 PD [...] RSB. Assessment & Plan (09/06/2018 11:43 AM FIRE DISPATCHER): She has very mild stage 2 PD [...] 3 HLD (hyperlipidemia) 10/14/2012 HTN (hypertension) 10/14/2012 Resolved Problems Problem Noted Date Diagnosed Date Resolved Date Severe obesity (BMI 35.0-39. 9) with comorbidity 03/20/2017 05/08/2023 Encounters Date Type Department Care Team Description 07/11/2024 11:00 AM FIRE DISPATCHER Office Visit [facility] [address] [place] [phone] Jessica Smith NP Parkinson's disease with dyskinesia and fluctuating manifestations (HCC) (Primary Dx); Levodopa-induced dyskinesia; Anxiety and depression; Psychophysiological insomnia; Chronic fatigue 07/04/2024 Telephone [facility] [address] [facility] [address] [facility] [address] [place] [address] [place] [address] Montserrat Fajardo NP 06/08/2024 Telephone [facility] [address] [place] [phone] Stella Moreno RN 06/07/2024 Documentation [facility] [address] [place] [phone] Sabrina Obrien CMA from Last 3 Months Immunizations Name Administration Dates Next Due Influenza, Trivalent, IM (MDV) 8,05/14/2017,12/10/2014, 3,05/16/2012 Influenza, Unspecified 05/14/2017,2014,05/03/2013, 2,05/16/2012 Pneumococcal Conjugate PCV 13 02/08/2015 Pneumococcal Polysaccharide PPV23 06/15/2015 Tdap 07/16/2018,03/20/2017 ZOSTER Recombinant 10/22/2018,07/16/2018 Surgical History Surgery Date Site/Laterality Comments TUBAL LIGATION 08/03/1986 - 08/02/1987 HYSTERECTOMY 08/03/1994 - 08/02/1995 with unilateral salpingo-oophorectomy KNEE ARTHROSCOPY 08/03/2003 - 08/02/2004 LUMBAR LAMINECTOMY 08/03/2010 - 08/02/2011 TOTAL HIP ARTHROPLASTY 10/14/[address] Godwin at [facility] HEMORRHOID SURGERY 08/03/2012 - 08/02/2013 REVISION TOTAL HIP ARTHROPLASTY 04/15/2016 failed poly liner with hip subluxation of the right hip. COLONOSCOPY 07/23/2015 TOTAL HIP ARTHROPLASTY 01/24/[address] Godwin at [facility] BREAST BIOPSY 08/03/2016 - 08/02/2017 Left benign BREAST BIOPSY 09/02/2018 Right FOOT SURGERY 01/31/2018 - 03/02/2018 Right for degenerative changes Medical History Medical History Date Comments Hypertension Depression Psoriasis Parkinson's disease (HCC) f/by W [facility] Psychophysiological insomnia Breast cancer (HCC) 09/02/2018 DCIS Thyroid disease Family History Medical History Relation Name Comments Diabetes Brother Myasthenia gravis Brother Hypertension Father Cancer Maternal Grandfather Drug abuse Maternal Grandfather Throat cancer Maternal Grandfather Hypertension Mother Glaucoma Neg Hx Macular degeneration Neg Hx Retinal detachment Neg Hx Thyroid disease Neg Hx Relation Name Status Comments Brother Father Maternal Grandfather Mother Social History Tobacco Use Types Packs/Day Years Used Date Smoking Tobacco: Never Passive Smoke Exposure: Never Smokeless Tobacco: Never Tobacco Cessation:Counseling Given: Not Answered Alcohol Use Standard Drinks/Week Comments No 0 (1 standard drink = 0.6 oz pur e alcohol) AUDIT-C Answer Date Recorded Q1: How often do you have a drink containing alc ohol? Never 12/21/2020 Average Number of Drinks Not on file 021 Frequency of Binge Drinking Not on file 12/02 Comments No Sex and Gender Information Value Date Recorded Sex Assigned at Not on file Legal Sex Female 1:42 PM CDT Gender Identity Female 07/23/2021 10:03 AM FIRE DISPATCHER Sexual Orientation Straight 07/23/2021 10 :03 AM FIRE DISPATCHER Obstetrics History Para Term AB IAB SAB Ectopic Multiple Livin g Live Births 6 2 Date Outcome GA Total Labor Labor/2nd/3rd Weight Sex Type Anes PTL Rand A1 A5 Name Clin Para Para Comments Patient had a NILES/LSO at 34 years old. She denies ever having menopausal symptoms. She used clomid twice in her life. She denies using HRT. Last Filed Vital Signs Vital Sign Reading Time Taken Comments Blood Pressure 172/109 07/11/2024 11:07 AM FIRE DISPATCHER Pulse 91 07/11/2024 11:07 AM FIRE DISPATCHER Temperature 36.3 ??C (97.4 ??F) 01/02/2023 9:52 AM CD T Respiratory Rate 18 04/08/2022 3:34 PM CDT Oxygen Saturation 98% 04/08/2022 3:34 PM CDT Inhaled Oxygen Concentration - - Weight 76.7 kg (169 lb 3.2 oz) 07/11/2024 11:07 AM FIRE DISPATCHER Height 170.2 cm (5' 7 ) 07/11/2024 11:07 AM FIRE DISPATCHER Body Mass Index 26.5 07/11/2024 11:07 AM FIRE DISPATCHER Plan of Treatment Health Maintenance Due Date Last Done Comments Colon Cancer Screening-Colonoscopy 1960 Hepatitis C Screening 1962 Hepatitis B Screening 1980 Regular Well Visit/Exam 18-64 1980 Depression Screening 01/03/2024 01/02/2023 Influenza Vaccine (#1) 2024 8, 05/14/2017, 05/14/2017, Additional history exists Breast Cancer Screening-Mammogram 07/14/2024 07/14/2023, 06/17/2022, 05/31/2021, Additional history exists DTaP/Tdap/Td Vaccine (3 - Td or Tdap) 07/16/2028 07/16/2018, 03/20/2017 Pneumococcal vaccine <65 Aged Out 06/15/2015, 04/2015 No longer eligible based on patient's age to complete this topic Zoster Vaccine Completed 10/22/2018, 07/16/2018 Medical Devices Implanted Type Area Correspondence School Instructor Device Identifier Shelf Expiration Date Model / Serial / Lot Shell Ringlc+ Pc Left: Hip [employer] 09/30/2022 [id number] / / [id number] Description:Implanted Type A meghan [employer]ence [employer] Instructor Device Identifier Expiration Date Model / Serial / Lot Shell Ringlc+ Pc 54mm [id number] - [id number] Implanted: Qty: 1 on 10/14/2012 Hip Left: Hip [employer] ?? 09/30/2022 [id number] / / [id number] Liner Epoly Mrom Left: Hip Description:Liner Epoly Mrom 40mm Sz24 [id number] - [id number] Implanted: Qty: 1 on 10/14/2012 Hip Left: Hip [employer] ?? 06/02/2015 [id number] / Head Fem Biolox Left: Hip Description:Head Fem Biolox Option 40mm 650-1058 - [id number] Implanted: Qty: 1 on 10/14/2012 by Supa Godwin MD Hip Left: Hip [employer] ?? 01/30/2022 650-1058 / Stem Fem Tprlc Red/Dis Left: Hip Description:Stem Fem Tprlc R ed/Dis [id number] - [id number] Implanted: Qty: 1 on 10/14/2012 Hip Left: Hip [employer] ?? 08/02/2022 [id number] / / Procedures Procedure Name Priority Date/Time Associated Diagnosis Comments SCREENING MAMMOGRAM BILATERAL W JEZ Schedule Routine, Read Routine (OP Routine) 07/14/2023 11:37 AM FIRE DISPATCHER Encounter for follow-up surveillance of breast cancer from Last 3 Months or Most Recently Relevant to Health Maintenance Results * Screening Mammogram Bilateral W Jez (07/14/2023 11:37 AM FIRE DISPATCHER) Anatomical Region Laterality Modality Breast Bilateral Mammography Narrative 07/15/2023 9:31 AM FIRE DISPATCHER Mammogram Technique: Bilateral Digital Breast Tomosynthesis, Bilateral C-view 2D Screening mammogram. ??Views obtained: ??bilateral craniocaudal and bilateral mediolateral oblique. ??Computer Aided Detection was performed. Mammogram Findings: The present examination has been compared to prior imaging studies performed at [facility] on 05/22/2020, 05/31/2021 and 06/17/2022. There are scattered areas of fibroglandular density. There are post breast conservation therapy changes in the right breast. There is no suspicious abnormality in the left breast. Impression: Post breast conservation therapy changes in the right breast are benign. Annual screening mammography is recommended. OVERALL FINAL ASSESSMENT: BI-RADS CATEGORY 2: ??Benign. Procedure Note Cheyenne Atkinson MD - 07/15/2023 Mammogram Technique: Bilateral Digital Breast Tomosynthesis, Bilateral C-view 2D Screening mammogram. Views obtained: bilateral craniocaudal and bilateral mediolateral oblique. Computer Aided Detection was performed. Mammogram Findings: The present examination has been compared to prior imaging studies performed at [facility] on 05/22/2020, 05/31/2021 and 06/17/2022. There are scattered areas of fibroglandular density. There are post breast conservation therapy changes in the right breast. There is no suspicious abnormality in the left breast. Impression: Post breast conservation therapy changes in the right breast are benign. Annual screening mammography is recommended. OVERALL FINAL ASSESSMENT: BI-RADS CATEGORY 2: Benign. Lucy Bonner NP IMG MAMMO PROCEDURES Fin al Result from Last 3 Months or Most Recently Relevant to Health Maintenance Insurance [employer] [facility] [id number] [facility] [id number] Care Teams Rental Clerk Relationship Specialty Start Date End Date Swethababitamargo Leonarda HernadezDO [address] [place] [address] PCP - General Family Medicine 10/29/22 Darrel Medina III, OD [address] [place] [address] Consulting Physician Optometry 10/29/22 Shamir Redd MD [address] [place] [address] Consulting Physician Neurology 10/29/22
--- OUTSIDE RECORDS SUMMARY | 2024-08-30 12:56 | XMS_ITS | Referral Summary ---
Author Organization [facility] Address [address] [place] [address] Phone Care Team Providers Care Pepper Cutter Name Role Phone Adam BRISCOE OD, Lewis Francis Unavailable [phone] Shamir Redd MD Unavailable [phone] Leonarda Olivares DO Primary Care Provider [phone] Encounters Date Type Department Care Team Description 07/11/2024 11:00 AM WINDOW CASER Office Visit [facility] Movement Disorders [address] [place] [phone] Jessica Smith NP Parkinson's disease with dyskinesia and fluctuating manifestations (HCC) (Primary Dx); Levodopa-induced dyskinesia; Anxiety and depression; Psychophysiological insomnia; Chronic fatigue 07/04/[address] [facility] Surgery [address] [facility] [address] [place] [address] Montserrat Fajardo NP 06/08/[address] [facility] Movement Disorders [address] [place] [phone] Stella Moreno RN 06/07/[address] [facility] Movement Disorders [address] [place] [phone] Sabrina Obrien, [place] from Last 3 Months Allergies Active Allergy Reactions Criticality Noted Date [...] from 09/27/2018:Stage IA(pT1a, pN0(sn), cM0, G2, ER+, CT+, HER2-) - Signed by Kasi Lobato MD on 10/14/2018 Clinical: Unsigned Abnormal mammogram 08/24/2018 Parkinson disease 03/31/2018 Assessment & Plan (07/11/2024 12:38 PM WINDOW CASER): She has stage 2, tremor-predominant PD with [...] stiffness but she takes it rarely since long term. She has fatigue but avoids caffeine due [...] symptoms and this did improve with semi- long term She tried escitalopram and noted nausea so stopped after a week. At this point, she isn't interested in trying a med for anxiety but I would have a low threshold to treat in the future. Recommendations: -Same carbi/levo IR and CR. - Could consider Rytary if insurance would cover. - Could consider entacapone. - Same PRN baclofen. - Continue [employer] boxing and regular exercise - Same trazodone [...] symptoms and this did improve with semi- long term She tried escitalopram and noted nausea so [...] she is hopeful this will improve with long term She tried escitalopram and noted nausea so [...] she is hopeful this will improve with long term She tried escitalopram and noted nausea so [...] future. Assessment & Plan (09/02/2022 3:01 PM WINDOW CASER): She has stage 2, tremor-predominant PD with [...] study Assessment & Plan (07/23/2021 3:48 PM WINDOW CASER): She has stage 2 PD that tremor [...] her symptoms. If possible for her to workers compensation administrator part of the time, that would be [...] 4 hours. If possible for her to workers compensation administrator part of the time, that would be [...] her symptoms. If possible for her to workers compensation administrator part of the time, that would be [...] exercising. Assessment & Plan (06/20/2020 2:40 PM WINDOW CASER): She has stage 2 PD that tremor [...] Boxing. Assessment & Plan (10/03/2019 10:55 AM WINDOW CASER): She has very mild stage 2 PD [...] RSB. Assessment & Plan (09/06/2018 11:43 AM WINDOW CASER): She has very mild stage 2 PD [...] (BMI 35.0-39. 9) with comorbidity 03/20/2017 05/08/2023 Immunizations Name Administration Dates Next Due Influenza, Trivalent, IM (MDV) 8,05/14/2017,12/10/2014, 3,05/16/2012 Influenza, Unspecified 05/14/2017,2014,05/03/2013, 2,05/16/2012 Pneumococcal Conjugate PCV 13 02/08/2015 Pneumococcal Polysaccharide PPV23 06/15/2015 Tdap 07/16/2018,03/20/2017 ZOSTER Recombinant 10/22/2018,07/16/2018 Social History Tobacco Use Types Packs/Day Years [...] CDT Gender Identity Female 07/23/2021 10:03 AM WINDOW CASER Sexual Orientation Straight 07/23/2021 10 :03 AM WINDOW CASER Last Filed Vital Signs Vital Sign Reading Time Taken Comments Blood Pressure 172/109 07/11/2024 11:07 AM WINDOW CASER Pulse 91 07/11/2024 11:07 AM WINDOW CASER Temperature 36.3 ??C (97.4 ??F) 01/02/2023 9:52 AM CD T Respiratory Rate 18 04/08/2022 3:34 PM CDT Oxygen Saturation 98% 04/08/2022 3:34 PM CDT Inhaled Oxygen Concentration - - Weight 76.7 kg (169 lb 3.2 oz) 07/11/2024 11:07 AM WINDOW CASER Height 170.2 cm (5' 7 ) 07/11/2024 11:07 AM WINDOW CASER Body Mass Index 26.5 07/11/2024 11:07 AM WINDOW CASER Plan of Treatment Not on file Medical Devices Implanted Type Area Biomedical Repair Technician Device Identifier Shelf Expiration Date Model / Serial / Lot Shell Ringlc+ Pc Left: Hip [employer] 09/30/2022 [id number] / / [id number] Description:Implanted Type A meghan Biomedical Repair Technician Device Identifier Expiration Date Model / Serial / Lot Shell Ringlc+ Pc 54mm [id number] - [id number] Implanted: Qty: 1 on 10/14/2012 Hip Left: Hip [employer] ?? 09/30/2022 [id number] / / [id number] Liner Epoly Mrom Left: Hip Description:Liner Epoly Mrom 40mm Sz24 [id number] - [id number] Implanted: Qty: 1 on 10/14/2012 Hip Left: Hip [employer] ?? 06/02/2015 [id number] / Head Fem Biolox Left: Hip Description:Head Fem Biolox Option 40mm [id number] - [id number] Implanted: Qty: 1 on 10/14/2012 by Supa Godwin MD Hip Left: Hip [employer] ?? 01/30/2022 [id number] / Stem Fem Tprlc Red/Dis Left: Hip Description:Stem Fem Tprlc R ed/Dis [id number] - [id number] Implanted: Qty: 1 on 10/14/2012 Hip Left: Hip [employer] ?? 08/02/2022 [id number] / / Procedures Procedure Name Priority Date/Time Associated Diagnosis Comments SCREENING MAMMOGRAM BILATERAL W JEZ Schedule Routine, Read Routine (OP Routine) 07/14/2023 11:37 AM WINDOW CASER Encounter for follow-up surveillance of breast cancer from Last 3 Months or Most Recently Relevant to Health Maintenance Results * Screening Mammogram Bilateral W Jez (07/14/2023 11:37 AM WINDOW CASER) Anatomical Region Laterality Modality Breast Bilateral Mammography Narrative 07/15/2023 9:31 AM WINDOW CASER Mammogram Technique: Bilateral Digital Breast Tomosynthesis, Bilateral C-view 2D Screening mammogram. ??Views obtained: ??bilateral craniocaudal and bilateral mediolateral oblique. ??Computer Aided Detection was performed. Mammogram Findings: The present examination has been compared to prior imaging studies performed at [facility] on 05/22/2020, 05/31/2021 and 06/17/2022. There are [...] compared to prior imaging studies performed at [facility] on 05/22/2020, 05/31/2021 and 06/17/2022. There are [...] Most Recently Relevant to Health Maintenance Insurance [employer] [facility] [employer] [facility] [id number] [facility] [id number] Care Teams Pepper Cutter Relationship Specialty Start Date End Date Leonarda Olivares DO [address] [place] [address] PCP - General Family Medicine 10/29/22 Darrel Medina III, OD [address] [place] [address] Consulting Physician Optometry 10/29/22 Shamir eRdd MD [address] [place] [address] Consulting Physician Neurology 10/29/22
--- OUTSIDE RECORDS SUMMARY | 2024-08-30 12:57 | XMS_ITS | Clinical Summary ---
Author Organization [facility] Address [address] [place] [address]. [place], [place] [id number] [place] [address] Care Team Providers Care Cvt Tech Name Role Phone Kd Abraham MD Primary Care Provider [phone] Allergies Active Allergy Reactions Criticality Noted Date Comments Amoxicillin-Pot Clavulanate Nausea and Vomiting 01/05/2017 Nausea and nightmares Tape Other (see comment) 10/01/2012 Redness with bandaids Medications meloxicam 15 MG tablet Take 15 mg by mouth daily. Active aspirin EC (ASPIRIN EC) 81 MG tablet Take 81 mg by mouth daily. Active carbidopa-levod opa CR 50-200 MG tablet 11/26/2019 Active Cholecalciferol (VITAMIN D3) 25 MCG (1000 UT) Cap Take by mouth daily. Active lisinopril 40 MG tablet 11/26/2019 Active traZODone 100 MG tablet 10/20/2019 Active carbidopa-levod opa 25-100 MG tablet Take 1 tablet by mouth 3 (three) times daily. Active pravastatin 40 MG tablet Take 40 mg by mouth nightly at bedtime. Active hydroCHLOROthia zide 25 MG tablet Take 25 mg by mouth every morning. Active fish oil 1000 MG Cap capsule Take 1,000 mg by mouth 2 (two) times daily. Active ALPRAZolam 0.25 MG tablet Take 0.25 mg by mouth daily as needed. 07/16/2015 Active amoxicillin 500 MG capsule 01/13/2019 Active amoxicillin-cla vulanate 875-125 MG tablet 04/12/2019 Active cefUROXime 250 MG tablet Take 250 mg by mouth 2 (two) times daily. 05/28/2017 Active clotrimazole-be tamethasone cream 11/02/2019 Active fluticasone propionate 50 MCG/ACT nasal spray 2 sprays by Nasal route daily. 03/20/2017 Active levothyroxine 112 MCG tablet 11/14/2019 Acti ve levothyroxine 125 MCG tablet TAKE ONE TABLET BY MOUTH IN THE MORNING 03/23/2017 Active mirtazapine 30 MG tablet Take 30 mg by mouth. 05/20/2017 Active polyethylene glycol packet Take 17 g by mouth daily. 03/20/2017 Active Active Problems Problem Noted Date Diagnosed Date Laceration of left thumb wit hout foreign body without damage to nail, initial encounter 03/06/2020 Severe obesity (BMI 35.0-39. 9) with comorbidity ([facility]) 03/20/2017 Psychophysiological insomnia 01/02/2017 Abnormal mammogram 09/04/2016 Allergic rhinitis 03/13/2016 Hypothyroidism 03/13/2016 Parkinson disease ([facility]) 02/18/2016 Primary osteoarthritis of both hips 06/15/2015 Hip joint replacement by other means 02/21/2015 Psoriatic arthritis ([facility]) 02/08/2015 Overview (01/09/2020): Diagnosed August [address] Daniel[address] Psoriasis, diffuse arthralgias, and sausage digits. On immunosuppressants. Migraines 10/15/2012 Anxiety and depression 10/14/2012 HLD (hyperlipidemia) 10/14/2012 HTN (hypertension) 10/14/2012 Immunizations Name Administration Dates Next Due Influenza (Generic) 05/14/2017,12/10/2014,2012,05/16/2012 Pneumococcal (Pneumovax 23) 06/15/2015 Pneumococcal (Prevnar 13) 02/08/2015 Tdap (Generic) 03/20/2017 Social History Tobacco Use Types Packs/Day Years Used Date Smoking Tobacco: Never Smokeless Tobacco: Never Alcohol Use Standard Drinks/Week Comments Never 0 (1 standard drink = 0.6 oz pur e alcohol) AUDIT-C Answer Date Recorded Frequency of Alcohol Consumption Never 01/06/2020 Average Number of Drinks Not on file 020 Frequency of Binge Drinking Not on file 12/2019 Comments No Sex and Gender Information Value Date Recorded Sex Assigned at Not on file Legal Sex Female 6:24 PM CDT Gender Identity Not on file Sexual Orientation Not on file Last Filed Vital Signs Vital Sign Reading Time Taken Comments Blood Pressure 127/89 03/06/2020 12:19 PM CDT Pulse 79 03/06/2020 12:19 PM CDT Temperature 35.7 ??C (96.2 ??F) 03/06/2020 12:19 PM C DT Respiratory Rate 18 03/06/2020 12:19 PM CDT Oxygen Saturation 100% 03/06/2020 12:19 PM CDT Inhaled Oxygen Concentration - - Weight 102.1 kg (225 lb) 03/06/2020 12:19 PM CDT Height 170.2 cm (5' 7 ) 03/06/2020 12:19 PM CDT Body Mass Index 35.24 03/06/2020 12:19 PM CDT Plan of Treatment Health Maintenance Due Date Last Done Comments Colorectal Cancer Screening Colonoscopy (10 Years) 1962 Annual Physical 1965 Hepatitis C 1980 Mammogram Screening 2002 Zoster Vaccines (1 of 2) 2012 COVID-19 Vaccine (2023- season) 2024 Influenza Adult (#1) 2024 05/14/2017, 12/10/2014, 05/03/2013, Additional history exists DTaP, Tdap and Td Vaccines (2 - Td or Tdap) 03/20/2027 03/20/2017 RSV Immunization or 60+ Years (1 - 1-dose 75+ series) 2037 Pneumococcal Vaccine: Pediatrics (0 to 5 Years) and At-Risk Patients (6 to 64 Years) Aged Out 06/15/2015, 02/08/2015 No longer eligibl e based on patient's age to complete this topic Meningococcal B Vaccine Aged Out No l onger eligible based on patient's age to complete this topic Meningococcal Vaccine Aged Out No shaunna pierce eligible based on patient's age to complete this topic RSV Immunizations Under 20 Months Aged Out No longer eligible based on patient's age to complete this topic Insurance [employer] [facility] Care Teams Cvt Tech Relationship Specialty Start Date End Date Kd Abraham MD [address] [place] [address] PCP - General INTERNAL MEDICINE 01/06/20
[2024-08-30 13:38] LABS: Basophils Absolute Auto 0.1 K/mm3 (0.0-0.1); Basophils Percent Auto 0.7 % (0.2-1.2); Eosinophils Absolute Auto 0.2 K/mm3 (0-0.3); Eosinophils Percent Auto 3.1 % (0-4.4); Hematocrit 41.4 % (37.0-47.0); Hemoglobin 13.5 g/dL (12.0-15.0); Immature Granulocyte Absolute 0.02 K/mm3 (0.00-0.031); Immature Granulocyte Percent A 0.3 % (0-0.5); Lymphocytes Absolute Auto 1.74 K/mm3 (0.9-3.2); Lymphocytes Percent Auto 24.8 % (18.3-44.2); Mean Corpuscular HGB Conc 32.6 g/dl (32-36); Mean Corpuscular Hemoglobin 29.4 pg (26-34); Mean Corpuscular Volume 90.2 fl (80-100); Mean Platelet Volume 8.8 fl (7.4-10.4); Monocytes Absolute Auto 0.7 K/mm3 (0.1-0.6); Monocytes Percent Auto 9.7 % (2.6-8.5); Neutrophils Absolute Auto 4.3 K/mm3 (1.3-6.7); Neutrophils Percent Auto 61.4 % (45.5-73.1); Platelet Count Result 335 k/mm3 (150-375); Red Blood Count 4.59 M/mm3 (4.2-5.4); Red Cell Distribution Width 13.4 % (11.5-14.5)
[2024-08-30 13:47] LABS: Add Urine Microscopic? NO; Appearance Urine Clear (Clear); Bilirubin Urine Negative (Negative); Blood Urine Negative (Negative); Color Urine Yellow (Yellow); Glucose Urine UA Negative (Negative); Ketones Urine Trace mg/dL (Negative); Leukocyte Esterase Ur Negative LEU/UL (Negative); Nitrate Urine Negative (Negative); Protein Urine Negative (Negative); Prothrombin Time 13.9 Seconds (11.1-14.7); Urobilinogen Urine 0.2 mg/dL (<2.0); pH Urine 5.5 (5.0-9.0)
[2024-08-30 13:48] LABS: Partial Thromboplastin Time 29.5 Seconds (22.3-36.8)
[2024-08-30 14:06] LABS: Albumin Level 4.2 g/dL (3.5-5.1); Anion Gap 7 mmol/L (4-12); Blood Urea Nitrogen 16 mg/dL (7-17); Calcium 9.1 mg/dL (8.4-10.2); Carbon Dioxide 30 mmol/L (22-30); Chloride 102 mmol/L (98-107); Estimated Glomerular Filt Rate > 60; Glucose 85 mg/dL (65-110); Sodium 139 mmol/L (137-145)
[2024-08-30 14:38] LABS: Urine Cotinine NEGATIVE
[2024-08-30 15:01] LABS: MRSA (PCR) NOT DETECTED (NOT DETECTE)
== END 2024-08-30 11:57 | disposition home or self-care (01) ==
PROVIDERS: PCP Family Medicine; Visit Provider Orthopaedic Surgery
DX: M17.12 Unilateral primary osteoarthritis, left knee (principal); Z01.818 Encounter for other preprocedural examination
CPT/HCPCS: 80048; 80307; 81003; 82040; 85025; 85610; 85730; 87641

== ENCOUNTER 2024-09-13 00:38 | Day surgery (SDC) | payer OTHER, SELFPAY ==
[2024-08-30 12:16] VITALS: BP 153/90; PULSE 79; RESP 16; TEMP 36.7; O2SAT 100; BMI 28.5
--- NOTE | 2024-08-30 12:44 | PC.NURSE ---
Report to the Outpatient Waiting Room, entrance under the green pavilion located off [facility], at time ___1000am____ on date ___09/13/24____. Planned Procedure Time: _1200pm .? Time changes happen often and if your time is changed the preop area will call you the afternoon before. - You and your visitor will be asked to self-screen and do not enter if you have any COVID symptoms. Please call surgeon if you need to reschedule. - A mask is optional within the hospital at this time. Patients may have clear liquids (water, carbonated beverages, clear teas, apple juice) until 3 hours prior to surgery with a maximum of 20 ounces. - No food from midnight until time of surgery and no smoking. This includes no chewing gum, candy or mints.(0900am) - Take only the following medications with a SIP of water on the morning of surgery: _Levothyroxine, Carbidopa/Sinemet DO NOT STOP ANY OF YOUR OTHER PRESCRIPTION MEDICATIONS PRIOR TO SURGERY EXCEPT THE FOLLOWING Medications to discontinue per physician ____HOLD all NSAIDS/Meloxicam/Aspirin for [address] Silverio Date to take last dose____09/05/24 Hold all vitamins and supplements for 3 days per anesthesiologist.Date to take last dose 09/09/24. Please no make-up, nail kyrgyz, hairspray, perfume, deodorant, or body powder the day of surgery.? No jewelry (including any body piercings) or valuables the day of surgery, leave them at home.? Please take a shower or bath the night before, or the morning of, surgery with an antibacterial soap.? Wear comfortable, loose fitting clothing.? HIBICLEANSE prep per Dr Silverio - Jewelry must be removed prior to entering the operating room.? Rings and piercings that are not removed may be cut off. - The hospital will not accept responsibility for valuables.? - Please leave all valuables, including medications, at home the day of surgery. If you are going home after surgery, a licensed line haul driver must drive you home.? - NO public transportation without another adult if you receive anesthesia. - We recommend that an adult stay with you for 24 hours following discharge. - We also recommend that you do not drive, make important decision, drink alcoholic beverages, or take any drugs that were not prescribed by your health care provider for at least 24 hours after your discharge time. Follow any additional instructions given to you from your surgeon. Telephone instructions given to __Patient and asked if any additional questions and then verbalized understanding. Patient advised to call surgeon office or pre surgery nurse liaison [phone] if any additional questions.
[2024-09-13] VITALS (12 sets, daily range): BP systolic 105–164; BP diastolic 60–86; PULSE 72–92; RESP 12–18; TEMP 35.9–37.3; O2SAT 94–100; BMI 27.8
--- NOTE | ~2024-09-13 | XR_ITS ---
EXAMINATION: [id number] DATE: 09/13/2024 16:07 INDICATION: Left knee arthroplasty. Postop. TECHNIQUE: 2 views of left knee were obtained. COMPARISON: None. FINDINGS: There is a total left knee arthroplasty without patellar resurfacing in near-anatomic align ment. No fracture. There is gas in the knee joint and soft tissues, consistent with recent surgery. IMPRESSION: 1. Total left knee arthroplasty in near-anatomic alignment. Reviewed, dictated and finalized at location A. LOPMENT TEAM LEAD
--- OUTSIDE RECORDS SUMMARY | 2024-09-13 00:43 | XMS_ITS | Encounter Summary ---
Author Organization [facility] Address [facility] [place] [address] Care Team Providers Care Sales Development Director Name Role Phone Mario Albarado MD Primary Care Provider [phone] Kd Abraham MD Primary Care Provider [phone] Encounter Details Date Type Department Care Team (Late st Contact Info) Description 12/31/2012 Abstract [facility] CONVERSION [address] [place] [address] , Generic Conversion, Social History Tobacco Use Types Packs/Day Years [...] on filedocumented in this encounter Care Teams Sales Development Director Relationship Specialty Start Date End Date Mario Albarado MD PCP - General 06/24/11 01/05/20 Kd Abraham MD [address] [place] [address] PCP - General INTERNAL MEDICINE 01/06/20 documented as of this encounter
--- OUTSIDE RECORDS SUMMARY | 2024-09-13 00:43 | XMS_ITS | Referral Summary ---
Author Organization [facility] Address [address] [place] [address] Phone Care Team Providers Care Manager Car Name Role Phone Adam BRISCOE OD, Darrel Morton Unavailable [phone] Shamir Redd MD Unavailable [phone] Leonarda Olivares DO Primary Care Provider [phone] Encounters Date Type Department Care Team Description 09/08/2024 8:41 AM METALSMITH HELPER - 09/08/2024 11:59 PM METALSMITH HELPER Hospital Encounter [facility] - Breast Imaging [address] [place] [phone] Abnormality of right breast on screening mammography Discharge Disposition: Discharge to home or self care 09/01/2024 Telephone [facility] Surgery [address] [place] [phone] Josette Mcmahon CMA 08/31/2024 10:05 AM METALSMITH HELPER - 08/31/2024 11:59 PM METALSMITH HELPER Hospital Encounter [facility] - Breast Imaging [address] [place] [address] 8 [place] [address] Encounter for follow-up surveillance of breast cancer Discharge Disposition: Discharge to home or self care 08/31/2024 10:00 AM METALSMITH HELPER Office Visit [facility] Surgery [address] [place] [phone] Montserrat Fajardo NP Malignant neoplasm of 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, estrogen receptor positive (HCC) (Primary Dx); History of breast cancer; History of partial mastectomy of right breast; Encounter for screening mammogram for malignant neoplasm of breast 07/11/2024 11:00 AM METALSMITH HELPER Office Visit [facility] Movement Disorders [address] [place] [address] Jessica Smith NP Parkinson's disease with dyskinesia and fluctuating manifestations (HCC) (Primary Dx); Levodopa-induced dyskinesia; Anxiety and depression; Psychophysiological insomnia; Chronic fatigue 07/04/2024 Telephone [facility] Surgery [address] [facility] Floor 8 [place] [address] Montserrat Fajardo NP from Last 3 Months Allergies Active Allergy Reactions Criticality Noted Date Comments Adhesive Rash,Other (See comments) Medium 10/01/2012 Paper tape (longer tapes are on but longer its on more chance of rash) Redness with bandaids Medications aspirin 81 mg tablet Take 1 tablet (81 mg total) by mouth nightly 7 Active lisinopril (PRINIVIL,ZESTR IL) 40 mg tablet Take 1 tablet (40 mg total) by mouth every morning 7 Active meloxicam (MOBIC) 15 mg tablet Take 1 tablet (15 mg total) by mouth every morning 7 Active polyethylene glycol (MIRALAX) 17 gram packet Take 1 packet (17 g total) by mouth Takes every three days as needed. 5 8 Active pravastatin (PRAVACHOL) 40 mg tablet Take 1 tablet (40 mg total) by mouth nightly 7 Active cholecalciferol (VITAMIN D-3) 1,000 unit tablet Take 1 tablet (1,000 Units total) by mouth nightly 7 Active multivitamin tablet Take 1 tablet by mouth daily Active nystatin cream as needed 1 Active levothyroxine (SYNTHROID) 100 mcg tablet Take 1 tablet (100 mcg total) by mouth daily 2 Active levothyroxine (SYNTHROID) 88 mcg tablet 3 Active traZODone (DESYREL) 100 mg tablet Take 1.5 tabs at bedtime for one week and may increase to 2 tabs at bedtime. 180 tablet 3 3 Active leg brace misc Custom orthotic for the left lower leg/foot in patient with Parkinson Disease and dystonia. 1 each 4 Active carbidopa-levod opa (SINEMET) 25-100 mg per tabletIndicatio ns:Parkinsonism Take at 3 tabs up to 6 times daily (7:30am, 10:30am, 1:30pm, 4:30pm, 8:30pm, one extra dose as needed for staying up late) and 2.5 tab at bedtime. May take an extra tablet as needed for breakthrough tremor. 1845 tablet 3 4 Active baclofen (LIORESAL) 10 mg tablet TAKE 1 TABLET BY MOUTH UP TO TWICE DAILY FOR CRAMPING PAIN. 180 tablet 1 4 Active gabapentin (NEURONTIN) 300 mg capsule Take 1 capsule (300 mg total) by mouth nightly Active carbidopa-levod opa CR (SINEMET CR) 50-200 mg per CR tabletIndicatio ns:Parkinson disease (HCC) TAKE 1 TABLET BY MOUTH EVERY DAY AT NIGHT 90 tablet 3 5 Active Active Problems Problem Noted Date Diagnosed [...] from 09/27/2018:Stage IA(pT1a, pN0(sn), cM0, G2, ER+, SC+, HER2-) - Signed by Kasi Lobato MD on 10/14/2018 Clinical: Unsigned Abnormal mammogram 08/24/2018 Parkinson disease 03/31/2018 Assessment & Plan (07/11/2024 12:38 PM METALSMITH HELPER): She has stage 2, tremor-predominant PD [...] stiffness but she takes it rarely since snf. She has fatigue but avoids caffeine due [...] symptoms and this did improve with semi- snf She tried escitalopram and noted nausea so [...] symptoms and this did improve with semi- snf She tried escitalopram and noted nausea so [...] she is hopeful this will improve with snf She tried escitalopram and noted nausea so [...] she is hopeful this will improve with snf She tried escitalopram and noted nausea so [...] future. Assessment & Plan (09/02/2022 3:01 PM METALSMITH HELPER): She has stage 2, tremor-predominant PD [...] study Assessment & Plan (07/23/2021 3:48 PM METALSMITH HELPER): She has stage 2 PD that [...] her symptoms. 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 Assessment & Plan (06/20/2020 2:40 PM METALSMITH HELPER): She has stage 2 PD that [...] Boxing. Assessment & Plan (10/03/2019 10:55 AM METALSMITH HELPER): She has very mild stage 2 [...] RSB. Assessment & Plan (09/06/2018 11:43 AM METALSMITH HELPER): She has very mild stage 2 [...] CDT Gender Identity Female 07/23/2021 10:03 AM METALSMITH HELPER Sexual Orientation Straight 07/23/2021 10 :03 AM METALSMITH HELPER Last Filed Vital Signs Vital Sign Reading Time Taken Comments Blood Pressure 172/109 07/11/2024 11:07 AM METALSMITH HELPER Pulse 91 07/11/2024 11:07 AM METALSMITH HELPER Temperature 36.3 C (97.4 F) 01/02/2023 9:52 AM CDT Respiratory Rate 18 04/08/2022 3:34 PM CDT Oxygen Saturation 98% 04/08/2022 3:34 PM CDT Inhaled Oxygen Concentration - - Weight 78.7 kg (173 lb 9.6 oz) 08/31/2024 10:16 AM METALSMITH HELPER Height 170.2 cm (5' 7 ) 08/31/2024 10:16 AM METALSMITH HELPER Body Mass Index 27.19 08/31/2024 10:16 AM METALSMITH HELPER Plan of Treatment Not on file Medical Devices Implanted Type Area Radio Repairer Domestic Device Identifier Shelf Expiration Date Model / Serial / Lot Shell Ringlc+ Pc Left: Hip [employer] 09/30/2022 [id number] / / [id number] Description:Implanted Type A meghan Radio Repairer Domestic Device Identifier Expiration Date Model / Serial / Lot Shell Ringlc+ Pc 54mm [id number] - [id number] Implanted: Qty: 1 on 10/14/2012 Hip Left: Hip [employer] 09/30/2022 [id number] / / [id number] Liner Epoly Mrom Left: Hip Description:Liner Epoly Mrom 40mm Sz24 [id number] - [id number] Implanted: Qty: 1 on 10/14/2012 Hip Left: Hip [employer] 06/02/2015 [id number] / Head Fem Biolox Left: Hip Description:Head Fem Biolox Option 40mm 650-1058 - [id number] Implanted: Qty: 1 on 10/14/2012 by Supa Godwin MD Hip Left: Hip [employer] 01/30/2022 [id number] / Stem Fem Tprlc Red/Dis Left: Hip Description:Stem Fem Tprlc R ed/Dis [id number] - [id number] Implanted: Qty: 1 on 10/14/2012 Hip Left: Hip [employer] 08/02/2022 [id number] / / Procedures Procedure Name Priority Date/Time Associated Diagnosis Comments DIAGNOSTIC MAMMOGRAM RIGHT W JEZ Schedule Routine, Read Routine (OP Routine) 09/08/2024 9:43 AM METALSMITH HELPER Abnormality of right breast on screening mammography SCREENING MAMMOGRAM BILATERAL W JEZ Schedule Routine, Read Routine (OP Routine) 08/31/2024 10:46 AM METALSMITH HELPER Encounter for follow-up surveillance of breast cancer from Last 3 Months Results * Diagnostic Mammogram Right W Jez (09/08/2024 9:43 AM METALSMITH HELPER) Anatomical Region Laterality Modality Breast Right Mammography 09/08/2024 9:48 AM METALSMITH HELPER Impressions 09/08/2024 9:57 AM METALSMITH HELPER Questioned RIGHT breast asymmetry has the appearance of benign fibroglandular tissue on diagnostic mammogram. OVERALL FINAL ASSESSMENT: BI-RADS Category 2: Benign. RECOMMENDATION: Annual screening mammography is recommended. Dictated by: Shamir Mena MD The radiology attending physician has personally reviewed this study, and had reviewed and/or edited this written report and agrees with it. Electronically signed by: Aundrea Irwin M.D. Narrative 09/08/2024 9:57 AM METALSMITH HELPER EXAMINATION: RIGHT UNILATERAL DIGITAL DIAGNOSTIC MAMMOGRAM AND DIGITAL BREAST TOMOSYNTHESIS HISTORY: 64-year-old woman recalled for RIGHT breast asymmetry on craniocaudal view. Prior breast conservation therapy for invasive ductal carcinoma in 2019. COMPARISON: Multiple priors, most recently screening mammogram 08/31/2024 TECHNIQUE: Full field digital mammographic views of the RIGHT breast were performed, including computer aided detection (CAD) and digital breast tomosynthesis (DBT). BREAST PARENCHYMAL COMPOSITION: There are scattered areas of fibroglandular density. MAMMOGRAM FINDINGS: The questioned asymmetry in the middle central RIGHT breast on craniocaudal view appears less conspicuous on repeat craniocaudal view and has the appearance of prominent but otherwise normal fibroglandular tissue on spot compression view. Breast conservation therapy changes are noted in the RIGHT breast. Procedure Note Aundrea Irwin MD - 09/08/2024 EXAMINATION: RIGHT UNILATERAL DIGITAL DIAGNOSTIC MAMMOGRAM AND DIGITAL BREAST TOMOSYNTHESIS HISTORY: 64-year-old woman recalled for RIGHT breast asymmetry on craniocaudal view. Prior breast conservation therapy for invasive ductal carcinoma in 2019. COMPARISON: Multiple priors, most recently screening mammogram 08/31/2024 TECHNIQUE: Full field digital mammographic views of the RIGHT breast were performed, including computer aided detection (CAD) and digital breast tomosynthesis (DBT). BREAST PARENCHYMAL COMPOSITION: There are scattered areas of fibroglandular density. MAMMOGRAM FINDINGS: The questioned asymmetry in the middle central RIGHT breast on craniocaudal view appears less conspicuous on repeat craniocaudal view and has the appearance of prominent but otherwise normal fibroglandular tissue on spot compression view. Breast conservation therapy changes are noted in the RIGHT breast. IMPRESSION: Questioned RIGHT breast asymmetry has the appearance of benign fibroglandular tissue on diagnostic mammogram. OVERALL FINAL ASSESSMENT: BI-RADS Category 2: Benign. RECOMMENDATION: Annual screening mammography is recommended. Dictated by: Shamir Mena MD The radiology attending physician has personally reviewed this study, and had reviewed and/or edited this written report and agrees with it. Electronically signed by: Aundrea Irwin M.D. Montserrat Fajardo MELTER CLERK IMG MAMMO PROCEDURES Final Result * Screening Mammogram Bilateral W Jez (08/31/2024 10:46 AM METALSMITH HELPER) Anatomical Region Laterality Modality Breast Bilateral Mammography Narrative 08/31/2024 4:41 PM METALSMITH HELPER Mammogram Technique: Bilateral Digital Breast Tomosynthesis, Bilateral C-view 2D Screening mammogram. Views obtained: bilateral craniocaudal and bilateral mediolateral oblique. Computer Aided Detection was performed. Mammogram Findings: The present examination has been compared to prior imaging studies performed at [facility] on 05/31/2021, 06/17/2022 and 07/14/2023. There are scattered areas of fibroglandular density. There is asymmetry in the middle central breast on the craniocaudal view of the right breast. There is no suspicious abnormality in the left breast. Impression: Asymmetry in the right breast requires additional evaluation. Diagnostic mammogram and possible ultrasound of the right breast are recommended at this time. OVERALL FINAL ASSESSMENT: BI-RADS CATEGORY 0: Incomplete: Need additional imaging evaluation. Procedure Note Irish Mcgee MD - 08/31/2024 Mammogram Technique: Bilateral Digital Breast Tomosynthesis, Bilateral C-view 2D Screening mammogram. Views obtained: bilateral craniocaudal and bilateral mediolateral oblique. Computer Aided Detection was performed. Mammogram Findings: The present examination has been compared to prior imaging studies performed at [facility] on 05/31/2021, 06/17/2022 and 07/14/2023. There are scattered areas of fibroglandular density. There is asymmetry in the middle central breast on the craniocaudal viewof the right breast. There is no suspicious abnormality in the left breast. Impression: Asymmetry in the right breast requires additional evaluation. Diagnostic mammogram and possible ultrasound of the right breast are recommended at this time. OVERALL FINAL ASSESSMENT: BI-RADS CATEGORY 0: Incomplete: Need additional imaging evaluation. Montserrat Fajardo NP IMG MAMMO PROCEDURES Final Result from Last 3 Months Insurance [facility] [id number] Care Teams Manager Car Relationship Specialty Start Date End Date Leonarda Olivares DO [address] [place] [address] PCP - General Family Medicine 10/29/22 Darrel Medina III, OD [address] [place] [address] Consulting Physician Optometry 10/29/22 Shamir Redd MD [address] [place] [address] Consulting Physician Neurology 10/29/22
--- OUTSIDE RECORDS SUMMARY | 2024-09-13 00:43 | XMS_ITS | Clinical Summary ---
Author Organization [facility] Address [address] [place] [address] Phone Care Team Providers Care Washtub Worker Helper Name Role Phone Adam BRISCOE, ATUL, Darrel Morton Unavailable [phone] Shamir Redd MD Unavailable [phone] Leonarda Olivares DO Primary Care Provider [phone] Allergies Active Allergy Reactions Criticality Noted Date [...] from 09/27/2018:Stage IA(pT1a, pN0(sn), cM0, G2, ER+, IA+, HER2-) - Signed by Kasi Lobato MD on 10/14/2018 Clinical: Unsigned Abnormal mammogram 08/24/2018 Parkinson disease 03/31/2018 Assessment & Plan (07/11/2024 12:38 PM FIBERGLASS ROVING WINDER): She has stage 2, tremor-predominant PD with [...] stiffness but she takes it rarely since nursing home. She has fatigue but avoids caffeine [...] symptoms and this did improve with semi- nursing home She tried escitalopram and noted nausea [...] symptoms and this did improve with semi- nursing home She tried escitalopram and noted nausea [...] baclofen. Possibly consider botulinin. - Continue Rock Crossbar boxing and regular exercise - Same trazodone. [...] she is hopeful this will improve with nursing home She tried escitalopram and noted nausea [...] she is hopeful this will improve with nursing home She tried escitalopram and noted nausea [...] baclofen. Possibly consider botulinin. - Continue Rock Crossbar boxing and regular exercise - Same trazodone. - Could consider amantadine in the future. Assessment & Plan (09/02/2022 3:01 PM FIBERGLASS ROVING WINDER): She has stage 2, tremor-predominant PD with [...] PRN baclofen. Possibly consider botulinin. -continue Rock Crossbar boxing and regular exercise -Start PD Voice [...] study Assessment & Plan (07/23/2021 3:48 PM FIBERGLASS ROVING WINDER): She has stage 2 PD that tremor [...] her symptoms. 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 Assessment & Plan (06/20/2020 2:40 PM FIBERGLASS ROVING WINDER): She has stage 2 PD that tremor [...] Boxing. Assessment & Plan (10/03/2019 10:55 AM FIBERGLASS ROVING WINDER): She has very mild stage 2 PD [...] RSB. Assessment & Plan (09/06/2018 11:43 AM FIBERGLASS ROVING WINDER): She has very mild stage 2 PD [...] Department Care Team Description 09/08/2024 8:41 AM FIBERGLASS ROVING WINDER - 09/08/2024 11:59 PM FIBERGLASS ROVING WINDER Hospital Encounter [facility] - Breast Imaging [address] [place] [address] 8 [place] [address] Abnormality of right breast on screening mammography Discharge Disposition: Discharge to home or self care 09/01/2024 Telephone [facility] Surgery [address] [place] [phone] Josette Mcmahon CMA 08/31/2024 10:05 AM FIBERGLASS ROVING WINDER - 08/31/2024 11:59 PM FIBERGLASS ROVING WINDER Hospital Encounter [facility] - Breast Imaging [address] [place] [phone] Encounter for follow-up surveillance of breast cancer Discharge Disposition: Discharge to home or self care 08/31/2024 10:00 AM FIBERGLASS ROVING WINDER Office Visit [facility] Surgery [address] [place] [phone] Montserrat Fajardo NP Malignant neoplasm of 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, estrogen receptor positive (HCC) (Primary Dx); History of breast cancer; History of partial mastectomy of right breast; Encounter for screening mammogram for malignant neoplasm of breast 07/11/2024 11:00 AM FIBERGLASS ROVING WINDER Office Visit [facility] Movement Disorders [address] [place] [phone] Jessica Smith NP Parkinson's disease with dyskinesia and fluctuating manifestations (HCC) (Primary Dx); Levodopa-induced dyskinesia; Anxiety and depression; Psychophysiological insomnia; Chronic fatigue 07/04/2024 Telephone [facility] Surgery [address] [facility] Floor [address] [place] [address] Montserrat Fajardo NP from Last 3 Months Immunizations Name Administration [...] HIP ARTHROPLASTY 10/14/[address] Godwin at [facility] HEMORRHOID SURGERY 08/03/2012 - 08/02/2013 REVISION TOTAL HIP ARTHROPLASTY 04/15/2016 failed poly liner with hip subluxation of the right hip. COLONOSCOPY 07/23/2015 TOTAL HIP ARTHROPLASTY 01/24/[address] Godwin at [facility] BREAST BIOPSY 08/03/2016 - 08/02/2017 Left benign BREAST BIOPSY 09/02/2018 Right FOOT SURGERY 01/31/2018 - 03/02/2018 Right for degenerative changes Medical History Medical History Date Comments Hypertension Depression Psoriasis Parkinson's disease (HCC) f/by [facility] Psychophysiological insomnia Breast [...] CDT Gender Identity Female 07/23/2021 10:03 AM FIBERGLASS ROVING WINDER Sexual Orientation Straight 07/23/2021 10 :03 AM FIBERGLASS ROVING WINDER Obstetrics History Para Term AB IAB SAB [...] Comments Blood Pressure 172/109 07/11/2024 11:07 AM FIBERGLASS ROVING WINDER Pulse 91 07/11/2024 11:07 AM FIBERGLASS ROVING WINDER Temperature 36.3 C (97.4 F) 01/02/2023 9:52 AM CDT Respiratory Rate 18 04/08/2022 3:34 PM CDT Oxygen Saturation 98% 04/08/2022 3:34 PM CDT Inhaled Oxygen Concentration - - Weight 78.7 kg (173 lb 9.6 oz) 08/31/2024 10:16 AM FIBERGLASS ROVING WINDER Height 170.2 cm (5' 7 ) 08/31/2024 10:16 AM FIBERGLASS ROVING WINDER Body Mass Index 27.19 08/31/2024 10:16 AM FIBERGLASS ROVING WINDER Plan of Treatment Health Maintenance Due Date Last Done Comments Colon Cancer Screening-Colonoscopy 1962 Hepatitis C Screening 1962 Hepatitis B Screening 1980 Regular Well Visit/Exam 18-64 1980 Depression Screening 01/03/2024 01/02/2023 Influenza Vaccine (#1) 2024 8, 05/14/2017, 05/14/2017, Additional history exists Breast Cancer Screening-Mammogram 08/31/2025 08/31/2024, 07/14/2023, 06/17/2022, Additional history exists DTaP/Tdap/Td Vaccine (3 - Td or Tdap) 07/16/2028 07/16/2018, 03/20/2017 Pneumococcal vaccine <65 Aged Out 06/15/2015, 0704/2015 No longer eligible based on patient's age to complete this topic Zoster Vaccine Completed 10/22/2018, 07/16/2018 Medical Devices Implanted Type Area Monument Setter Helper Device Identifier Shelf Expiration Date Model / Serial / Lot Shell Ringlc+ Pc Left: Hip [employer] 09/30/2022 [id number] / / [id number] Description:Implanted Type A meghan Monument Setter Helper Device Identifier Expiration Date Model / Serial / Lot Shell Ringlc+ Pc 54mm [id number] - [id number] Implanted: Qty: 1 on 10/14/2012 Hip Left: Hip [employer] 09/30/2022 [id number] / / [id number] Liner Epoly Mrom Left: Hip Description:Liner Epoly Mrom 40mm Sz24 [id number] - [id number] Implanted: Qty: 1 on 10/14/2012 Hip Left: Hip [employer] 06/02/2015 [id number] / Head Fem Biolox Left: Hip Description:Head Fem [employer]ox Option 40mm 650-1058 - [id number] Implanted: Qty: 1 on 10/14/2012 by Supa Godwin MD Hip Left: Hip [employer] 01/30/2022 [id number] / Stem Fem Tprlc Red/Dis Left: Hip Description:Stem Fem Tprlc R ed/Dis [id number] - [id number] Implanted: Qty: 1 on 10/14/2012 Hip Left: Hip [employer] 08/02/2022 [id number] / / Procedures Procedure Name Priority Date/Time Associated Diagnosis Comments DIAGNOSTIC MAMMOGRAM RIGHT W JEZ Schedule Routine, Read Routine (OP Routine) 09/08/2024 9:43 AM FIBERGLASS ROVING WINDER Abnormality of right breast on screening mammography SCREENING MAMMOGRAM BILATERAL W JZE Schedule Routine, Read Routine (OP Routine) 08/31/2024 10:46 AM FIBERGLASS ROVING WINDER Encounter for follow-up surveillance of breast cancer from Last 3 Months Results * Diagnostic Mammogram Right W Jez (09/08/2024 9:43 AM FIBERGLASS ROVING WINDER) Anatomical Region Laterality Modality Breast Right Mammography 09/08/2024 9:48 AM FIBERGLASS ROVING WINDER Impressions 09/08/2024 9:57 AM FIBERGLASS ROVING WINDER Questioned RIGHT breast asymmetry has the appearance of benign fibroglandular tissue on diagnostic mammogram. OVERALL FINAL ASSESSMENT: BI-RADS Category 2: Benign. RECOMMENDATION: Annual screening mammography is recommended. Dictated by: Shamir Mena MD The radiology attending physician has personally reviewed this study, and had reviewed and/or edited this written report and agrees with it. Electronically signed by: Aundrea Irwin M.D. Narrative 09/08/2024 9:57 AM FIBERGLASS ROVING WINDER EXAMINATION: RIGHT UNILATERAL DIGITAL DIAGNOSTIC MAMMOGRAM AND [...] signed by: Aundrea Irwin M.D. Montserrat Fajardo NP IMG MAMMO PROCEDURES Final Result * Screening Mammogram Bilateral W Jez (08/31/2024 10:46 AM FIBERGLASS ROVING WINDER) Anatomical Region Laterality Modality Breast Bilateral Mammography Narrative 08/31/2024 4:41 PM FIBERGLASS ROVING WINDER Mammogram Technique: Bilateral Digital Breast Tomosynthesis, Bilateral C-view 2D Screening mammogram. Views obtained: bilateral craniocaudal and bilateral mediolateral oblique. Computer Aided Detection was performed. Mammogram Findings: The present examination has been compared to prior imaging studies performed at [facility] on 05/31/2021, 06/17/2022 and 07/14/2023. There [...] compared to prior imaging studies performed at [facility] on 05/31/2021, 06/17/2022 and 07/14/2023. There [...] Final Result from Last 3 Months Insurance [facility] [id number] Care Teams Washtub Worker Helper Relationship Specialty Start Date End Date Leonarda Olivares DO [address] [place] [address] PCP - General Family Medicine 10/29/22 Darrel Medina III, OD [address] [place] [address] Consulting Physician Optometry 10/29/22 Shamir Redd MD [address] [place] [address] Consulting Physician Neurology 10/29/22
--- OUTSIDE RECORDS SUMMARY | 2024-09-13 00:43 | XMS_ITS ---
Author Organization [facility] Address [address] [place] [address] Phone Care Team Providers Care Health Care Technician Name Role Phone [facility] ATUL BRISCOE, Darrel Morton Unavailable [phone] Shamir Redd MD Unavailable [phone] Leonarda Olivares DO Primary Care Provider [phone] Active Problems Problem Noted Date Diagnosed Date [...] from 09/27/2018:Stage IA(pT1a, pN0(sn), cM0, G2, ER+, UT+, HER2-) - Signed by Kasi Lobato MD on 10/14/2018 Clinical: Unsigned Abnormal mammogram 08/24/2018 Parkinson disease 03/31/2018 Assessment & Plan (07/11/2024 12:38 PM PACKAGE LINE OPERATOR): She has stage 2, tremor-predominant PD with [...] baclofen. Possibly consider botulinin. - Continue [employer] boxing and regular exercise - Same trazodone. [...] future. Assessment & Plan (09/02/2022 3:01 PM PACKAGE LINE OPERATOR): She has stage 2, tremor-predominant PD with [...] PRN baclofen. Possibly consider botulinin. -continue [employer] boxing and regular exercise -Start PD Voice [...] study Assessment & Plan (07/23/2021 3:48 PM PACKAGE LINE OPERATOR): She has stage 2 PD that tremor [...] her symptoms. 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 Assessment & Plan (06/20/2020 2:40 PM PACKAGE LINE OPERATOR): She has stage 2 PD that tremor [...] Boxing. Assessment & Plan (10/03/2019 10:55 AM PACKAGE LINE OPERATOR): She has very mild stage 2 PD [...] RSB. Assessment & Plan (09/06/2018 11:43 AM PACKAGE LINE OPERATOR): She has very mild stage 2 PD [...]
--- OUTSIDE RECORDS SUMMARY | 2024-09-13 00:43 | XMS_ITS | Continuity of Care Document ---
Author Organization [facility] Address [address] [place] [address] Phone Care Team Providers Care Soap Worker Name Role Phone Nascimento OD, Magdy Unavailable Unavailable Advance Directives Directive Yes / No Effective Date File Name No Information Encounters Encounter Description Practice Location Reason(s) For Visit Diagnoses Date Provider Providers Copied on Encounter [facility], [address], [place], [place], [id number], [place] tel:[phone] [facility] No Information 0 3-200 2 Nascimento OD Magdy. [address] , [address], [place], [address], [place]. tel:[phone] Family History Family Member Type Diagnosis Age [...]
--- OUTSIDE RECORDS SUMMARY | 2024-09-13 00:43 | XMS_ITS | Clinical Summary ---
Author Organization [facility] Address [address] [place] [address] Care Team Providers Care Axle Inspector Name Role Phone Kd Abraham MD Primary Care Provider [phone] Allergies Active Allergy Reactions Criticality Noted Date [...] Severe obesity (BMI 35.0-39. 9) with comorbidity ([facility]) 03/20/2017 Psychophysiological insomnia 01/02/2017 Abnormal mammogram 09/04/2016 Allergic rhinitis 03/13/2016 Hypothyroidism 03/13/2016 Parkinson disease ([facility]) 02/18/2016 Primary osteoarthritis of both hips 06/15/2015 Hip joint replacement by other means 02/21/2015 Psoriatic arthritis ([facility]) 02/08/2015 Overview (01/09/2020): Diagnosed August 2014 By [...] 79 03/06/2020 12:19 PM CDT Temperature 35.7 C (96.2 F) 03/06/2020 12:19 PM CDT Respiratory Rate 18 03/06/2020 12:19 PM CDT [...] Vaccines (1 of 2) 2012 COVID-19 Vaccine ( - 2023- season) 2024 Influenza Adult (#1) 2024 05/14/2017, [...] patient's age to complete this topic Insurance [employer] OPEN ACCESS [facility] Member Subscriber Plan / Payer (Ef fective 2019-Present) Name:JARAD BERTRAND Dave Relation to Subscriber:Self Name:Jhonatan Bertrandjaida Goodson Payer ID:Not on file Type:Not on file Address: [facility] [id number] [id number] Care Teams Axle Inspector Relationship Specialty Start Date End Date Kd Abraham MD [address] [place] [address] PCP - General INTERNAL MEDICINE 01/06/20
--- OUTSIDE RECORDS SUMMARY | 2024-09-13 00:43 | XMS_ITS | Clinical Summary ---
Author Organization 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 Gender Identity Not on file Sexual Orientation [...] AM CDT Pulse 87 06/22/2017 10:27 AM UPKEEP WORKER Temperature 36.5 C (97.7 F) 01/03/2017 8:28 AM CDT Respiratory Rate 18 01/03/2017 8:28 AM CDT [...] Cancer Screening 07/23/2025 DTAP/TDAP/TD VACCINES (3 - T d or Tdap) 07/16/2028 07/16/2018, 03/20/2017 Medical Devices Implanted Type Area Planning And Analysis Manager Device Identifier Shelf Expiration Date Model / Serial / Lot Shell Ringlc+ Pc 54mm [id number] - [id number] Implanted:Qty: 1 on 10/14/2012 at [facility] Hip Left: Hip [employer] 09/30/2022 [id number] / / [id number] Liner Epoly Mrom 40mm Sz24 [id number] - [id number] Implanted:Qty: 1 on 10/14/2012 at [facility] Hip Left: Hip [employer] 06/02/2015 [id number] / / [id number] Head Fem Biolox Option 40mm 650-1058 - [id number] Implanted:Qty: 1 on 10/14/2012 by Supa Godwin MD at [facility] Hip Left: Hip [employer] 01/30/2022 650-1058 / / [id number] Stem Fem Tprlc Red/Dis [id number] - [id number] Implanted:Qty: 1 on 10/14/2012 at [facility] Hip Left: Hip [employer] 08/02/2022 [id number] / / [id number] Slv Biolox Delta Optn Type 1 650-1064 - [id number] Implanted:Qty: 1 on 10/14/2012 at [facility] Hip Left: Hip [employer] 04/02/2022 650-1064 / / [id number] Slv Biolox Delta Optn Type 1 650-1065 - [id number] Implanted:Qty: 1 on 01/24/2014 at [facility] Hip Right: Hip [employer] 10/01/2023 650-1065 / / [id number] Shell Ringlc+ Pc 52mm [id number] - [id number] Implanted:Qty: 1 on 01/24/2014 at [facility] Hip Right: Hip [employer] 09/02/2023 [id number] / / [id number] Stem Fem Tprlc R/D Sz9 [id number] - [id number] Implanted:Qty: 1 on 01/24/2014 at [facility] Hip Right: Hip [employer] 09/30/2022 [id number] / / [id number] Description:PROCESSED ON REQ UISITION,[id number]. Liner Arcomxl Rnglc Sz23 Xl-[id number] - [id number] Implanted:Qty: 1 on 04/15/2016 by Supa Godwin MD at [facility] Hip Right: Hip [employer] [id number] 02/08/2021 [id number] / / [id number] Description:Both Biomet revi rosa components are processed on requisition,[id number]. Head Fem Biolox Option 36mm 650-1057 - [id number] Implanted:Qty: 1 on 04/15/2016 by Supa Godwin MD at [facility] Hip Right: Hip [employer] [id number] 02/07/2026 650-1057 / / [id number] Explanted Type Area Planning And Analysis Manager Device Identifier Shelf Expiration Date Model / Serial / Lot Liner Epoly Mrom 36mm Sz23 Ep-[id number] - [id number] Implanted:Qty: 1 on 01/24/2014 at [facility] Explanted:Qty: 1 on 04/15/2016 by Supa Godwin MD at [facility] Hip Right: Hip [employer] 07/02/2018 [id number] / / [id number] Head Fem Biolox Option 36mm 650-1057 - [id number] Implanted:Qty: 1 on 01/24/2014 at [facility] Explanted:Qty: 1 on 04/15/2016 by Supa Godwin MD at [facility] Hip Right: Hip [employer] 01/01/2024 650-5921 / / [id number] Procedures Procedure Name Priority Date/Time Associated Diagnosis [...] Most Recently Relevant to Health Maintenance Insurance [facility] Address: [id number] [place] [address] Advance Directives For more information, please contact: [phone] Documents on File Type Date Recorded 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
[2024-09-13] MEDS: ACETAMINOPHEN 500 MG TABLET 1000 MG PO (10:00)
[2024-09-13] MEDS: LACTATED RINGERS 1,000 ML 30 ML IV CONT ×2 (10:00→15:47)
--- NOTE | 2024-09-13 11:28 | WPDHPUPDATE1 ---
History and Physical Update Update Date/Time: 09/13/24 11:28 History and Physical has been reviewed, including an updated exam of the patient. There are NO changes in the patient's condition. Risks, benefits, and alternatives have been discussed and questions answered. Patient agrees to proceed with procedure.
--- NOTE | 2024-09-13 12:16 | WPDANESEPPF ---
Anes - Initial Pre Proc Eval Procedure: Operation Date: 09/13/24 12:00 Proposed Procedures p Left Total Knee Arthroplasty - Italo Silverio MD Date/Time: 09/13/24 12:16 Surgeon: Italo Silverio MD Pre Op Diagnosis: Left Knee O A Patient Data Age: 64 Gender: F Height: 1.68 m Weight: 80.1 kg Last Vital Signs Temp 98.0 F 08/30/24 12:16 Pulse 79 08/30/24 12:16 Resp 16 08/30/24 12:16 BP 153/90 H 08/30/24 12:16 Pulse Ox 100 08/30/24 12:16 O2 Del Method Room Air 08/30/24 12:16 Allergies Allergy/AdvReac Type Severity Reaction Status Date / Time adhesive Allergy Mild RASH Verified 08/30/24 12:10 Home Medications ?Medication ?Instructions ?Recorded ?Confirmed ?Type aspirin 81 mg tablet,delayed 81 mg PO DAILY 08/23/19 08/30/24 History release (Adult Aspirin Regimen) cholecalciferol (vitamin D3) 50 1,000 unit PO DAILY 08/23/19 08/30/24 History mcg (2,000 unit) tablet trazodone 100 mg tablet 100 mg PO HS 08/23/19 08/30/24 History carbidopa ER 50 mg-levodopa 200 mg 1 tablet PO ONCE 09/23/19 08/30/24 History tablet,extended release carbidopa 25 mg-levodopa 100 mg 2.5 tablet PO .Every 3 Hours 09/02/21 08/30/24 History tablet xnlbxrnvptso-bixitwmr-zsmtoid-folic 1 tablet PO DAILY 03/20/23 08/30/24 History acid 400 mcg-vit K1 20 mcg tablet (One-A-Day Women's 50 Plus) meloxicam 15 mg tablet 15 mg PO DAILY 05/02/24 08/30/24 History lisinopril 40 mg tablet 40 mg PO DAILY #90 tabs 07/15/24 08/30/24 Rx levothyroxine 100 mcg tablet 100 mcg PO .QOD #45 tabs 08/09/24 08/30/24 Rx gabapentin 100 mg capsule 200 mg (2 x 100 mg) PO QHS #180 08/15/24 08/30/24 Rx caps levothyroxine 88 mcg tablet See Rx Instructions .Route 08/29/24 08/30/24 Rx .COMPLEX #90 tabs pravastatin 40 mg tablet See Rx Instructions .Route 08/29/24 08/30/24 Rx .COMPLEX #90 tabs chlorhexidine gluconate 4 % 1 applic topical ONCE #237 mL 08/30/24 08/30/24 Rx topical liquid (Hibiclens) Laboratory Tests 09/13/24 10:13 Blood Type O Positive Antibody Screen Negative Patient hx anesthesia problems: none Family hx anesthesia problems: none Results Review: All pre-operative results and documents have been reviewed as part of the pre-operative evaluation. 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 De Quervain's disease (radial styloid tenosynovitis) Cervical dystonia Parkinsons Intertrigo Acquired hypothyroidism Body mass index (bmi) 34.0-34.9, adult (03/10/18) Dysthymia Essential hypertension Hallux rigidus, right foot Hyperlipidemia LDL goal <130 Psychophysiological insomnia Surgical History Surgical History History of carpal tunnel surgery of left wrist with cubital tunnel release 05/11/2024 History of lumpectomy of right breast R breast cancer 2019 History of foot surgery R foot hallux rigidus 2018 History of epicondylectomy R elbow 1993 History of repair of right hip joint 2016 R Hip Repair broken piece H/O left breast biopsy History of right hip replacement H/O hemorrhoidectomy History of left hip replacement History of lumbar laminectomy H/O nasal septoplasty H/O arthroscopic knee surgery History of partial hysterectomy H/O tubal ligation Family History Family History Mother Patient's mother is in good health Father Family history of congestive heart failure Other Family history of heart disease in male family member before age 55 Hypertension Social History Social History (Reviewed 08/26/24 @ 09:55 by SHAZIA Anderson Smoking status: Never smoker Second hand tobacco smoke exposure: No Alcohol intake: never Substance use: never Lack of Transportation: No Lack of Food: Never True Current Housing: I Have Housing Concerned About Future Housing: No Difficulty Paying Gas/Electric Bills: No Difficulty Paying for Meds: No Currently Unemployed: No Education: High School Diploma/GED Difficulty w/ Childcare or Family Care: No Living arrangements: with family Additional living arrangements comments: Spiritual care concerns: No Anes - Eval Final PreProcedure Day of Procedure 09/13/24 12:16 Patient weight: normal Heart: regular rate and rhythm Lungs: clear to auscultation Airway: Mallampati scale class II Neurological: alert and oriented Last oral intake: >/= 8 hours ASA classification: III Emergent: no Anesthetic plan: proceed Anesthesia type and monitoring: general LMA and standard monitoring Results Review: All pre-operative results and documents have been reviewed as part of the pre-operative evaluation. Informed Consent: The patient's anesthetic plan and its attendant risks and benefits were discussed with the patient/family/POA. Questions were solicited and answers provided to the satisfaction of the patient/family/POA.
--- NOTE | 2024-09-13 12:43 | WPDANESPNB ---
Anes - Peripheral Nerve Block Date/Time: 09/13/24 12:43 I have discussed with the patient/family/POA the placement of a peripheral nerve block for post-operative pain management, including associated risks, benefits, complications, and side effects. Alternative methods of post-operative analgesia were detailed. Questions were solicited and answers provided to the satisfaction of the patient/family/POA. Time-Out: A pre-procedural Time-Out was completed immediately before starting the procedure and confirmed: Patient Identification, Site, Procedure, Patient Position and the Availability of Requisite Equipment. Clinical Indications: Acute post-operative pain management requested by the operative surgeon. Nerve Block Insertion Note Anes-nerve block: adductor canal left Patient position: supine Skin prep: chlorhexidine Needle: 22 gauge, stimulating, insulated echogenic needle. Needle length: 80 mm Technique: ultrasound Injectate: other (Bupiv 0.5% 15 mls. ) Observations: tolerated well Complications: none Procedure start time:: 1231 Procedure end time:: 1241
[2024-09-13] MEDS: TRANEXAMIC ACID 1,000MG/ISO100 1,000 MG/100 ML BAG 200 MG IVPB (12:44)
[2024-09-13] MEDS: ceFAZolin 2 GM/D5W 50 ML 2 GM/50 ML BAG IVPB ×2 (12:44→20:55)
[2024-09-13] MEDS: SODIUM CHLORIDE 0.9% IV 37.7 ML, MORPHINE SULFATE INJ (*CRX) 2 MG, ROPivacaine HCL 1% 2... INFILTRATE (13:33)
--- NOTE | 2024-09-13 15:34 | P.OP_ITS ---
Procedure Note - Detailed Date of Procedure 09/13/24 Pre-op Diagnosis Left Knee O A Post-op Diagnosis Same Procedure Performed L TKA Surgeon Italo Silverio MD Anesthesia General Description of Procedure THE LEFT KNEE WAS PREPPED AND DRAPED IN THE STERILE FASHION. THERE WAS A 10 DEGREE FLEXION CONTRACTURE. A MIDLINE SKIN INCISION WAS MADE. A MEDIAL PARAPATELLAR ARTHROTOMY WAS MADE. THE PATELLA WAS EVERTED. THERE WAS TRICOMPARTMENT DJD. AN INTRAMEDULLARY TAYLOR WAS PLACED IN THE FEMUR. A DISTAL FEMORAL CUT WAS MADE IN 5 DEGREES OF VALGUS REMOVING APPROXIMATELY 9 MM OF BONE FROM THE DISTAL FEMUR. THE FEMUR WAS SIZED TO A 3. A 3 FEMORAL CUTTING BLOCK WAS PLACED IN 3 DEGREES OF EXTERNAL ROTATION AND IN ALIGNMENT WITH SANTOSH'S LINE AND THE TRANSEPICONDYLAR AXIS. ANTERIOR POSTERIOR AND CHAMFER CUTS WERE MADE. THE CUTS WERE EXCELLENT. NEXT AN INTRAMEDULLARY CUTTING GUIDE WAS PLACED IN THE TIBIA. A TRANS TIBIAL CUT WAS MADE ALONG THE LONG AXIS OF THE TIBIA. APPROXIMATELY 8 MM OF BONE WAS REMOVED FROM THE HIGH SIDE OF THE TIBIA. THE TIBIA WAS THEN PLANED TO A SMOOTH SURFACE. POSTERIOR FEMORAL OSTEOPHYTES WERE REMOVED FROM THE FEMORAL CONDYLES. A 3 TIBIAL TRIAL WAS PLACED IN ALIGNMENT WITH THE 1/3 MEDIAL ASPECT OF THE TIBIAL TUBERCLE. A POSTERIOR STABILIZED CUTTING BLOCK WAS PLACED AND A BOX CUT WAS MADE. THEN A 3 PS FEMORAL TRIAL COMPONENT WAS PLACED. BOTH HAD EXCELLENT FITS. EVENTUALLY A 9 PS POLYETHYLENE TRIAL COMPONENT WAS PLACED. THE KNEE WAS TAKEN THROUGH A RANGE OF MOTION. THE KNEE CAME OUT TO FULL EXTENSION. THERE WAS NO ABNORMAL TILT TO THE PATELLA. THERE WAS GOOD A/P AND VARUS/VALGUS STABILITY. THERE WAS NO EXCESSIVE ROLL BACK WITH FLEXION. THE TRIAL COMPONENTS WERE REMOVED. THEN A 3 PS FEMORAL COMPONENT AND 3 TIBIAL COMPONENT WITH A 9 PS POLYETHYLENE COMPONENT WERE CEMENTED INTO PLACE. ONCE THE CEMENT WAS HARD THE KNEE WAS TAKEN THROUGH A ROM AGAIN AND FO UND TO BE STABLE WITH NO PATELLA TILT NO EXCESSIVE ROLL BACK WITH FLEXION AND GOOD STABILITY WITH COMPLETE AND FULL EXTENSION. THE KNEE WAS IRRIGATED WITH STERILE BETADINE AND WATER FOR ABOUT 3 MINUTES. THE BLEEDERS WERE CAUTERIZED. THE ARTHROTOMY WAS REPAIRED WITH NUMBER 1 VICRYL. THE SUB CUTANEOUS LAYER WITH 2-0 VICRYL AND THE SKIN WITH 3-0 STRATAFIX AND DERMABOND. THE WOUND WAS WASHED AND A STERILE DRESSING WAS APPLIED. PATIENT WAS EXTUBATED. Estimated Blood Loss -150.0 Pathology None sent Complications No immediate complications Condition Stable Disposition PACU
[2024-09-13] MEDS: fentaNYL CITRATE INJ (*CRX) 100 MCG/2 ML VIAL 25 MCG IV PUSH ×2 (16:53→16:57)
--- NOTE | 2024-09-13 17:20 | ADMGEN ---
This patient, Anastasiya Bertrand, was admitted to [facility] Surg Room 305-02. Patient/family oriented to hospital policies and general routines including ID bracelet, bed and alarms, visiting hours, pain management, procedures, bathroom and other care routines, personal items, smoking policy, room service/diet, and visiting hours. Information on how to activate the Rapid Response Team has been discussed. Patient/Family are encouraged to report perceived risks to care and to ask questions if they do not understand what they are told or what they should do.
[2024-09-13] MEDS: CARBIDOPA/LEVODOPA 12.5/50 MG TABLET 1 TABLET PO ×2 (17:51→20:53)
[2024-09-13] MEDS: CARBIDOPA/LEVODOPA 25/100 MG TABLET 2 TABLET PO ×2 (17:52→20:52)
[2024-09-13] MEDS: KETOROLAC 15 MG/ML VIAL (*BKC) IV PUSH (17:52)
[2024-09-13] MEDS: SENNA/DOCUSATE SODIUM TABLET 2 TAB PO (17:54)
[2024-09-13] MEDS: GABAPENTIN 100 MG CAPSULE 200 MG PO (20:52)
[2024-09-13] MEDS: FAMOTIDINE 20 MG TABLET PO (20:52)
[2024-09-13] MEDS: traZODone HCL 50 MG TABLET 100 MG PO (20:52)
[2024-09-13] MEDS: PRAVASTATIN SODIUM 20 MG TABLET 40 MG BY MOUTH (20:52)
[2024-09-14] MEDS: CARBIDOPA/LEVODOPA 25/100 MG TABLET 2 TABLET PO ×5 (00:25→11:30)
[2024-09-14] MEDS: CARBIDOPA/LEVODOPA 12.5/50 MG TABLET 1 TABLET PO ×5 (00:25→11:23)
[2024-09-14] MEDS: KETOROLAC 15 MG/ML VIAL (*BKC) IV PUSH ×3 (00:26→11:31)
[2024-09-14 00:45] VITALS: BP 116/60; PULSE 86; RESP 20; TEMP 37.1; O2SAT 97
[2024-09-14] MEDS: ceFAZolin 2 GM/D5W 50 ML 2 GM/50 ML BAG IVPB ×2 (06:00→12:30)
[2024-09-14 06:48] VITALS: BP 122/66; PULSE 91; RESP 20; TEMP 37.2; O2SAT 98
[2024-09-14 07:15] LABS: Basophils Absolute Auto 0.1 K/mm3 (0.0-0.1); Basophils Percent Auto 0.4 % (0.2-1.2); Eosinophils Absolute Auto 0.1 K/mm3 (0-0.3); Eosinophils Percent Auto 0.4 % (0-4.4); Hematocrit 35.3 % (37.0-47.0); Hemoglobin 11.3 g/dL (12.0-15.0); Immature Granulocyte Absolute 0.04 K/mm3 (0.00-0.031); Immature Granulocyte Percent A 0.3 % (0-0.5); Lymphocytes Absolute Auto 1.58 K/mm3 (0.9-3.2); Lymphocytes Percent Auto 12.4 % (18.3-44.2); Mean Corpuscular Volume 90.7 fl (80-100); Mean Platelet Volume 9.1 fl (7.4-10.4); Monocytes Absolute Auto 1.3 K/mm3 (0.1-0.6); Monocytes Percent Auto 10.3 % (2.6-8.5); Neutrophils Absolute Auto 9.7 K/mm3 (1.3-6.7); Neutrophils Percent Auto 76.2 % (45.5-73.1); Platelet Count Result 333 k/mm3 (150-375); Red Blood Count 3.89 M/mm3 (4.2-5.4); Red Cell Distribution Width 13.4 % (11.5-14.5); White Blood Count 12.7 K/mm3 (4.5-10.0)
[2024-09-14 07:25] LABS: Anion Gap 7 mmol/L (4-12); Blood Urea Nitrogen 13 mg/dL (7-17); Calcium 8.7 mg/dL (8.4-10.2); Carbon Dioxide 28 mmol/L (22-30); Chloride 102 mmol/L (98-107); Estimated CRCL calculation 85 ml/min; Estimated Glomerular Filt Rate > 60; Glucose 104 mg/dL (65-110); Potassium 4.4 mmol/L (3.4-5.0); Sodium 137 mmol/L (137-145)
[2024-09-14] MEDS: FAMOTIDINE 20 MG TABLET PO (08:50)
[2024-09-14] MEDS: lisinopriL 20 MG TABLET 40 MG PO (08:51)
[2024-09-14] MEDS: ASPIRIN 325 MG ENTERIC TABLET 650 MG PO (08:51)
[2024-09-14] MEDS: SENNA/DOCUSATE SODIUM TABLET 2 TAB PO (08:51)
[2024-09-14] MEDS: polyethylene glycoL 3350 17 GM POWD.PACK PO (08:51)
[2024-09-14 10:48] VITALS: BP 96/46; PULSE 54; RESP 17; TEMP 36.5; O2SAT 97
[2024-09-14] MEDS: oxyCODONE/ACETAMINOPHEN (*CRX) 5-325 MG TABLET 1 TABLET PO (10:57)
--- NOTE | 2024-09-14 14:01 | PM.PNORT ---
Progress Note: A&P Assessment and Plan (1) Arthritis of left knee: Code(s): M17.12 - Unilateral primary osteoarthritis, left knee Status: Acute Plan POD 1 DOING WELL WITH GOOD PROGRESS WITH PT. OK TO DC HOME WITH PT AND NURSING. SHE WILL F/U IN 3 WEEKS. Subjective Subjective Date/Time Seen: 09/14/24 14:01 Interval history: POD 1 DOING WELL. NO CALF PAIN. GOOD PROGRESS WITH PT. Exam Extrem: Other: VSS AFEBRILE DRESSING DRY NV INTACT NEG HOMANS SIGN, CALF SOFT NON TENDER, THIGH SOFT NON TENDER Objective Data Vital Signs Vital Signs: Vital Signs - 24 hr 09/13/24 15:47 09/13/24 16:00 09/13/24 16:15 Temperature 37.3 C Pulse Rate 72 72 73 Respiratory Rate 16 14 14 Blood Pressure 148/76 H 147/84 H 158/70 H Pulse Oximetry 100 100 100 Oxygen Delivery Simple Face Mask Simple Face Mask Simple Face Mask Oxygen Flow Rate 8 8 8 09/13/24 16:30 09/13/24 16:45 09/13/24 17:00 Temperature Pulse Rate 72 74 78 Respiratory Rate 16 18 12 Blood Pressure 164/76 H 149/83 H 142/79 H Pulse Oximetry 100 100 96 Oxygen Delivery Room Air Room Air Room Air Oxygen Flow Rate 09/13/24 17:20 09/13/24 17:35 09/13/24 18:05 Temperature 36.2 C L 36.6 C 36.6 C Pulse Rate 82 84 82 Respiratory Rate 16 16 18 Blood Pressure 153/76 H 156/79 H 150/86 H Pulse Oximetry 98 97 99 Oxygen Delivery Oxygen Flow Rate 09/13/24 19:05 09/13/24 20:10 09/14/24 00:45 Temperature 35.9 C L 36.5 C 37.1 C Pulse Rate 86 86 86 Respiratory Rate 18 18 20 Blood Pressure 109/66 105/60 116/60 Pulse Oximetry 98 99 97 Oxygen Delivery Oxygen Flow Rate 09/14/24 06:48 09/14/24 08:00 09/14/24 09:14 Temperature 37.2 C Pulse Rate 91 Respiratory Rate 20 Blood Pressure 122/66 Pulse Oximetry 98 Oxygen Delivery Room Air Room Air Oxygen Flow Rate 09/14/24 10:48 Temperature 36.5 C Pulse Rate 54 L Respiratory Rate 17 Blood Pressure 96/46 L Pulse Oximetry 97 Oxygen Delivery Oxygen Flow Rate Intake/Output Intake/Output: Intake & Output 09/11/24 09/12/24 09/13/24 09/14/24 23:59 23:59 23:59 23:59 Intake Total 500 953 Balance 500 953 Meds/Results Medications: Active Medications Generic Name Dose Route Start Last Admin Trade Name Freq PRN Reason Stop Dose Admin Acetaminophen 500 mg 09/13/24 17:03 Acetaminophen 500 Mg Tablet PO Q6H PRN Pain Rated 1-3 Aspirin 650 mg 09/14/24 09:00 09/14/24 08:51 Aspirin 325 Mg Enteric Tablet PO 650 mg DAILY SIMONE Administration Carbidopa/Levodopa 2 tablet 09/13/24 18:00 09/14/24 11:30 Carbidopa/Levodopa 25/100 Mg Tablet PO 2 tablet Q3HR SIMONE Administration Carbidopa/Levodopa 1 tablet 09/13/24 18:00 09/14/24 11:23 Carbidopa/Levodopa 12.5/50 Mg Tablet PO 1 tablet Q3HR SIMONE Administration Diazepam 5 mg 09/13/24 17:03 Diazepam (*Crx) 5 Mg Tablet PO Q8H PRN Spasms Diphenhydramine HCl 25 mg 09/13/24 17:03 Diphenhydramine Hcl Inj 50 Mg/Ml Vial IV PUSH Q6H PRN Itching Famotidine 20 mg 09/13/24 21:00 09/14/24 08:50 Famotidine 20 Mg Tablet PO 20 mg Q12HR SIMONE Administration Gabapentin 200 mg 09/13/24 21:00 09/13/24 20:52 Gabapentin 100 Mg Capsule PO 200 mg QHS SIMONE Administration Hydromorphone HCl 1 mg 09/13/24 17:03 Hydromorphone Hcl Inj (*Crx) 1 Mg/Ml Syr IV PUSH Q2H PRN Breakthrough Pain Rated 7-10 or NPO Hydromorphone HCl 0.5 mg 09/13/24 17:03 Hydromorphone Hcl Inj (*Crx) 1 Mg/Ml Syr IV PUSH Q2H PRN Breakthrough Pain Rated 4-6 or NPO Ibuprofen 800 mg in 200 mls @ 400 mls/hr 09/13/24 17:03 Caldolor 800 Mg/200 Ml IVPB Q6H PRN Breakthrough Pain Rated 1-3 or NPO Ketorolac Tromethamine 15 mg 09/13/24 18:00 09/14/24 11:31 Ketorolac 15 Mg/Ml Vial (*Bkc) IV PUSH 09/14/24 18:01 15 mg Q6HR SIMONE Administration Levothyroxine Sodium 0 mcg 09/13/24 17:03 Levothyroxine Sodium 88 Mcg Tablet BY MOUTH .COMPLEX SIMONE Levothyroxine Sodium 100 mcg 09/13/24 17:03 Levothyroxine Sodium 100 Mcg Tablet PO .QOD SIMONE Lisinopril 40 mg 09/14/24 09:00 09/14/24 08:51 Lisinopril 20 Mg Tablet PO 40 mg DAILY SIMONE Administration Miscellaneous Information 1 each 09/14/24 00:01 09/14/24 12:34 Which Levothyroxine Dose Is Due On 09/14? XX 10/14/24 00:00 Not Given [facility] Naloxone HCl 0.1 mg 09/13/24 17:03 Naloxone Hcl 0.4 Mg/Ml Vial IV PUSH Q2M PRN Opiate Reversal Ondansetron HCl 4 mg 09/13/24 17:03 Ondansetron Inj 4 Mg/2 Ml Vial IV PUSH Q4H PRN Nausea And Vomiting Oxycodone/Acetaminophen 1 tablet 09/13/24 17:03 09/14/24 10:57 Oxycodone/Acetaminophen (*Crx) 5-325 Mg Tablet PO 1 tablet Q4H PRN Administration Pain Rated 4-6 Oxycodone/Acetaminophen 1 tab 09/13/24 17:03 Oxycodone/Acetaminophen (*Crx) 10-325 Mg Tablet PO Q6H PRN Pain Rated 7-10 Polyethylene Glycol 17 gm 09/14/24 09:00 09/14/24 08:51 Polyethylene Glycol 3350 17 Gm Powd.Pack PO 17 gm QAM SIMONE Administration Pravastatin Sodium 40 mg 09/13/24 21:00 09/13/24 20:52 Pravastatin Sodium 20 Mg Tablet BY MOUTH 40 mg HS SIMONE Administration Senna/Docusate Sodium 2 tab 09/13/24 17:03 09/14/24 08:51 Senna/Docusate Sodium Tablet PO 2 tab BID SIMONE Administration Trazodone HCl 100 mg 09/13/24 21:00 09/13/24 20:52 Trazodone Hcl 50 Mg Tablet PO 100 mg HS SIMONE Administration Radiology Results: ITS Impressions Knee X-Ray 09/13/24 16:13 IMPRESSION: 1. Total left knee arthroplasty in near-anatomic alignment. Labs Labs: Laboratory Results - last 24 hr 09/14/24 06:45 WBC 12.7 H RBC 3.89 L Hgb 11.3 L Hct 35.3 L MCV 90.7 MCH 29.0 MCHC 32.0 RDW 13.4 Plt Count 333 MPV 9.1 Immature Gran % (Auto) 0.3 Neut % (Auto) 76.2 H Lymph % (Auto) 12.4 L Bryan % (Auto) 10.3 H Eos % (Auto) 0.4 Baso % (Auto) 0.4 Lymph # (Auto) 1.58 Bryan # (Auto) 1.3 H Eos # (Auto) 0.1 Baso # (Auto) 0.1 Abs Immat Gran (auto) 0.04 H Absolute Neuts (auto) 9.7 H Absolute Nucleated RBC 0.000 Nucleated RBC % 0.0 Sodium 137 Potassium 4.4 Chloride 102 Carbon Dioxide 28 Anion Gap 7 BUN 13 Creatinine 0.62 L Estim Creat Clear Calc 85 Estimated GFR > 60 Glucose 104 Calcium 8.7
--- NOTE | 2024-09-14 15:16 | PC.NURSE ---
Dressing changed and spare sent with patient for home health nurse to change in 7 days.
== END 2024-09-14 15:18 | disposition home health service (06) ==
LOC: ANHSURGERY 09:37 → ANH3MEDSUR 17:05
PROVIDERS: PCP Family Medicine; Visit Provider Orthopaedic Surgery
PROC: (CPT 27447; principal; 2024-09-13 12:00)
DX: M17.12 Unilateral primary osteoarthritis, left knee (principal); G89.18 Other acute postprocedural pain; I10 Essential (primary) hypertension; G20.A1 Parkinson's disease without dyskinesia, without mention of fluctuations; E78.5 Hyperlipidemia, unspecified; E03.9 Hypothyroidism, unspecified; Z79.899 Other long term (current) drug therapy
CPT/HCPCS: 27447; 64447; 36415; 73560; 80048; 85025; 86850; 86900; 86901; 97110; 97116; 97161; 97165; A9270; C1713; C1776; J0171; J0690; J1100; J1885; J2003; J2250; J2270; J2405; J2704; J2795; J3010; J3370; J7120

== ENCOUNTER 2024-11-03 08:20 | Outpatient (CLI) | payer OTHER, SELFPAY ==
--- OUTSIDE RECORDS SUMMARY | 2024-11-03 08:27 | XMS_ITS | Encounter Summary ---
Author Organization [facility] Address [facility] [place] [address] Care Team Providers Care Chemical Process Project Engineer Name Role Phone Mario Albarado MD Primary Care Provider [phone] Kd Abraham MD Primary Care Provider [phone] Encounter Details Date Type Department Care Team (Late st Contact Info) Description 12/31/2012 Abstract [facility] CONVERSION [address] [place] [address] , Generic Conversion, Social History Tobacco Use [...] on filedocumented in this encounter Care Teams Chemical Process Project Engineer Relationship Specialty Start Date End Date Mario Albarado MD PCP - General 06/24/11 01/05/20 Kd Abraham MD [address] [place] [address] PCP - General INTERNAL MEDICINE 01/06/20 documented as of this encounter
--- OUTSIDE RECORDS SUMMARY | 2024-11-03 08:27 | XMS_ITS | Referral Summary ---
Author Organization [facility] Address [address] [place] [address] Phone Care Team Providers Care Consulting Senior Practice Director Name Role Phone Adam BRISCOE OD, Darrel Morton Unavailable [phone] Shamir Redd MD Unavailable [phone] Leonarda Olivares DO Primary Care Provider [phone] Encounters Date Type Department Care Team Description 09/08/2024 8:41 AM BLOWING WEASAND - 09/08/2024 11:59 PM BLOWING WEASAND Hospital Encounter [facility] [address] [place] [address] Abnormality of right breast on screening mammography Discharge Disposition: Discharge to home or self care 09/01/[address] [facility] [address] [place] [phone] Josette Mcmahon CMA 08/31/2024 10:05 AM BLOWING WEASAND - 08/31/2024 11:59 PM BLOWING WEASAND Hospital Encounter [facility] [address] [place] [address] [address] [place] [address] Encounter for follow-up surveillance of breast cancer Discharge Disposition: Discharge to home or self care 08/31/2024 10:00 AM BLOWING WEASAND Office Visit 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 Psoriasis 10/03/2019 Insomnia due to medical condition 10/03/2019 Encounter for follow-up surveillance of breast c ancer 11/18/2018 Malignant neoplasm of upper- inner quadrant of right breast in female, estrogen receptor positive 10/10/2018 Cancer Staging:Pathologic stage from 09/27/2018:Stage IA(pT1a, pN0(sn), cM0, G2, ER+, LA+, HER2-) - Signed by Kasi Lobato MD on 10/14/2018 Clinical: Unsigned Abnormal mammogram 08/24/2018 Parkinson disease 03/31/2018 Assessment & Plan (07/11/2024 12:38 PM BLOWING WEASAND): She has stage 2, tremor-predominant PD with [...] stiffness but she takes it rarely since usp. She has fatigue but avoids caffeine due [...] symptoms and this did improve with semi- usp She tried escitalopram and noted nausea so [...] symptoms and this did improve with semi- usp She tried escitalopram and noted nausea so [...] baclofen. Possibly consider botulinin. - Continue [employer] [place] boxing and regular exercise - Same trazodone. [...] she is hopeful this will improve with usp She tried escitalopram and noted nausea so [...] she is hopeful this will improve with usp She tried escitalopram and noted nausea so [...] future. Assessment & Plan (09/02/2022 3:01 PM BLOWING WEASAND): She has stage 2, tremor-predominant PD with [...] PRN baclofen. Possibly consider botulinin. -continue [place] boxing and regular exercise -Start PD Voice [...] study Assessment & Plan (07/23/2021 3:48 PM BLOWING WEASAND): She has stage 2 PD that tremor [...] her symptoms. 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 Assessment & Plan (06/20/2020 2:40 PM BLOWING WEASAND): She has stage 2 PD that tremor [...] Boxing. Assessment & Plan (10/03/2019 10:55 AM BLOWING WEASAND): She has very mild stage 2 PD [...] RSB. Assessment & Plan (09/06/2018 11:43 AM BLOWING WEASAND): She has very mild stage 2 PD [...] 35.0-39. 9) with comorbidity 03/20/2017 05/08/2023 Immunizations Immunization Administration Dates Next Due Influenza, Trivalent, IM [...] CDT Gender Identity Female 07/23/2021 10:03 AM BLOWING WEASAND Sexual Orientation Straight 07/23/2021 10 :03 AM BLOWING WEASAND Last Filed Vital Signs Vital Sign Reading Time Taken Comments Blood Pressure 172/109 07/11/2024 11:07 AM BLOWING WEASAND Pulse 91 07/11/2024 11:07 AM BLOWING WEASAND Temperature 36.3 C (97.4 F) 01/02/2023 9:52 AM CDT Respiratory Rate 18 04/08/2022 3:34 PM CDT Oxygen Saturation 98% 04/08/2022 3:34 PM CDT Inhaled Oxygen Concentration - - Weight 78.7 kg (173 lb 9.6 oz) 08/31/2024 10:16 AM BLOWING WEASAND Height 170.2 cm (5' 7 ) 08/31/2024 10:16 AM BLOWING WEASAND Body Mass Index 27.19 08/31/2024 10:16 AM BLOWING WEASAND Plan of Treatment Not on file Medical Devices Implanted Type Area Regional Construction Manager Device Identifier Shelf Expiration Date Model / Serial / Lot Shell Ringlc+ Pc Left: Hip [employer] 09/30/2022 [id number] / / [id number] Description:Implanted Type A meghan Regional Construction Manager Device Identifier Expiration Date Model / Serial / Lot Shell Ringlc+ Pc 54mm [id number] - [id number] Implanted: Qty: 1 on 10/14/2012 Hip Left: Hip [employer] 09/30/2022 [id number] / / [id number] Liner Epoly Mrom Left: Hip Description:Liner Epoly Mrom 40mm Sz24 [id number] - [id number] Implanted: Qty: 1 on 10/14/2012 Hip Left: Hip [employer] 06/02/2015 [id number] / Head Fem Biolox Left: Hip Description:Head Fem Biolox Option 40mm 650-1058 - [id number] Implanted: Qty: 1 on 10/14/2012 by Supa Godwin MD Hip Left: Hip [employer] 01/30/2022 650-1058 / Stem Fem Tprlc Red/Dis Left: Hip Description:Stem Fem Tprlc R ed/Dis [id number] - [id number] Implanted: Qty: 1 on 10/14/2012 Hip Left: Hip [employer] 08/02/2022 [id number] / / Procedures Procedure Name Priority Date/Time Associated Diagnosis Comments DIAGNOSTIC MAMMOGRAM RIGHT W JEZ Schedule Routine, Read Routine (OP Routine) 09/08/2024 9:43 AM BLOWING WEASAND Abnormality of right breast on screening mammography SCREENING MAMMOGRAM BILATERAL W JEZ Schedule Routine, Read Routine (OP Routine) 08/31/2024 10:46 AM BLOWING WEASAND Encounter for follow-up surveillance of breast cancer from Last 3 Months Results * Diagnostic Mammogram Right W Jez (09/08/2024 9:43 AM BLOWING WEASAND) Anatomical Region Laterality Modality Breast Right Mammography 09/08/2024 9:48 AM BLOWING WEASAND Impressions 09/08/2024 9:57 AM BLOWING WEASAND Questioned RIGHT breast asymmetry has the appearance of benign fibroglandular tissue on diagnostic mammogram. OVERALL FINAL ASSESSMENT: BI-RADS Category 2: Benign. RECOMMENDATION: Annual screening mammography is recommended. Dictated by: Shamir Mena MD The radiology attending physician has personally reviewed this study, and had reviewed and/or edited this written report and agrees with it. Electronically signed by: Aundrea Irwin M.D. Narrative 09/08/2024 9:57 AM BLOWING WEASAND EXAMINATION: RIGHT UNILATERAL DIGITAL DIAGNOSTIC MAMMOGRAM AND [...] Mammogram Bilateral W Jez (08/31/2024 10:46 AM BLOWING WEASAND) Anatomical Region Laterality Modality Breast Bilateral Mammography Narrative 08/31/2024 4:41 PM BLOWING WEASAND Mammogram Technique: Bilateral Digital Breast Tomosynthesis, Bilateral C-view 2D Screening mammogram. Views obtained: bilateral craniocaudal and bilateral mediolateral oblique. Computer Aided Detection was performed. Mammogram Findings: The present examination has been compared to prior imaging studies performed at [facility] on 05/31/2021, 06/17/2022 and 07/14/2023. There [...] compared to prior imaging studies performed at [facility] on 05/31/2021, 06/17/2022 and 07/14/2023. There [...] Need additional imaging evaluation. Montserrat Fajardo NP IM MAMMO PROCEDURES Final Result from Last 3 Months Insurance [facility] [id number] Care Teams Consulting Senior Practice Director Relationship Specialty Start Date End Date Leonarda Olivares DO [address] [place] [address] PCP - General Family Medicine 10/29/22 Darrel Medina III, OD [address] [place] [address] Consulting Physician Optometry 10/29/22 Shamir Redd MD [address] [place] [address] Consulting Physician Neurology 10/29/22
--- OUTSIDE RECORDS SUMMARY | 2024-11-03 08:27 | XMS_ITS | Clinical Summary ---
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 Gender Identity Not on file Sexual Orientation [...] AM CDT Pulse 87 06/22/2017 10:27 AM WATER TANKER DRIVER Temperature 36.5 C (97.7 F) 01/03/2017 8:28 [...] Done Comments Pre-Diabetes and Diabetes Screening 1962 HPV/Cotest (21-29) 1983 PAP SMEAR 1983 CERVICAL CANCER SCREENING 1992 HPV/Cotest (30-65) 1992 PAP SMEAR 1992 FIT-DNA Q 3 years 2007 FIT/FOBT [...] 07/16/2018, 03/20/2017 Medical Devices Implanted Type Area Motion Designer Device Identifier Shelf Expiration Date Model / Serial / Lot Shell Ringlc+ Pc 54mm [id number] - [id number] Implanted:Qty: 1 on 10/14/2012 at [facility] Hip Left: Hip [employer] 09/30/2022 [id number] / / [id number] Liner Epoly Mrom 40mm Sz24 [id number] - [id number] Implanted:Qty: 1 on 10/14/2012 at [facility] Hip Left: Hip [employer] 06/02/2015 [id number] / / [id number] Head Fem Biolox Option 40mm 650-1058 - [id number] Implanted:Qty: 1 on 10/14/2012 by Supa Godwin MD at [facility] Hip Left: Hip [employer] 01/30/2022 650-1058 / / [id number] Stem Fem Tprlc Red/Dis [id number] - [id number] Implanted:Qty: 1 on 10/14/2012 at [facility] Hip Left: Hip [employer] 08/02/2022 [id number] / / [id number] Slv Biolox Delta Optn Type 1 650-9959 - [id number] Implanted:Qty: 1 on 10/14/2012 at [facility] Hip Left: Hip [employer] 04/02/2022 650-1064 / / [id number] Slv Biolox Delta Optn Type 1 650-1068 - [id number] Implanted:Qty: 1 on 01/24/2014 at [facility] Hip Right: Hip [employer] 10/01/2023 650-1065 / / [id number] Shell Ringlc+ Pc 52mm [id number] - [id number] Implanted:Qty: 1 on 01/24/2014 at [facility] Hip Right: Hip [employer] 09/02/2023 [id number] / / [id number] Stem Fem Tprlc R/D Sz9 [id number] - [id number] Implanted:Qty: 1 on 01/24/2014 at [facility] Hip Right: Hip [employer] 09/30/2022 [id number] / / [id number] Description:PROCESSED ON REQ UISITION,[id number]. Liner Arcomxl Rnglc Sz23 [id number] - [id number] Implanted:Qty: 1 on 04/15/2016 by Supa Godwin MD at [facility] Hip Right: Hip [employer] [id number] 02/08/2021 [id number] / / [id number] Description:Both Biomet revi rosa components are processed on requisition,[id number]. Head Fem Biolox Option 36mm 650-1057 - [id number] Implanted:Qty: 1 on 04/15/2016 by Supa Godwin MD at [facility] Hip Right: Hip [employer] [id number] 02/07/2026 650-1057 / / [id number] Explanted Type Area Motion Designer Device Identifier Shelf Expiration Date Model / Serial / Lot Liner Epoly Mrom 36mm Sz23 [id number] - [id number] Implanted:Qty: 1 on 01/24/2014 at [facility] Explanted:Qty: 1 on 04/15/2016 by Supa Godwin MD at [facility] Hip Right: Hip [employer] 07/02/2018 [id number] / / [id number] Head Fem Biolox Option 36mm 650-1057 - [id number] Implanted:Qty: 1 on 01/24/2014 at [facility] Explanted:Qty: 1 on 04/15/2016 by Supa Godwin MD at [facility] Hip Right: Hip [employer] 01/01/2024 650-1057 / / [id number] Procedures Procedure Name Priority Date/Time Associated Diagnosis [...] Most Recently Relevant to Health Maintenance Insurance [employer] [facility] Address: [address] [address] Advance Directives For more information, please contact: [phone] Documents on File Type Date Recorded Patient Stenographer Secretary Expl anation Advance Directive POA 01/01/2017 11:50 [...] 2:43 PM 01/26/2014 4:28 PM Care Teams Director Prospect Relationship Specialty Start Date End Date Kd Abraham MD [address] [place] [phone] PCP - General Internal Medicine 04/06/20
--- OUTSIDE RECORDS SUMMARY | 2024-11-03 08:27 | XMS_ITS ---
Author Organization [facility] Address [address] [place] [address] Phone Care Team Providers Care Business Services Coordinator Name Role Phone Adam BRISCOE OD, Darrel Morton Unavailable [phone] Shamir Redd MD Unavailable [phone] Leonarda Olivares DO Primary Care Provider [phone]- [phone] Active Problems Problem Noted Date Diagnosed Date [...] 03/31/2018 Assessment & Plan (07/11/2024 12:38 PM SENIOR SSIS DEVELOPER): She has stage 2, tremor-predominant PD with [...] baclofen. Possibly consider botulinin. - Continue Rock [employer] boxing and regular exercise - Same trazodone. [...] future. Assessment & Plan (09/02/2022 3:01 PM SENIOR SSIS DEVELOPER): She has stage 2, tremor-predominant PD with [...] PRN baclofen. Possibly consider botulinin. - Continue MOL[place] boxing and regular exercise - May try [...] Same PRN baclofen. Possibly consider botulinin. -continue [place]OL[place] boxing and regular exercise -Start PD Voice [...] study Assessment & Plan (07/23/2021 3:48 PM SENIOR SSIS DEVELOPER): She has stage 2 PD that tremor [...] her symptoms. 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 Assessment & Plan (06/20/2020 2:40 PM SENIOR SSIS DEVELOPER): She has stage 2 PD that tremor [...] Boxing. Assessment & Plan (10/03/2019 10:55 AM SENIOR SSIS DEVELOPER): She has very mild stage 2 PD [...] RSB. Assessment & Plan (09/06/2018 11:43 AM SENIOR SSIS DEVELOPER): She has very mild stage 2 PD [...] 10/14/2012 History of total hip replacement, left 03/14/201 3 HLD (hyperlipidemia) 10/14/2012 HTN (hypertension) 10/14/2012 Current Treatment and Therapy Plans No current plan information found. Past Treatment and Therapy Plans No past plan information found. Radiation Treatments * Course C1 RLIQ BREAST 11/02/2018 - 11/04/2018 Treatment Period Energy Fraction Dose Fractions Total Dose Plans Planned VR RLIQ BRST 11/02/2018 - 11/04/2018 850 3 / 2,550 Reference Points Delivered RL BREAST 2550 11/02/2018 - 11/04/2018 2,550 Resolved Problems Problem Noted Date Diagnosed Date Resolved Date Severe obesity (BMI 35.0-39. 9) with comorbidity 03/20/2017 05/08/2023
--- OUTSIDE RECORDS SUMMARY | 2024-11-03 08:27 | XMS_ITS | Continuity of Care Document ---
Author Organization [facility] Address [address] [place] [address] Phone Care Team Providers Care Farmworker Name Role Phone Nascimento OD, Magdy Unavailable Unavailable Advance Directives Directive Yes / No Effective Date File Name No Information Encounters Encounter Description Practice Location Reason(s) For Visit Diagnoses Date Provider Providers Copied on Encounter [facility], [address], [place], [place], [id number], [place] tel:[phone] [facility] No Information 0 3-200 2 Nascimento OD Magdy. [address] , [address], [place], [address], [place]. tel:[phone] Family History Family Member Type Diagnosis Age At Onset No Information Payers Payer name Insurance type Covered green party ID Authoriza tion(s) No Information Social History [...]
--- OUTSIDE RECORDS SUMMARY | 2024-11-03 08:27 | XMS_ITS | Clinical Summary ---
Author Organization [facility] Address [address] [place] [address] Phone Care Team Providers Care Workers Compensation Manager Name Role Phone Adam BRISCOE, ATUL, Darrel Morton Unavailable [phone] Shamir Redd MD Unavailable [phone] Leonarda Olivares DO Primary Care Provider [phone]- [phone] Allergies Active Allergy Reactions Criticality Noted Date [...] from 09/27/2018:Stage IA(pT1a, pN0(sn), cM0, G2, ER+, [place]+, HER2-) - Signed by Kasi Lobato MD on 10/14/2018 Clinical: Unsigned Abnormal mammogram 08/24/2018 Parkinson disease 03/31/2018 Assessment & Plan (07/11/2024 12:38 PM STRATEGIC SOURCING CONSULTANT): She has stage 2, tremor-predominant PD with [...] stiffness but she takes it rarely since half-way. She has fatigue but avoids caffeine due [...] symptoms and this did improve with semi- half-way She tried escitalopram and noted nausea so [...] symptoms and this did improve with semi- half-way She tried escitalopram and noted nausea so [...] baclofen. Possibly consider botulinin. - Continue [employer] boxing and regular exercise - Same trazodone. [...] she is hopeful this will improve with half-way She tried escitalopram and noted nausea so [...] she is hopeful this will improve with half-way She tried escitalopram and noted nausea so [...] baclofen. Possibly consider botulinin. - Continue [employer] boxing and regular exercise - Same trazodone. - Could consider amantadine in the future. Assessment & Plan (09/02/2022 3:01 PM STRATEGIC SOURCING CONSULTANT): She has stage 2, tremor-predominant PD with [...] Same PRN baclofen. Possibly consider botulinin. -continue [employer] boxing and regular exercise -Start PD Voice [...] study Assessment & Plan (07/23/2021 3:48 PM STRATEGIC SOURCING CONSULTANT): She has stage 2 PD that tremor [...] her symptoms. 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 Assessment & Plan (06/20/2020 2:40 PM STRATEGIC SOURCING CONSULTANT): She has stage 2 PD that tremor [...] Boxing. Assessment & Plan (10/03/2019 10:55 AM STRATEGIC SOURCING CONSULTANT): She has very mild stage 2 PD [...] RSB. Assessment & Plan (09/06/2018 11:43 AM STRATEGIC SOURCING CONSULTANT): She has very mild stage 2 PD [...] Department Care Team Description 09/08/2024 8:41 AM STRATEGIC SOURCING CONSULTANT - 09/08/2024 11:59 PM STRATEGIC SOURCING CONSULTANT Hospital Encounter [facility] - Breast Imaging [address] [place] [address] Abnormality of right breast on screening mammography Discharge Disposition: Discharge to home or self care 09/01/2024 Telephone [facility] Surgery [address] [place] [phone] Josette Mcmahon CMA 08/31/2024 10:05 AM STRATEGIC SOURCING CONSULTANT - 08/31/2024 11:59 PM STRATEGIC SOURCING CONSULTANT Hospital Encounter [facility] - Breast Imaging [address] [place] [address] Encounter for follow-up surveillance of breast cancer Discharge Disposition: Discharge to home or self care 08/31/2024 10:00 AM STRATEGIC SOURCING CONSULTANT Office Visit [facility] Surgery [address] [place] [phone] Montserrat Fajardo NP Malignant neoplasm of 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, estrogen receptor positive (HCC) (Primary Dx); History of breast cancer; History of partial mastectomy of right breast; Encounter for screening mammogram for malignant neoplasm of breast from Last 3 Months Immunizations Immunization Administration Dates Next Due Influenza, [...] HIP ARTHROPLASTY 10/14/[address] Godwin at [facility] HEMORRHOID SURGERY 08/03/2012 - 08/02/2013 REVISION TOTAL HIP ARTHROPLASTY 04/15/2016 failed poly liner with hip subluxation of the right hip. COLONOSCOPY 07/23/2015 TOTAL HIP ARTHROPLASTY 01/24/[address] Godwin at [facility] BREAST BIOPSY 08/03/2016 - 08/02/2017 Left benign BREAST BIOPSY 09/02/2018 Right FOOT SURGERY 01/31/2018 - 03/02/2018 Right for degenerative changes Medical History Medical History Date Comments Hypertension Depression Psoriasis Parkinson's disease (HCC) f/by [facility] Psychophysiological insomnia Breast cancer [...] CDT Gender Identity Female 07/23/2021 10:03 AM STRATEGIC SOURCING CONSULTANT Sexual Orientation Straight 07/23/2021 10 :03 AM STRATEGIC SOURCING CONSULTANT Obstetrics History Para Term AB IAB SAB [...] Comments Blood Pressure 172/109 07/11/2024 11:07 AM STRATEGIC SOURCING CONSULTANT Pulse 91 07/11/2024 11:07 AM STRATEGIC SOURCING CONSULTANT Temperature 36.3 C (97.4 F) 01/02/2023 9:52 AM CDT Respiratory Rate 18 04/08/2022 3:34 PM CDT Oxygen Saturation 98% 04/08/2022 3:34 PM CDT Inhaled Oxygen Concentration - - Weight 78.7 kg (173 lb 9.6 oz) 08/31/2024 10:16 AM STRATEGIC SOURCING CONSULTANT Height 170.2 cm (5' 7 ) 08/31/2024 10:16 AM STRATEGIC SOURCING CONSULTANT Body Mass Index 27.19 08/31/2024 10:16 AM STRATEGIC SOURCING CONSULTANT Plan of Treatment Health Maintenance Due Date [...] 03/20/2017 Pneumococcal vaccine <65 Aged Out 06/15/2015, 07/0 04/2015 No longer eligible based on patient's age to complete this topic Zoster Vaccine Completed 10/22/2018, 07/16/2018 Medical Devices Implanted Type Area Sales And Marketing Analyst Device Identifier Shelf Expiration Date Model / Serial / Lot Shell Ringlc+ Pc Left: Hip [employer] 09/30/2022 [id number] / / [id number] Description:Implanted Type A meghan Sales And Marketing Analyst Device Identifier Expiration Date Model / Serial / Lot Shell Ringlc+ Pc 54mm [id number] - [id number] Implanted: Qty: 1 on 10/14/2012 Hip Left: Hip [employer] 09/30/2022 [id number] / / [id number] Liner Epoly Mrom Left: Hip Description:Liner Epoly Mrom 40mm Sz24 [id number] - [id number] Implanted: Qty: 1 on 10/14/2012 Hip Left: Hip [employer] 06/02/2015 [id number] / Head Fem Biolox Left: Hip Description:Head Fem Biolox Option 40mm 650-1058 - [id number] Implanted: Qty: 1 on 10/14/2012 by Supa Godwin MD Hip Left: Hip [employer] 01/30/2022 [id number] / Stem Fem Tprlc Red/Dis Left: Hip Description:Stem Fem Tprlc R ed/Dis [id number] - [id number] Implanted: Qty: 1 on 10/14/2012 Hip Left: Hip [employer] 08/02/2022 [id number] / / Procedures Procedure Name Priority Date/Time Associated Diagnosis Comments DIAGNOSTIC MAMMOGRAM RIGHT W JEZ Schedule Routine, Read Routine (OP Routine) 09/08/2024 9:43 AM STRATEGIC SOURCING CONSULTANT Abnormality of right breast on screening mammography SCREENING MAMMOGRAM BILATERAL W JEZ Schedule Routine, Read Routine (OP Routine) 08/31/2024 10:46 AM STRATEGIC SOURCING CONSULTANT Encounter for follow-up surveillance of breast cancer from Last 3 Months Results * Diagnostic Mammogram Right W Jez (09/08/2024 9:43 AM STRATEGIC SOURCING CONSULTANT) Anatomical Region Laterality Modality Breast Right Mammography 09/08/2024 9:48 AM STRATEGIC SOURCING CONSULTANT Impressions 09/08/2024 9:57 AM STRATEGIC SOURCING CONSULTANT Questioned RIGHT breast asymmetry has the appearance of benign fibroglandular tissue on diagnostic mammogram. OVERALL FINAL ASSESSMENT: BI-RADS Category 2: Benign. RECOMMENDATION: Annual screening mammography is recommended. Dictated by: Shamir Mena MD The radiology attending physician has personally reviewed this study, and had reviewed and/or edited this written report and agrees with it. Electronically signed by: Aundrea Irwin M.D. Narrative 09/08/2024 9:57 AM STRATEGIC SOURCING CONSULTANT EXAMINATION: RIGHT UNILATERAL DIGITAL DIAGNOSTIC MAMMOGRAM AND [...] by: Aundrea Irwin M.D. Montserrat Fajardo NP [facility] MAMMO PROCEDURES Final Result * Screening Mammogram Bilateral W Jez (08/31/2024 10:46 AM STRATEGIC SOURCING CONSULTANT) Anatomical Region Laterality Modality Breast Bilateral Mammography Narrative 08/31/2024 4:41 PM STRATEGIC SOURCING CONSULTANT Mammogram Technique: Bilateral Digital Breast Tomosynthesis, Bilateral C-view 2D Screening mammogram. Views obtained: bilateral craniocaudal and bilateral mediolateral oblique. Computer Aided Detection was performed. Mammogram Findings: The present examination has been compared to prior imaging studies performed at [facility] on 05/31/2021, 06/17/2022 and 07/14/2023. There [...] compared to prior imaging studies performed at [facility] on 05/31/2021, 06/17/2022 and 07/14/2023. There [...] 0: Incomplete: Need additional imaging evaluation. Montserrat Maricarmen Hunsel BOTTLING ATTENDANT IMG MAMMO PROCEDURES Final Result from Last 3 Months Insurance [facility] [id number] Care Teams Workers Compensation Manager Relationship Specialty Start Date End Date Leonarda Olivares DO [address] [place] [address] PCP - General Family Medicine 10/29/22 Darrel Medina III, OD [address] [place] [address] Consulting Physician Optometry 10/29/22 Shamir Redd MD [address] [place] [address] Consulting Physician Neurology 10/29/22
--- OUTSIDE RECORDS SUMMARY | 2024-11-03 08:28 | XMS_ITS | Clinical Summary ---
Author Organization [facility] Address [address] [place] [address] Care Team Providers Care Percolator Operator Name Role Phone Kd Abraham MD Primary Care Provider [phone] Allergies Active Allergy Reactions Criticality Noted Date [...] nail, initial encounter 03/06/2020 Severe obesity (BMI 35.0-39.9) with comorbidity 03/20/2017 Psychophysiological insomnia 01/02/2017 Abnormal mammogram 09/04/2016 Allergic rhinitis 03/13/2016 Hypothyroidism 03/13/2016 Parkinson disease ([facility]) 02/18/2016 Primary osteoarthritis of both hips 06/15/2015 Hip joint replacement by other means 02/21/2015 Psoriatic arthritis ([facility]) 02/08/2015 Overview (01/09/2020): Diagnosed August [...] Vaccines (1 of 2) 2012 COVID-19 Vaccine (1 - 2023- season) 2024 Influenza Adult (#1) [...] patient's age to complete this topic Insurance Care Teams Percolator Operator Relationship Specialty Start Date End Date Kd Abraham MD [address] [place] [address] PCP - General INTERNAL MEDICINE 01/06/20
[2024-11-03 10:27] LABS: Hematocrit 43.6 % (37.0-47.0); Hemoglobin 13.6 g/dL (12.0-15.0); Mean Corpuscular HGB Conc 31.2 g/dl (32-36); Mean Corpuscular Hemoglobin 28.2 pg (26-34); Mean Corpuscular Volume 90.5 fl (80-100); Mean Platelet Volume 9.5 fl (7.4-10.4); Platelet Count Result 411 k/mm3 (150-375); Red Blood Count 4.82 M/mm3 (4.2-5.4); White Blood Count 5.3 K/mm3 (4.5-10.0)
[2024-11-03 12:02] LABS: Alanine Aminotransferase 7 U/L (6-35); Albumin Level 4.4 g/dL (3.5-5.1); Alkaline Phosphatase 108 U/L (38-126); Anion Gap 9 mmol/L (4-12); Aspartate Amino Transferase 75 U/L (14-36); Bilirubin,Total 0.6 mg/dL (0.2-1.3); Blood Urea Nitrogen 15 mg/dL (7-17); Calcium 9.1 mg/dL (8.4-10.2); Carbon Dioxide 28 mmol/L (22-30); Chloride 103 mmol/L (98-107); Cholesterol 150 mg/dL (0-200); Estimated Glomerular Filt Rate > 60; Glucose 101 mg/dL (65-110); HDL Direct 64 mg/dL; Potassium 4.3 mmol/L (3.4-5.0); Sodium 140 mmol/L (137-145); Triglycerides 68 mg/dL (<150)
[2024-11-03 12:13] LABS: LDL Cholesterol Direct 63 mg/dL
[2024-11-08 11:13] LABS: Vitamin D 1,25 (OH)2 Total 28 pg/mL (18-72); Vitamin D2 1,25 (OH)2 <8 pg/mL; Vitamin D3 1,25 (OH)2 28 pg/mL
== END 2024-11-03 08:21 | disposition home or self-care (01) ==
LOC: ANHGOSHLAB 08:21
PROVIDERS: PCP Family Medicine; Visit Provider Family Medicine
DX: E66.3 Overweight (principal); E55.9 Vitamin D deficiency, unspecified; E03.9 Hypothyroidism, unspecified; I10 Essential (primary) hypertension; E78.5 Hyperlipidemia, unspecified
CPT/HCPCS: 36415; 80053; 80061; 82652; 83036; 84439; 84443; 85027

== ENCOUNTER 2024-12-20 13:47 | Outpatient (CLI) | payer OTHER, SELFPAY ==
--- OUTSIDE RECORDS SUMMARY | 2024-12-20 13:57 | XMS_ITS ---
Author Organization [facility] Address [address] [place] [address] Phone Care Team Providers Care Intern Brand Name Role Phone Adam BRISCOE OD, Darrel Morton Unavailable [phone] Shamir Redd MD Unavailable [phone] Leonarda Olivares DO Primary Care Provider [phone]- [phone] Active Problems Problem Noted Date Diagnosed Date [...] from 09/27/2018:Stage IA(pT1a, pN0(sn), cM0, G2, ER+, [place]+, HER2-) - Signed by Kasi Lobato MD on 10/14/2018 Clinical: Unsigned Abnormal mammogram 08/24/2018 Parkinson disease 03/31/2018 Assessment & Plan (07/11/2024 12:38 PM INVENTORY ASSOCIATE AND DRIVER): She has stage 2, tremor-predominant PD with [...] stiffness but she takes it rarely since longterm. She has fatigue but avoids caffeine due [...] symptoms and this did improve with semi- longterm She tried escitalopram and noted nausea so [...] symptoms and this did improve with semi- longterm She tried escitalopram and noted nausea so [...] baclofen. Possibly consider botulinin. - Continue [employer] boxing and regular exercise - Same trazodone. [...] she is hopeful this will improve with longterm She tried escitalopram and noted nausea so [...] she is hopeful this will improve with longterm She tried escitalopram and noted nausea so [...] future. Assessment & Plan (09/02/2022 3:01 PM INVENTORY ASSOCIATE AND DRIVER): She has stage 2, tremor-predominant PD with [...] PRN baclofen. Possibly consider botulinin. - Continue [employer] boxing and regular exercise - May try [...] Same PRN baclofen. Possibly consider botulinin. -continue [employer] boxing and regular exercise -Start PD Voice [...] study Assessment & Plan (07/23/2021 3:48 PM INVENTORY ASSOCIATE AND DRIVER): She has stage 2 PD that tremor [...] her symptoms. 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 Assessment & Plan (06/20/2020 2:40 PM INVENTORY ASSOCIATE AND DRIVER): She has stage 2 PD that tremor [...] Boxing. Assessment & Plan (10/03/2019 10:55 AM INVENTORY ASSOCIATE AND DRIVER): She has very mild stage 2 PD [...] RSB. Assessment & Plan (09/06/2018 11:43 AM INVENTORY ASSOCIATE AND DRIVER): She has very mild stage 2 PD [...]
--- OUTSIDE RECORDS SUMMARY | 2024-12-20 13:58 | XMS_ITS | Encounter Summary ---
Author Organization [facility] Address [facility] [place] [address] Care Team Providers Care Stock Speculator Name Role Phone Mario Albarado MD Primary Care Provider [phone] Kd Abraham MD Primary Care Provider [phone] Encounter Details Date Type Department Care Team (Late st Contact Info) Description 12/31/2012 Abstract [facility] CONVERSION [address] [place] [address] , Generic Conversion, Social History Tobacco Use [...] on filedocumented in this encounter Care Teams Stock Speculator Relationship Specialty Start Date End Date Mario Albarado MD PCP - General 06/24/11 01/05/20 Kd Abraham MD [address] [place] [address] PCP - General INTERNAL MEDICINE 01/06/20 documented as of this encounter
--- OUTSIDE RECORDS SUMMARY | 2024-12-20 13:58 | XMS_ITS | Clinical Summary ---
Author Organization [facility] Address [address] [place] [address] Phone Care Team Providers Care Electronics Specialist Name Role Phone Adam BRISCOE, ATUL, Darrel Morton Unavailable [phone] Shamir Redd MD Unavailable [phone] Leonarda Olivares DO Primary Care Provider [phone]- [phone] Allergies Active Allergy Reactions Criticality Noted Date [...] (SYNTHROID) 88 mcg tablet 09/02/19 23 Active leg brace misc Custom orthotic for [...] NIGHT 90 tablet 3 08/07/19 25 Active traZODone (DESYREL) 100 mg tablet TAKE 1.5 TABS AT BEDTIME FOR ONE WEEK AND MAY INCREASE TO 2 TABS AT BEDTIME. 180 tablet 3 12/19/19 25 Active traZODone (DESYREL) 100 mg tablet Take 1.5 tabs at bedtime for one week and may increase to 2 tabs at bedtime. 180 tablet 3 05/08/20 23 025 Discontinued Active Problems Problem Noted Date [...] from 09/27/2018:Stage IA(pT1a, pN0(sn), cM0, G2, ER+, [place]+, HER2-) - Signed by Kasi Lobato MD on 10/14/2018 Clinical: Unsigned Abnormal mammogram 08/24/2018 Parkinson disease 03/31/2018 Assessment & Plan (07/11/2024 12:38 PM CAREER TECHNICAL EDUCATION TEACHER): She has stage 2, tremor-predominant PD with [...] baclofen. Possibly consider botulinin. - Continue [employer] boxing and regular exercise - Same trazodone. - Could consider amantadine in the future. Assessment & Plan (09/02/2022 3:01 PM CAREER TECHNICAL EDUCATION TEACHER): She has stage 2, tremor-predominant PD with [...] Same PRN baclofen. Possibly consider botulinin. -continue [employer] boxing and regular exercise -Start PD Voice [...] study Assessment & Plan (07/23/2021 3:48 PM CAREER TECHNICAL EDUCATION TEACHER): She has stage 2 PD that tremor [...] her symptoms. 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 If possible for her to bridge worker part of the time, that would [...] her symptoms. 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 Assessment & Plan (06/20/2020 2:40 PM CAREER TECHNICAL EDUCATION TEACHER): She has stage 2 PD that tremor [...] Boxing. Assessment & Plan (10/03/2019 10:55 AM CAREER TECHNICAL EDUCATION TEACHER): She has very mild stage 2 PD [...] RSB. Assessment & Plan (09/06/2018 11:43 AM CAREER TECHNICAL EDUCATION TEACHER): She has very mild stage 2 PD [...] HIP ARTHROPLASTY 10/14/[address] Godwin at [facility] HEMORRHOID SURGERY 08/03/2012 - 08/02/2013 REVISION TOTAL HIP ARTHROPLASTY 04/15/2016 failed poly liner with hip subluxation of the right hip. COLONOSCOPY 07/23/2015 TOTAL HIP ARTHROPLASTY 01/24/[address] Godwin at [facility] BREAST BIOPSY 08/03/2016 - 08/02/2017 Left benign BREAST BIOPSY 09/02/2018 Right FOOT SURGERY 01/31/2018 - 03/02/2018 Right for degenerative changes Medical History Medical History Date Comments Hypertension Depression Psoriasis Parkinson's disease (HCC) f/by [facility] Psychophysiological insomnia Breast cancer ([facility]) 09/02/2018 DCIS Thyroid disease Family History Medical [...] CDT Gender Identity Female 07/23/2021 10:03 AM CAREER TECHNICAL EDUCATION TEACHER Sexual Orientation Straight 07/23/2021 10 :03 AM CAREER TECHNICAL EDUCATION TEACHER Obstetrics History Para Term AB IAB SAB [...] Comments Blood Pressure 172/109 07/11/2024 11:07 AM CAREER TECHNICAL EDUCATION TEACHER Pulse 91 07/11/2024 11:07 AM CAREER TECHNICAL EDUCATION TEACHER Temperature 36.3 C (97.4 F) 01/02/2023 9:52 AM CDT Respiratory Rate 18 04/08/2022 3:34 PM CDT Oxygen Saturation 98% 04/08/2022 3:34 PM CDT Inhaled Oxygen Concentration - - Weight 78.7 kg (173 lb 9.6 oz) 08/31/2024 10:16 AM CAREER TECHNICAL EDUCATION TEACHER Height 170.2 cm (5' 7 ) 08/31/2024 10:16 AM CAREER TECHNICAL EDUCATION TEACHER Body Mass Index 27.19 08/31/2024 10:16 AM CAREER TECHNICAL EDUCATION TEACHER Plan of Treatment Health Maintenance Due Date Last Done Comments Colon Cancer Screening-Colonoscopy 1962 Hepatitis C Screening 1962 Hepatitis B Screening 1980 Regular Well Visit/Exam 18-64 1980 Depression Screening 01/03/2024 01/02/2023 Influenza Vaccine (Season Ended) 2025 05/03/2018, 05/14/2017, 05/14/2017, Additional history exists Breast Cancer Screening-Mammogram 08/31/2025 08/31/2024, 07/14/2023, 06/17/2022, Additional history exists DTaP/Tdap/Td Vaccine (3 - Td or Tdap) 07/16/2028 07/16/2018, 03/20/2017 Pneumococcal vaccine <65 Aged Out 06/15/2015, 04/2015 No longer eligible based on patient's age to complete this topic Zoster Vaccine Completed 10/22/2018, 07/16/2018 Medical Devices Implanted Type Area Hand Candy Molder Device Identifier Shelf Expiration Date Model / Serial / Lot Shell Ringlc+ Pc Left: Hip [employer] 09/30/2022 [id number] / / [id number] Description:Implanted Type A meghan Hand Candy Molder Device Identifier Expiration Date Model / Serial / Lot Shell Ringlc+ Pc 54mm [id number] - [id number] Implanted: Qty: 1 on 10/14/2012 Hip Left: Hip [employer] 09/30/2022 [id number] / / [id number] Liner Epoly Mrom Left: Hip Description:Liner Epoly Mrom 40mm Sz24 [id number] - [id number] Implanted: Qty: 1 on 10/14/2012 Hip Left: Hip [employer] 06/02/2015 [id number] / Head Fem Biolox Left: Hip Description:Head Fem [employer]ox Option 40mm 650-1058 - [id number] Implanted: Qty: 1 on 10/14/2012 by Supa Godwin MD Hip Left: Hip [employer] 01/30/2022 [id number] / Stem Fem Tprlc Red/Dis Left: Hip Description:Stem Fem Tprlc R ed/Dis [id number] - [id number] Implanted: Qty: 1 on 10/14/2012 Hip Left: Hip [employer] 08/02/2022 [id number] / / Procedures Procedure Name Priority Date/Time Associated Diagnosis Comments SCREENING MAMMOGRAM BILATERAL W JEZ Schedule Routine, Read Routine (OP Routine) 08/31/2024 10:46 AM CAREER TECHNICAL EDUCATION TEACHER Encounter for follow-up surveillance of breast cancer from Last 3 Months or Most Recently Relevant to Health Maintenance Results * Screening Mammogram Bilateral W Jez (08/31/2024 10:46 AM CAREER TECHNICAL EDUCATION TEACHER) Anatomical Region Laterality Modality Breast Bilateral Mammography Narrative 08/31/2024 4:41 PM CAREER TECHNICAL EDUCATION TEACHER Mammogram Technique: Bilateral Digital Breast Tomosynthesis, Bilateral C-view 2D Screening mammogram. Views obtained: bilateral craniocaudal and bilateral mediolateral oblique. Computer Aided Detection was performed. Mammogram Findings: The present examination has been compared to prior imaging studies performed at [facility] on 05/31/2021, 06/17/2022 and 07/14/2023. There are [...] compared to prior imaging studies performed at [facility] on 05/31/2021, 06/17/2022 and 07/14/2023. There are [...] PROCEDURES Final Result from Last 3 Months or Most Recently Relevant to Health Maintenance Insurance [facility] [id number] [facility] [id number] Member Subscriber Plan / Payer (Ef fective 2021-Present) Name:ElzaJarad Member ID:[id number] Relation to Subscriber:Self Name:Jarad Bertrand Subscriber ID:[id number] Payer ID:[id number] Type:[employer] HMO/PPO Address: [address] [place] [id number] Care Teams Electronics Specialist Relationship Specialty Start Date End Date Leonarda Olivares DO [address] [place] [address] PCP - General Family Medicine 10/29/22 Darrel Medina III, OD [address] [place] [address] Consulting Physician Optometry 10/29/22 Shamir Redd MD [address] [place] [address] Consulting Physician Neurology 10/29/22
--- OUTSIDE RECORDS SUMMARY | 2024-12-20 13:58 | XMS_ITS | Clinical Summary ---
Author Organization [facility] Address [address] [place] [address] Phone Care Team Providers Care Licensing Representative Name Role Phone Kd Abraham MD Primary [...] 5 7 Active fluticasone (FLONASE) 50 mcg/spray [place], Suspension Administer 2 Sprays in each nostril [...] Kaiser [place]: [place] [address] [address] [facility] [place] [address] Other: Dr Teodora Figueroa MD Problem Noted [...] on file Legal Sex Female 4:29 AM SURGICAL SERVICES ASST Gender Identity Not on file Sexual Orientation [...] AM CDT Pulse 87 06/22/2017 10:27 AM SURGICAL SERVICES ASST Temperature 36.5 C (97.7 F) 01/03/2017 8:28 [...] and Diabetes Screening 1962 HPV/Cotest (21-29) 1983 CERVICAL CANCER SCREENING 1992 HPV/Cotest (30-65) [...] 07/16/2018, 03/20/2017 Medical Devices Implanted Type Area Grass Farm Laborer Device Identifier Shelf Expiration Date Model / Serial / Lot Shell Ringlc+ Pc 54mm [id number] - [id number] Implanted:Qty: 1 on 10/14/2012 at [facility] Hip Left: Hip [employer] 09/30/2022 [id number] / / [id number] Liner Epoly Mrom 40mm Sz24 Ep-[id number] - [id number] Implanted:Qty: 1 on 10/14/2012 at [facility] Hip Left: Hip [employer] 06/02/2015 [id number] / / [id number] Head Fem Biolox Option 40mm 650-1058 - [id number] Implanted:Qty: 1 on 10/14/2012 by Supa Godwin MD at [facility] Hip Left: Hip [employer] 01/30/2022 650-1058 / / [id number] Stem Fem Tprlc Red/Dis 51-365655 - [id number] Implanted:Qty: 1 on 10/14/2012 at [facility] Hip Left: Hip [employer] 08/02/2022 [id number] / / [id number] Slv Biolox Delta Optn Type 1 650-8606 - [id number] Implanted:Qty: 1 on 10/14/2012 at [facility] Hip Left: Hip [employer] 04/02/2022 650-1064 / / [id number] Slv Biolox Delta Optn Type 1 650-1067 - [id number] Implanted:Qty: 1 on 01/24/2014 at [facility] Hip Right: Hip [employer] 10/01/2023 650-1065 / / [id number] Shell Ringlc+ Pc 52mm [id number] - [id number] Implanted:Qty: 1 on 01/24/2014 at [facility] Hip Right: Hip [employer] 09/02/2023 [id number] / / [id number] Stem Fem Tprlc R/D Sz9 51-812112 - [id number] Implanted:Qty: 1 on 01/24/2014 at [facility] Hip Right: Hip [employer] 09/30/2022 51-908773 / / [id number] Description:PROCESSED ON REQ UISITION,0051290. Liner Arcomxl Rnglc Sz23 Xl-138760 - [id number] Implanted:Qty: 1 on 04/15/2016 by Supa Godwin MD at [facility] Hip Right: Hip [employer] [id number] 02/08/2021 XL-310526 / / [id number] Description:Both Biomet revi rosa components are processed on requisition,5979989. Head Fem Biolox Option 36mm 650-1057 - [id number] Implanted:Qty: 1 on 04/15/2016 by Supa Godwin MD at [facility] Hip Right: Hip [employer] [id number] 02/07/2026 650-1057 / / [id number] Explanted Type Area Grass Farm Laborer Device Identifier Shelf Expiration Date Model / Serial / Lot Liner Epoly Mrom 36mm Sz23 Ep-[id number] - [id number] Implanted:Qty: 1 on 01/24/2014 at [facility] Explanted:Qty: 1 on 04/15/2016 by Supa Godwin MD at [facility] Hip Right: Hip [employer] 07/02/2018 EP-[id number] / / [id number] Head Fem Biolox Option 36mm 650-1057 - [id number] Implanted:Qty: 1 on 01/24/2014 at [facility] Explanted:Qty: 1 on 04/15/2016 by Supa Godwin MD at [facility] Hip Right: Hip [employer] 01/01/2024 650-5134 / / [id number] Procedures Procedure Name Priority Date/Time Associated Diagnosis [...] Most Recently Relevant to Health Maintenance Insurance [facility] Advance Directives For more information, please contact: [phone] Documents on File Type Date Recorded Patient Employment Consultant Expl anation Advance Directive POA 01/01/2017 11:50 [...] 2:43 PM 01/26/2014 4:28 PM Care Teams Licensing Representative Relationship Specialty Start Date End Date Kd Abraham MD [address] [place] [phone] PCP - General Internal Medicine 04/06/20
--- OUTSIDE RECORDS SUMMARY | 2024-12-20 13:58 | XMS_ITS | Clinical Summary ---
Author Organization [facility] Address [address] [place] [address] Care Team Providers Care Broadcast Traffic Coordinator Name Role Phone Kd Abraham MD Primary Care Provider [phone] Allergies Active Allergy Reactions Criticality Noted Date [...] Allergic rhinitis 03/13/2016 Hypothyroidism 03/13/2016 Parkinson disease ([facility]) 02/18/2016 Primary osteoarthritis of both hips 06/15/2015 Hip joint replacement by other means 02/21/2015 Psoriatic arthritis ([facility]) 02/08/2015 Overview (01/09/2020): Diagnosed August [address] Daniel[address] Psoriasis, diffuse arthralgias, and sausage digits. On immunosuppressants. Migraines 10/15/2012 Anxiety and depression 10/14/2012 HLD (hyperlipidemia) 10/14/2012 HTN (hypertension) 10/14/2012 Immunizations Immunization Administration Dates Next Due Influenza (Generic) 05/14/2017,12/10/2014,2012,05/16/2012 [...] 2002 Zoster Vaccines (1 of 2) 2012 Pneumococcal Vaccine: 50+ Years (3 of 3 - PCV20 or PCV21) 06/15/2020 06/15/2015, 02/08/2015 COVID-19 Vaccine (1 - 2023-2 5 season) 2024 DTaP, Tdap and Td Vaccines ( 2 - Td or Tdap) 03/20/2027 03/20/2017 RSV Immunization or 60+ Years (1 - 1-dose 75+ series) 2037 Meningococcal B Vaccine Aged Out No l onger eligible based on patient's age to complete this topic Meningococcal Vaccine Aged Out No shaunna pierce eligible based on patient's age to complete this topic RSV Immunizations Under 20 Months Aged Out No longer eligible b ased on patient's age to complete this topic Insurance [employer]Have[employer] OPEN ACCESS [facility] Care Teams Broadcast Traffic Coordinator Relationship Specialty Start Date End Date Kd Abraham MD [address] [place] [phone] PCP - General INTERNAL MEDICINE 01/06/20
--- OUTSIDE RECORDS SUMMARY | 2024-12-20 13:58 | XMS_ITS | Referral Summary ---
Author Organization [facility] Address [address] [place] [address] Phone Care Team Providers Care Charge Authorizer Name Role Phone Adam BRISCOE, ATUL, Darrel Morton Unavailable [phone]- [phone] Shamir Redd MD Unavailable [phone] Leonarda Olivares DO Primary Care Provider +1- [phone] Allergies Active Allergy Reactions Criticality Noted Date [...] from 09/27/2018:Stage IA(pT1a, pN0(sn), cM0, G2, ER+, NM+, HER2-) - Signed by Kasi Lobato MD on 10/14/2018 Clinical: Unsigned Abnormal mammogram 08/24/2018 Parkinson disease 03/31/2018 Assessment & Plan (07/11/2024 12:38 PM THIRD STEEL POURER): She has stage 2, tremor-predominant PD with [...] stiffness but she takes it rarely since chcf. She has fatigue but avoids caffeine due [...] symptoms and this did improve with semi- chcf She tried escitalopram and noted nausea so [...] symptoms and this did improve with semi- chcf She tried escitalopram and noted nausea so [...] she is hopeful this will improve with chcf She tried escitalopram and noted nausea so [...] she is hopeful this will improve with chcf She tried escitalopram and noted nausea so [...] baclofen. Possibly consider botulinin. 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 - Could consider amantadine in the future. Assessment & Plan (09/02/2022 3:01 PM THIRD STEEL POURER): She has stage 2, tremor-predominant PD with [...] Same PRN baclofen. Possibly consider botulinin. -continue ICU Metrix boxing and regular exercise -Start PD Voice [...] study Assessment & Plan (07/23/2021 3:48 PM THIRD STEEL POURER): She has stage 2 PD that tremor [...] her symptoms. If possible for her to grain oilseed or pasture farm worker part of the time, that [...] 4 hours. If possible for her to grain oilseed or pasture farm worker part of the time, that [...] her symptoms. If possible for her to grain oilseed or pasture farm worker part of the time, that [...] exercising. Assessment & Plan (06/20/2020 2:40 PM THIRD STEEL POURER): She has stage 2 PD that tremor [...] Boxing. Assessment & Plan (10/03/2019 10:55 AM THIRD STEEL POURER): She has very mild stage 2 PD [...] RSB. Assessment & Plan (09/06/2018 11:43 AM THIRD STEEL POURER): She has very mild stage 2 PD [...] CDT Gender Identity Female 07/23/2021 10:03 AM THIRD STEEL POURER Sexual Orientation Straight 07/23/2021 10 :03 AM THIRD STEEL POURER Last Filed Vital Signs Vital Sign Reading Time Taken Comments Blood Pressure 172/109 07/11/2024 11:07 AM THIRD STEEL POURER Pulse 91 07/11/2024 11:07 AM THIRD STEEL POURER Temperature 36.3 C (97.4 F) 01/02/2023 9:52 AM CDT Respiratory Rate 18 04/08/2022 3:34 PM CDT Oxygen Saturation 98% 04/08/2022 3:34 PM CDT Inhaled Oxygen Concentration - - Weight 78.7 kg (173 lb 9.6 oz) 08/31/2024 10:16 AM THIRD STEEL POURER Height 170.2 cm (5' 7 ) 08/31/2024 10:16 AM THIRD STEEL POURER Body Mass Index 27.19 08/31/2024 10:16 AM THIRD STEEL POURER Plan of Treatment Not on file Medical Devices Implanted Type Area Derrick Car Operator Device Identifier Shelf Expiration Date Model / Serial / Lot Shell Ringlc+ Pc Left: Hip [employer] Inc 09/30/2022 [id number] / / [id number] Description:Implanted Type A meghan Derrick Car Operator Device Identifier Expiration Date Model / Serial / Lot Shell Ringlc+ Pc 54mm [id number] - [id number] Implanted: Qty: 1 on 10/14/2012 Hip Left: Hip [employer] 09/30/2022 [id number] / / [id number] Liner Epoly Mrom Left: Hip Description:Liner Epoly Mrom 40mm Sz24 Ep-215402 - [id number] Implanted: Qty: 1 on 10/14/2012 Hip Left: Hip [employer] 06/02/2015 EP-[id number] / Head Fem Biolox Left: Hip Description:Head Fem Biolox Option 40mm 650-1058 - [id number] Implanted: Qty: 1 on 10/14/2012 by Supa Godwin MD Hip Left: Hip [employer] 01/30/2022 650-1058 / Stem Fem Tprlc Red/Dis Left: Hip Description:Stem Fem Tprlc R ed/Dis 51-221111 - [id number] Implanted: Qty: 1 on 10/14/2012 Hip Left: Hip [employer] 08/02/2022 51-648598 / / Procedures Procedure Name Priority Date/Time Associated Diagnosis Comments SCREENING MAMMOGRAM BILATERAL W RENE Schedule Routine, Read Routine (OP Routine) 08/31/2024 10:46 AM THIRD STEEL POURER Encounter for follow-up surveillance of breast cancer from Last 3 Months or Most Recently Relevant to Health Maintenance Results * Screening Mammogram Bilateral W Rene (08/31/2024 10:46 AM THIRD STEEL POURER) Anatomical Region Laterality Modality Breast Bilateral Mammography Narrative 08/31/2024 4:41 PM THIRD STEEL POURER Mammogram Technique: Bilateral Digital Breast Tomosynthesis, Bilateral C-view 2D Screening mammogram. Views obtained: bilateral craniocaudal and bilateral mediolateral oblique. Computer Aided Detection was performed. Mammogram Findings: The present examination has been compared to prior imaging studies performed at [facility] on 05/31/2021, 06/17/2022 and [...] prior imaging studies performed at [facility] on 05/31/2021, 06/17/2022 and [...] CATEGORY 0: Incomplete: Need additional imaging evaluation. us Montserrat Fajardo NP IMG MAMMO PROCEDURES Final Result from Last 3 Months or Most Recently Relevant to Health Maintenance Insurance [facility] [id number] Care Teams Charge Authorizer Relationship Specialty Start Date End Date Leonarda Olivares DO [address] [place] [address] PCP - General Family Medicine 10/29/22 Darrel Medina III, OD [address] [place] [address] Consulting Physician Optometry 10/29/22 Shamir Redd MD [address] [place] [address] Consulting Physician Neurology 10/29/22
--- OUTSIDE RECORDS SUMMARY | 2024-12-20 13:58 | XMS_ITS | Patient Health Record ---
Author Organization [facility] Address [address] [facility] [address] [place], [place] [id number] Care Team Providers Care Innersole Maker Name Role Phone MUReaganLAURO Primary Care Provider Cuauhtemoc Blair Unavailable [phone] REASON FOR REFERRAL No Information MEDICATIONS Medication [...] Notes Problem Polyarthralgia (719.49) Active confirmed Polyarthralgia (47389911) Problem Myalgia (729.1) Active confirmed Myalgi a (32450439) Problem POLYARTHRITIS (716.59) Active confirmed Polyarthritis (578896814) Problem LOW BACK PAIN (724.2) Active confirmed Low back pain (011027828) Problem Psoriasis (696.1) Active confirmed Psor iasis (9149264) Problem Psoriatic Arthritis (696.0) Active confirmed Psoriatic arthritis (852538669) Problem MONITOR MED (V58.69) Active confirmed Long-term drug therapy (274352679) Problem SCREENING-PULMONA RY TB (V74.1) Active confirmed Tuberculosis screening (538610722) Problem Psoriatic arthritis (L40.50) Active confirmed 88834825 Problem Other long term care administrator (current) drug therapy (Z79.899) Active confirmed 498667202 Problem moth exterminator current use of non-steroidal anti-inflammatori es (NSAID) (Z79.1) Active confirmed 146297963 Problem Pain in joints of both feet (M79.671) Active confirmed Pain in limb (65862458) Problem Never smoked cigarettes (Z78.9) Active confirmed 137724764 Problem Cervicalgia (M54.2) Active confirmed Cervicalgia (81584930) Problem Tremors of nervous system (R25.1) Active confirmed 31831533 Problem Parkinsons disease (G20) Active confirmed 72587300 PLAN OF TREATMENT Pending Test Test Name [...] Insured Coverage Start Date Coverage End Date [employer] OPEN ACCESS [address] [place] [address] [id number] Anastasiya Bertrand Self - patient is the [...]
[2024-12-20 15:10] LABS: Basophils Percent Auto 0.4 % (0.2-1.2); Eosinophils Absolute Auto 0.2 K/mm3 (0-0.3); Eosinophils Percent Auto 2.4 % (0-4.4); Hematocrit 40.3 % (37.0-47.0); Hemoglobin 12.6 g/dL (12.0-15.0); Immature Granulocyte Absolute 0.03 K/mm3 (0.00-0.031); Immature Granulocyte Percent A 0.4 % (0-0.5); Lymphocytes Percent Auto 15.4 % (18.3-44.2); Mean Corpuscular HGB Conc 31.3 g/dl (32-36); Mean Corpuscular Hemoglobin 27.8 pg (26-34); Mean Platelet Volume 9.3 fl (7.4-10.4); Monocytes Absolute Auto 0.8 K/mm3 (0.1-0.6); Monocytes Percent Auto 9.3 % (2.6-8.5); Neutrophils Absolute Auto 6.1 K/mm3 (1.3-6.7); Neutrophils Percent Auto 72.1 % (45.5-73.1); Platelet Count Result 333 k/mm3 (150-375); Red Blood Count 4.53 M/mm3 (4.2-5.4); Red Cell Distribution Width 13.7 % (11.5-14.5); White Blood Count 8.5 K/mm3 (4.5-10.0)
[2024-12-20 15:18] LABS: Add Urine Microscopic? NO; Appearance Urine Clear (Clear); Bilirubin Urine Negative (Negative); Blood Urine Negative (Negative); Color Urine Yellow (Yellow); Glucose Urine UA Negative (Negative); Ketones Urine Trace mg/dL (Negative); Leukocyte Esterase Ur Negative LEU/UL (Negative); Nitrate Urine Negative (Negative); Protein Urine Negative (Negative); Specific Grav Ur 1.024 (1.001-1.035); Urobilinogen Urine 0.2 mg/dL (<2.0)
[2024-12-20 15:24] LABS: Albumin Level 4.2 g/dL (3.5-5.1); Anion Gap 6 mmol/L (4-12); Blood Urea Nitrogen 20 mg/dL (7-17); Calcium 9.1 mg/dL (8.4-10.2); Carbon Dioxide 31 mmol/L (22-30); Chloride 103 mmol/L (98-107); Estimated Glomerular Filt Rate > 60; Glucose 91 mg/dL (65-110); Potassium 4.2 mmol/L (3.4-5.0); Sodium 140 mmol/L (137-145)
[2024-12-20 15:26] LABS: Prothrombin Time 13.6 Seconds (11.1-14.7)
[2024-12-20 15:27] LABS: Partial Thromboplastin Time 30.5 Seconds (22.3-36.8)
[2024-12-20 15:28] LABS: Urine Cotinine NEGATIVE
[2024-12-20 16:24] LABS: MRSA (PCR) NOT DETECTED (NOT DETECTE)
== END 2024-12-20 13:48 | disposition home or self-care (01) ==
LOC: ANHSURGERY 13:51
PROVIDERS: PCP Family Medicine; Visit Provider Orthopaedic Surgery
DX: Z01.812 Encounter for preprocedural laboratory examination (principal); M17.11 Unilateral primary osteoarthritis, right knee
CPT/HCPCS: 80048; 80307; 81003; 82040; 85025; 85610; 85730; 86850; 86900; 86901; 87641

== ENCOUNTER 2025-01-03 00:45 | Day surgery (SDC) | payer OTHER, SELFPAY ==
[2024-12-20 14:17] VITALS: BP 111/73; PULSE 86; RESP 16; TEMP 36.7; O2SAT 100
--- NOTE | 2024-12-20 14:20 | PC.NURSE ---
Report to the Outpatient Waiting Room, entrance under the green pavilion located off [facility], at time ___1000am____ on date ____01/03/25___. Planned Procedure Time: __ 1200pm .? Time changes happen often and if your time is changed the preop area will call you the afternoon before. - You and your visitor will be asked to self-screen and do not enter if you have any COVID symptoms. Please call surgeon if you need to reschedule. - A mask is optional within the hospital at this time. Patients may have clear liquids (water, carbonated beverages, clear teas, apple juice) until 3 hours prior to surgery with a maximum of 20 ounces. - No food from midnight until time of surgery and no smoking, or chewing tobacco (or any form of nicotine). No chewing gum, candy or mints. (0900am) Take only the following medications with a SIP of water on the morning of surgery: __Levothyroxine, Carbidopa, Tylenol if needed DO NOT STOP ANY OF YOUR OTHER PRESCRIPTION MEDICATIONS PRIOR TO SURGERY EXCEPT THE FOLLOWING Hold all vitamins and supplements for 3 days per anesthesiologist. Date of last dose 12/30/24. Medications to discontinue per physician Meloxicam, Aleve, Excedrin, NSAIDS for [address] Silverio Date to take last dose___ 12/26/24 Please no make-up, nail yakut, hairspray, perfume, deodorant, or body powder the day of surgery.? No jewelry (including any body piercings) or valuables the day of surgery, leave them at home.? Please take a shower or bath the night before, or the morning of, surgery with an antibacterial soap.? HIBICLEANSE PREP as directed Wear comfortable, loose fitting clothing.? Overnight bag, cell phone truck safety inspector, Robe, tennis shoes - Jewelry must be removed prior to entering the operating room.? Rings and piercings that are not removed may be cut off. - The hospital will not accept responsibility for valuables.? - Please leave all valuables, including medications, at home the day of surgery. If you are going home after surgery, a licensed driver service technician must drive you home.? - NO public transportation without another adult if you receive anesthesia. - We recommend that an adult stay with you for 24 hours following discharge. - We also recommend that you do not drive, make important decision, drink alcoholic beverages, or take any drugs that were not prescribed by your health care provider for at least 24 hours after your discharge time. Follow any additional instructions given to you from your surgeon. Telephone instructions given to ___Patient and asked if any additional questions and then verbalized understanding. Patient advised to call surgeon office or pre surgery nurse liaison [phone] if any additional questions.
[2025-01-02 09:29] VITALS: BMI 27.3
[2025-01-03] VITALS (9 sets, daily range): BP systolic 126–166; BP diastolic 63–85; PULSE 74–91; RESP 12–18; TEMP 36.2–37.3; O2SAT 97–100; BMI 26.6
--- NOTE | ~2025-01-03 | XR_ITS ---
EXAMINATION: [id number] DATE: 01/03/2025 14:48 CDT INDICATION: Right knee arthroplasty TECHNIQUE: 2 views right knee FINDINGS: There is a right total knee arthroplasty in expected position. Subcutaneous gas with fluid and air in the joint are consistent with recent surgery. No evidence of periprosthetic fracture. IMPRESSION: 1. Recent right total knee arthroplasty. Reviewed, dictated and finalized at location A.
--- OUTSIDE RECORDS SUMMARY | 2025-01-03 00:48 | XMS_ITS | Clinical Summary ---
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 Gender Identity Not on file Sexual Orientation [...] AM CDT Pulse 87 06/22/2017 10:27 AM MILITARY SCIENCE INSTRUCTOR Temperature 36.5 C (97.7 F) 01/03/2017 8:28 AM CDT Respiratory Rate 18 01/03/2017 8:28 AM CDT Oxygen Saturation 96% 03/20/2017 9:34 AM CDT Inhaled Oxygen Concentration - - Weight 100.4 kg (221 lb 6.4 oz) 04/06/2020 9:14 AM CDT Height 170.2 cm (5' 7) 04/06/2020 9:14 AM CDT Body Mass Index [...] 07/16/2018, 03/20/2017 Medical Devices Implanted Type Area Senior J2Ee Developer Device Identifier Shelf Expiration Date Model / Serial / Lot Shell Ringlc+ Pc 54mm [id number] - [id number] Implanted:Qty: 1 on 10/14/2012 at [facility] Hip Left: Hip [employer] 09/30/2022 [id number] / / [id number] Liner Epoly Mrom 40mm Sz24 Ep-228607 - [id number] Implanted:Qty: 1 on 10/14/2012 at [facility] Hip Left: Hip [employer] 06/02/2015 EP-274993 / / [id number] Head Fem Biolox Option 40mm 650-1058 - [id number] Implanted:Qty: 1 on 10/14/2012 by Supa Godwin MD at [facility] Hip Left: Hip [employer] 01/30/2022 650-1058 / / [id number] Stem Fem Tprlc Red/Dis 51-140548 - [id number] Implanted:Qty: 1 on 10/14/2012 at [facility] Hip Left: Hip [employer] 08/02/2022 51-634587 / / [id number] Slv Biolox Delta Optn Type 1 650-2755 - [id number] Implanted:Qty: 1 on 10/14/2012 at [facility] Hip Left: Hip [employer] 04/02/2022 650-1064 / / [id number] Slv Biolox Delta Optn Type 1 650-106 - [id number] Implanted:Qty: 1 on 01/24/2014 at [facility] Hip Right: Hip [employer] 10/01/2023 650-1065 / / [id number] Shell Ringlc+ Pc 52mm 16-059195 - [id number] Implanted:Qty: 1 on 01/24/2014 at [facility] Hip Right: Hip [employer] 09/02/2023 16-028382 / / [id number] Stem Fem Tprlc R/D Sz9 51-777097 - [id number] Implanted:Qty: 1 on 01/24/2014 at [facility] Hip Right: Hip [employer] 09/30/2022 51-094351 / / [id number] Description:PROCESSED ON REQ UISITION,3803091. Liner Arcomxl Rnglc Sz23 Xl-695296 - [id number] Implanted:Qty: 1 on 04/15/2016 by Supa Godwin MD at [facility] Hip Right: Hip [employer] [id number] 02/08/2021 XL-333968 / / [id number] Description:Both Biomet revi rosa components are processed on requisition,0963878. Head Fem Biolox Option 36mm 650-1057 - [id number] Implanted:Qty: 1 on 04/15/2016 by Supa Godwin MD at [facility] Hip Right: Hip [employer] [id number] 02/07/2026 650-1057 / / [id number] Explanted Type Area Senior J2Ee Developer Device Identifier Shelf Expiration Date Model / Serial / Lot Liner Epoly Mrom 36mm Sz23 Ep-094856 - [id number] Implanted:Qty: 1 on 01/24/2014 at [facility] Explanted:Qty: 1 on 04/15/2016 by Supa Godwin MD at [facility] Hip Right: Hip [employer] 07/02/2018 EP-499729 / / [id number] Head Fem Biolox Option 36mm 650-1057 - [id number] Implanted:Qty: 1 on 01/24/2014 at [facility] Explanted:Qty: 1 on 04/15/2016 by Supa Godwin MD at [facility] Hip Right: Hip [employer] 01/01/2024 650-1225 / / [id number] Procedures Procedure Name Priority Date/Time Associated Diagnosis [...] Most Recently Relevant to Health Maintenance Insurance [employer] [facility] OPEN ACCESS Advance Directives For more information, please contact: [phone] Documents on File Type Date Recorded Patient Crm Technical Lead Expl anation Advance Directive POA 01/01/2017 11:50 [...] 2:43 PM 01/26/2014 4:28 PM Care Teams Linen Folder Relationship Specialty Start Date End Date Kd Abraham MD [address] [place] [phone] PCP - General Internal Medicine 04/06/20
--- OUTSIDE RECORDS SUMMARY | 2025-01-03 00:48 | XMS_ITS ---
Author Organization [facility] Address [address] [place] [address] Phone Care Team Providers Care Business Center Representative Name Role Phone Adam BRISCOE OD, Darrel Morton Unavailable [phone]- [phone] Shamir Redd MD Unavailable [phone] Leonarda Olivares DO Primary Care Provider [phone]- [phone] Active Problems Problem Noted Date Diagnosed Date [...] from 09/27/2018:Stage IA(pT1a, pN0(sn), cM0, G2, ER+, VT+, HER2-) - Signed by Kasi Lobato MD on 10/14/2018 Clinical: Unsigned Abnormal mammogram 08/24/2018 Parkinson disease 03/31/2018 Assessment & Plan (07/11/2024 12:38 PM CASHIER HOST/HOSTESS): She has stage 2, tremor-predominant PD with good response to levodopa but short duration of benefit with less wearing off recently. Wearing off is always much worse with stress or increased activity. Dyskinesia has been better since she retired and she did not tolerate amantadine in the past due to feeling hyped and foggy. She didn't think rasagiline was helpful and it also made her hyped. Baclofen has been helpful for her neck [...] baclofen. Possibly consider botulinin. - Continue [employer] boxing and regular exercise - Same trazodone. [...] future. Assessment & Plan (09/02/2022 3:01 PM CASHIER HOST/HOSTESS): She has stage 2, tremor-predominant PD with [...] PRN baclofen. Possibly consider botulinin. - Continue Nan[employer] boxing and regular exercise - May try [...] Same PRN baclofen. Possibly consider botulinin. -continue [employer] boxing and regular exercise -Start PD Voice [...] study Assessment & Plan (07/23/2021 3:48 PM CASHIER HOST/HOSTESS): She has stage 2 PD that tremor [...] her symptoms. If possible for her to network control technician part of the time, that would be [...] 4 hours. If possible for her to network control technician part of the time, that would be [...] her symptoms. If possible for her to network control technician part of the time, that would be [...] exercising. Assessment & Plan (06/20/2020 2:40 PM CASHIER HOST/HOSTESS): She has stage 2 PD that tremor [...] Boxing. Assessment & Plan (10/03/2019 10:55 AM CASHIER HOST/HOSTESS): She has very mild stage 2 PD [...] RSB. Assessment & Plan (09/06/2018 11:43 AM CASHIER HOST/HOSTESS): She has very mild stage 2 PD [...]
--- OUTSIDE RECORDS SUMMARY | 2025-01-03 00:48 | XMS_ITS | Continuity of Care Document ---
Author Organization [facility] Address [address] [place] [address] Phone Care Team Providers Care Hand Tennis Ball Coverer Name Role Phone Nascimento OD, Magdy Unavailable Unavailable Advance Directives Directive Yes / No Effective Date File Name No Information Encounters Encounter Description Practice Location Reason(s) For Visit Diagnoses Date Provider Providers Copied on Encounter [facility], [address], [place], [place], [id number], [place] tel:[phone] [facility] No Information 0 3-200 2 Nascimento OD Magdy. [address], [place], [address], [place]. tel:[phone] Family History Family Member Type Diagnosis Age At Onset No Information Payers Payer name Insurance type Covered republican ID Authoriza tion(s) No Information Social History [...]
--- OUTSIDE RECORDS SUMMARY | 2025-01-03 00:48 | XMS_ITS | Referral Summary ---
Author Organization [facility] Address [address] [place] [address] Phone Care Team Providers Care Gravure Press Operator Name Role Phone Adam BRISCOE, ATUL, Darrel Morton Unavailable [phone] Shamir Redd MD Unavailable [phone] Leonarda Olivares DO Primary Care Provider [phone] Allergies Active Allergy Reactions Criticality Noted Date [...] 03/31/2018 Assessment & Plan (07/11/2024 12:38 PM RIVER EXPEDITION GUIDE): She has stage 2, tremor-predominant PD with [...] stiffness but she takes it rarely since mcfp. She has fatigue but avoids caffeine due [...] symptoms and this did improve with semi- mcfp She tried escitalopram and noted nausea so [...] symptoms and this did improve with semi- mcfp She tried escitalopram and noted nausea so [...] she is hopeful this will improve with mcfp She tried escitalopram and noted nausea so [...] she is hopeful this will improve with mcfp She tried escitalopram and noted nausea so [...] baclofen. Possibly consider botulinin. - Continue Rock [employer] boxing and regular exercise - Same trazodone. - Could consider amantadine in the future. Assessment & Plan (09/02/2022 3:01 PM RIVER EXPEDITION GUIDE): She has stage 2, tremor-predominant PD with [...] Same PRN baclofen. Possibly consider botulinin. -continue [email or web address] boxing and regular exercise -Start PD Voice [...] study Assessment & Plan (07/23/2021 3:48 PM RIVER EXPEDITION GUIDE): She has stage 2 PD that tremor [...] her symptoms. If possible for her to skid worker part of the time, that would [...] 4 hours. If possible for her to skid worker part of the time, that would [...] her symptoms. If possible for her to skid worker part of the time, that would [...] exercising. Assessment & Plan (06/20/2020 2:40 PM RIVER EXPEDITION GUIDE): She has stage 2 PD that tremor [...] Boxing. Assessment & Plan (10/03/2019 10:55 AM RIVER EXPEDITION GUIDE): She has very mild stage 2 PD [...] RSB. Assessment & Plan (09/06/2018 11:43 AM RIVER EXPEDITION GUIDE): She has very mild stage 2 PD [...] CDT Gender Identity Female 07/23/2021 10:03 AM RIVER EXPEDITION GUIDE Sexual Orientation Straight 07/23/2021 10 :03 AM RIVER EXPEDITION GUIDE Last Filed Vital Signs Vital Sign Reading Time Taken Comments Blood Pressure 172/109 07/11/2024 11:07 AM RIVER EXPEDITION GUIDE Pulse 91 07/11/2024 11:07 AM RIVER EXPEDITION GUIDE Temperature 36.3 C (97.4 F) 01/02/2023 9:52 AM CDT Respiratory Rate 18 04/08/2022 3:34 PM CDT Oxygen Saturation 98% 04/08/2022 3:34 PM CDT Inhaled Oxygen Concentration - - Weight 78.7 kg (173 lb 9.6 oz) 08/31/2024 10:16 AM RIVER EXPEDITION GUIDE Height 170.2 cm (5' 7) 08/31/2024 10:16 AM RIVER EXPEDITION GUIDE Body Mass Index 27.19 08/31/2024 10:16 AM RIVER EXPEDITION GUIDE Plan of Treatment Not on file Medical Devices Implanted Type Area Weight Checker Device Identifier Shelf Expiration Date Model / Serial / Lot Shell Ringlc+ Pc Left: Hip [employer] Inc 09/30/2022 [id number] / / [id number] Description:Implanted Type A meghan Weight Checker Device Identifier Expiration Date Model / Serial / Lot Shell Ringlc+ Pc 54mm [id number] - [id number] Implanted: Qty: 1 on 10/14/2012 Hip Left: Hip [employer] INC 09/30/2022 [id number] / / [id number] Liner Epoly Mrom Left: Hip Description:Liner Epoly Mrom 40mm Sz24 [id number] - [id number] Implanted: Qty: 1 on 10/14/2012 Hip Left: Hip [employer] 06/02/2015 [id number] / Head Fem Biolox Left: Hip Description:Head Fem Biolox Option 40mm [id number] - [id number] Implanted: Qty: 1 on 10/14/2012 by Supa Godwin MD Hip Left: Hip [employer] 01/30/2022 [id number] / Stem Fem Tprlc Red/Dis Left: Hip Description:Stem Fem Tprlc R ed/Dis [id number] - [id number] Implanted: Qty: 1 on 10/14/2012 Hip Left: Hip [employer] 08/02/2022 [id number] / / Procedures Procedure Name Priority Date/Time Associated Diagnosis Comments SCREENING MAMMOGRAM BILATERAL W RENE Schedule Routine, Read Routine (OP Routine) 08/31/2024 10:46 AM RIVER EXPEDITION GUIDE Encounter for follow-up surveillance of breast cancer from Last 3 Months or Most Recently Relevant to Health Maintenance Results * Screening Mammogram Bilateral W Rene (08/31/2024 10:46 AM RIVER EXPEDITION GUIDE) Anatomical Region Laterality Modality Breast Bilateral Mammography Narrative 08/31/2024 4:41 PM RIVER EXPEDITION GUIDE Mammogram Technique: Bilateral Digital Breast Tomosynthesis, Bilateral C-view 2D Screening mammogram. Views obtained: bilateral craniocaudal and bilateral mediolateral oblique. Computer Aided Detection was performed. Mammogram Findings: The present examination has been compared to prior imaging studies performed at [facility] on 05/31/2021, 06/17/2022 and 07/14/2023. There [...] compared to prior imaging studies performed at [facility] on 05/31/2021, 06/17/2022 and 07/14/2023. There [...] Most Recently Relevant to Health Maintenance Insurance [facility] [id number] Care Teams Gravure Press Operator Relationship Specialty Start Date End Date Leonarda Olivares DO [address] [place] [address] PCP - General Family Medicine 10/29/22 Darrel Medina III, OD [address] [place] [address] Consulting Physician Optometry 10/29/22 Shamir Redd MD [address] [place] [address] Consulting Physician Neurology 10/29/22
--- OUTSIDE RECORDS SUMMARY | 2025-01-03 00:48 | XMS_ITS | Patient Health Record ---
Author Organization [facility] Address [address] [place], [place] [address] Care Team Providers Care Supply Coordinator Name Role Phone MUReaganLAURO Primary Care Provider Cuauhtemoc Blair Unavailable [phone] REASON FOR REFERRAL No Information MEDICATIONS Medication [...] Notes Problem Polyarthralgia (719.49) Active confirmed Polyarthralgia (12038142) Problem Myalgia (729.1) Active confirmed Myalgi a (38224423) Problem POLYARTHRITIS (716.59) Active confirmed Polyarthritis (901492831) Problem LOW BACK PAIN (724.2) Active confirmed Low back pain (881761626) Problem Psoriasis (696.1) Active confirmed Psor iasis (6881244) Problem Psoriatic Arthritis (696.0) Active confirmed Psoriatic arthritis (229338351) Problem MONITOR MED (V58.69) Active confirmed Long-term drug therapy (480083446) Problem SCREENING-PULMONA RY TB (V74.1) Active confirmed Tuberculosis screening (969948936) Problem Psoriatic arthritis (L40.50) Active confirmed 13147915 Problem Other leather stripping machine operator (current) drug therapy (Z79.899) Active confirmed 297332730 Problem 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 clerk 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 use of non-steroidal anti-inflammatori es (NSAID) (Z79.1) Active confirmed 879851925 Problem Pain in joints of both feet (M79.671) Active confirmed Pain in limb (35980081) Problem Never smoked cigarettes (Z78.9) Active confirmed 703172629 Problem Cervicalgia (M54.2) Active confirmed Cervicalgia (93802927) Problem Tremors of nervous system (R25.1) Active confirmed 23504717 Problem Parkinsons disease (G20) Active confirmed 06923324 PLAN OF TREATMENT Pending Test Test Name [...] Insured Coverage Start Date Coverage End Date [employer] OPEN ACCESS [address] [place] [address] [id number] Anastasiya Bertrand Self - patient is the [...]
--- OUTSIDE RECORDS SUMMARY | 2025-01-03 00:48 | XMS_ITS | Clinical Summary ---
Author Organization [facility] Address [address] [place] [address] Phone Care Team Providers Care Project Safety Manager Name Role Phone Adam BRISCOE, ATUL, Darrel Morton Unavailable [phone] Shamir Redd MD Unavailable [phone] Leonarda Olivares DO Primary Care Provider [phone] Allergies Active Allergy Reactions Criticality Noted Date [...] 03/31/2018 Assessment & Plan (07/11/2024 12:38 PM TAP OUT OPERATOR): She has stage 2, tremor-predominant PD [...] stiffness but she takes it rarely since fpc. She has fatigue but avoids caffeine due [...] symptoms and this did improve with semi- fpc She tried escitalopram and noted nausea so [...] symptoms and this did improve with semi- fpc She tried escitalopram and noted nausea so [...] she is hopeful this will improve with fpc She tried escitalopram and noted nausea so [...] she is hopeful this will improve with fpc She tried escitalopram and noted nausea so [...] baclofen. Possibly consider botulinin. - Continue Rock [employer] boxing and regular exercise - Same trazodone. - Could consider amantadine in the future. Assessment & Plan (09/02/2022 3:01 PM TAP OUT OPERATOR): She has stage 2, tremor-predominant PD [...] Same PRN baclofen. Possibly consider botulinin. -continue [employer] boxing and regular exercise -Start PD Voice [...] study Assessment & Plan (07/23/2021 3:48 PM TAP OUT OPERATOR): She has stage 2 PD that [...] her symptoms. If possible for her to local area network systems adminstrator part of the time, that would be [...] 4 hours. If possible for her to local area network systems adminstrator part of the time, that would be [...] her symptoms. If possible for her to local area network systems adminstrator part of the time, that would be [...] exercising. Assessment & Plan (06/20/2020 2:40 PM TAP OUT OPERATOR): She has stage 2 PD that [...] Boxing. Assessment & Plan (10/03/2019 10:55 AM TAP OUT OPERATOR): She has very mild stage 2 [...] RSB. Assessment & Plan (09/06/2018 11:43 AM TAP OUT OPERATOR): She has very mild stage 2 [...] HIP ARTHROPLASTY 10/14/[address] Godwin at [facility] HEMORRHOID SURGERY 08/03/2012 - 08/02/2013 REVISION TOTAL HIP ARTHROPLASTY 04/15/2016 failed poly liner with hip subluxation of the right hip. COLONOSCOPY 07/23/2015 TOTAL HIP ARTHROPLASTY 01/24/[address] Godwin at [facility] BREAST BIOPSY 08/03/2016 - 08/02/2017 Left benign BREAST BIOPSY 09/02/2018 Right FOOT SURGERY 01/31/2018 - 03/02/2018 Right for degenerative changes Medical History Medical History Date Comments Hypertension Depression Psoriasis Parkinson's disease (HCC) [facility] Psychophysiological insomnia Breast cancer [...] CDT Gender Identity Female 07/23/2021 10:03 AM TAP OUT OPERATOR Sexual Orientation Straight 07/23/2021 10 :03 AM TAP OUT OPERATOR Obstetrics History Para Term AB IAB SAB [...] Comments Blood Pressure 172/109 07/11/2024 11:07 AM TAP OUT OPERATOR Pulse 91 07/11/2024 11:07 AM TAP OUT OPERATOR Temperature 36.3 C (97.4 F) 01/02/2023 9:52 AM CDT Respiratory Rate 18 04/08/2022 3:34 PM CDT Oxygen Saturation 98% 04/08/2022 3:34 PM CDT Inhaled Oxygen Concentration - - Weight 78.7 kg (173 lb 9.6 oz) 08/31/2024 10:16 AM TAP OUT OPERATOR Height 170.2 cm (5' 7) 08/31/2024 10:16 AM TAP OUT OPERATOR Body Mass Index 27.19 08/31/2024 10:16 AM TAP OUT OPERATOR Plan of Treatment Health Maintenance Due Date [...] 10/22/2018, 07/16/2018 Medical Devices Implanted Type Area Puttier Device Identifier Shelf Expiration Date Model / Serial / Lot Shell Ringlc+ Pc Left: Hip [employer] Inc 09/30/2022 [id number] / / [id number] Description:Implanted Type A meghan Puttier Device Identifier Expiration Date Model / Serial / Lot Shell Ringlc+ Pc 54mm [id number] - [id number] Implanted: Qty: 1 on 10/14/2012 Hip Left: Hip [employer] 09/30/2022 [id number] / / [id number] Liner Epoly Mrom Left: Hip Description:Liner Epoly Mrom 40mm Sz24 [id number] - [id number] Implanted: Qty: 1 on 10/14/2012 Hip Left: Hip [employer] 06/02/2015 [id number] / Head Fem Biolox Left: Hip Description:Head Fem Biolox Option 40mm 650-1058 - [id number] Implanted: Qty: 1 on 10/14/2012 by Supa Godwin MD Hip Left: Hip [employer] 01/30/2022 [id number] / Stem Fem Tprlc Red/Dis Left: Hip Description:Stem Fem Tprlc R ed/Dis [id number] - [id number] Implanted: Qty: 1 on 10/14/2012 Hip Left: Hip [employer] 08/02/2022 [id number] / / Procedures Procedure Name Priority Date/Time Associated Diagnosis Comments SCREENING MAMMOGRAM BILATERAL W JEZ Schedule Routine, Read Routine (OP Routine) 08/31/2024 10:46 AM TAP OUT OPERATOR Encounter for follow-up surveillance of breast cancer from Last 3 Months or Most Recently Relevant to Health Maintenance Results * Screening Mammogram Bilateral W Jez (08/31/2024 10:46 AM TAP OUT OPERATOR) Anatomical Region Laterality Modality Breast Bilateral Mammography Narrative 08/31/2024 4:41 PM TAP OUT OPERATOR Mammogram Technique: Bilateral Digital Breast Tomosynthesis, Bilateral C-view 2D Screening mammogram. Views obtained: bilateral craniocaudal and bilateral mediolateral oblique. Computer Aided Detection was performed. Mammogram Findings: The present examination has been compared to prior imaging studies performed at [facility] on 05/31/2021, 06/17/2022 and 07/14/2023. There [...] compared to prior imaging studies performed at [facility] on 05/31/2021, 06/17/2022 and 07/14/2023. There [...] Most Recently Relevant to Health Maintenance Insurance [facility] [id number] [facility] [id number] Member Subscriber Plan / Payer (Ef fective 2021-Present) Name:ElzaJarad Member ID:[id number] Relation to Subscriber:Self Name:Jarad Bertrand Subscriber ID:[id number] Payer ID:[id number] Type:[employer] HMO/PPO Address: [address] [place] [id number] Care Teams Project Safety Manager Relationship Specialty Start Date End Date Leonarda Olivares DO [address] [place] [address] PCP - General Family Medicine 10/29/22 Darrel Medina III, OD [address] [place] [address] Consulting Physician Optometry 10/29/22 Shamir Redd MD [address] [place] [address] Consulting Physician Neurology 10/29/22
[2025-01-03] MEDS: TRANEXAMIC ACID 1,000MG/ISO100 1,000 MG/100 ML BAG 200 MG IVPB (10:59)
[2025-01-03] MEDS: ACETAMINOPHEN 500 MG TABLET 1000 MG PO (10:59)
--- NOTE | 2025-01-03 11:17 | WPDHPUPDATE1 ---
History and Physical Update Update Date/Time: 01/03/25 11:17 History and Physical has been reviewed, including an updated exam of the patient. There are NO changes in the patient's condition. Risks, benefits, and alternatives have been discussed and questions answered. Patient agrees to proceed with procedure.
--- NOTE | 2025-01-03 11:49 | P.PNAN_ITS ---
Anes - Initial Pre Proc Eval Procedure: Operation Date: 01/03/25 12:00 Proposed Procedures p Right Total Knee Arthroplasty - Italo Silverio MD Date/Time: 01/03/25 11:49 Surgeon: Italo Silverio MD Pre Op Diagnosis: Rt Knee DJD Patient Data Age: 64 Gender: F Height: 1.68 m Weight: 75 kg Last Vital Signs Temp 36.3 C L 01/03/25 10:56 Pulse 89 01/03/25 10:56 Resp 16 12/20/24 14:17 BP 140/85 01/03/25 10:56 Pulse Ox 99 01/03/25 10:56 O2 Del Method Room Air 01/03/25 10:56 Allergies Allergy/AdvReac Type Severity Reaction Status Date / Time adhesive Allergy Mild RASH Verified 01/03/25 10:55 Home Medications ?Medication ?Instructions ?Recorded ?Confirmed ?Type trazodone 100 mg tablet 100 mg PO HS 08/23/19 01/02/25 History carbidopa 25 mg-levodopa 100 mg 2.5 tablet PO .Every 3 Hours 09/02/21 01/03/25 History tablet dikijoqajzhu-ybgerapz-muvensl-folic 1 tablet PO DAILY 03/20/23 01/02/25 History acid 400 mcg-vit K1 20 mcg tablet (One-A-Day Women's 50 Plus) meloxicam 15 mg tablet 15 mg PO DAILY 05/02/24 01/02/25 History levothyroxine 100 mcg tablet 100 mcg PO .QOD #45 tabs 08/09/24 01/02/25 Rx levothyroxine 88 mcg tablet See Rx Instructions .Route 08/29/24 01/03/25 Rx .COMPLEX #90 tabs pravastatin 40 mg tablet See Rx Instructions .Route 08/29/24 01/03/25 Rx .COMPLEX #90 tabs carbidopa ER 50 mg-levodopa 200 mg 1 tablet PO .HS 11/07/24 01/02/25 History tablet,extended release cholecalciferol (vitamin D3) 50 2,000 unit PO DAILY 11/08/24 01/02/25 History mcg (2,000 unit) tablet lisinopril 40 mg tablet 40 mg PO DAILY #90 tabs 11/28/24 01/03/25 Rx gabapentin 100 mg capsule 100 mg PO QHS 12/20/24 01/02/25 History chlorhexidine gluconate 4 % 1 applic topical DAILY #237 mL 12/27/24 01/03/25 Rx topical liquid (Hibiclens) baclofen 10 mg tablet 10 mg PO Q12H PRN cramping 01/02/25 01/02/25 History Patient hx anesthesia problems: none Family hx anesthesia problems: none Results Review: All pre-operative results and documents have been reviewed as part of the pre- operative evaluation. [facility] Past Medical History Medical History Degenerative joint disease of knee Other fatigue Arthritis of left knee Cubital tunnel syndrome Carpal tunnel syndrome, left upper limb Vitamin D deficiency Dystonia Numbness of left hand Acute suppur left otitis media w/o spontan rupture tympanic membrane Lateral epicondylitis, right elbow Right knee injury Right knee gives way Left knee pain Breast CA [facility] use of drug De Quervain's disease (radial styloid tenosynovitis) Cervical dystonia Parkinsons Intertrigo Acquired hypothyroidism Body mass index (bmi) 34.0-34.9, adult (03/10/18) Dysthymia Essential hypertension Hallux rigidus, right foot Hyperlipidemia LDL goal <130 Psychophysiological insomnia Surgical History Surgical History History of carpal tunnel surgery of left wrist with cubital tunnel release 05/11/2024 History of lumpectomy of right breast R breast cancer 2019 History of foot surgery R foot hallux rigidus 2018 History of epicondylectomy R elbow 1993 History of repair of right hip joint 2016 R Hip Repair broken piece H/O left breast biopsy History of right hip replacement H/O hemorrhoidectomy History of left hip replacement History of lumbar laminectomy H/O nasal septoplasty H/O arthroscopic knee surgery History of partial hysterectomy H/O tubal ligation Family History Family History Mother Patient's mother is in good health Father Family history of congestive heart failure Other Family history of heart disease in male family member before age 55 Hypertension Social History Social History Smoking status: Never smoker Second hand tobacco smoke exposure: No Alcohol intake: never Substance use: never Do You Feel Safe in your Home?: Yes Lack of Transportation: No Lack of Food: Never True Current Housing: I Have Housing Concerned About Future Housing: No Difficulty Paying Gas/Electric Bills: No Difficulty Paying for Meds: No Currently Unemployed: No Education: High School Diploma/GED Difficulty w/ Childcare or Family Care: No Living arrangements: with family Additional living arrangements comments: Spiritual care concerns: No Anes - Eval Final PreProcedure Day of Procedure 01/03/25 11:49 Patient weight: overweight Heart: regular rate and rhythm Lungs: clear to auscultation Airway: Mallampati scale class II Neurological: alert and oriented Last oral intake: >/= 8 hours ASA classification: III Emergent: no Anesthetic plan: proceed Anesthesia type and monitoring: general LMA and standard monitoring Results Review: All pre-operative results and documents have been reviewed as part of the pre- operative evaluation. Informed Consent: The patient's anesthetic plan and its attendant risks and benefits were discussed with the patient/family/POA. Questions were solicited and answers provided to the satisfaction of the patient/family/POA.
[2025-01-03] MEDS: LACTATED RINGERS 1,000 ML 30 ML IV CONT ×2 (11:59→14:30)
[2025-01-03] MEDS: ceFAZolin 2 GM/D5W 50 ML 2 GM/50 ML BAG IVPB ×2 (12:19→20:49)
[2025-01-03] MEDS: SODIUM CHLORIDE 0.9% IV 37.7 ML, MORPHINE SULFATE INJ (*CRX) 2 MG, ROPivacaine HCL 1% 2... INFILTRATE (12:42)
[2025-01-03] MEDS: TRANEXAMIC ACID 1,000 MG/10 ML AMPUL 1000 MG IV PUSH (13:46)
--- NOTE | 2025-01-03 14:27 | P.OP_ITS ---
Procedure Note - Detailed Date of Procedure 01/03/25 Pre-op Diagnosis Rt Knee DJD Post-op Diagnosis Same Procedure Performed RIGHT TKA Surgeon Italo Silverio MD Anesthesia General Description of Procedure THE RIGHT KNEE WAS PREPPED AND DRAPED IN THE STERILE FASHION. THERE WAS A 10 DEGREE FLEXION CONTRACTURE. A MIDLINE SKIN INCISION WAS MADE. A MEDIAL PARAPATELLAR ARTHROTOMY WAS MADE. THE PATELLA WAS EVERTED. AN INTRAMEDULLARY TAYLOR WAS PLACED IN THE FEMUR. A DISTAL FEMORAL CUT WAS MADE IN 5 DEGREES OF V ALGUS REMOVING APPROXIMATELY 9 MM OF BONE FROM THE DISTAL FEMUR. THE FEMUR WAS SIZED TO A 3. A 3 FEMORAL CUTTING BLOCK WAS PLACED IN 3 DEGREES OF EXTERNAL ROTATION AND IN ALIGNMENT WITH SANTOSH'S LINE AND THE TRANSEPICONDYLAR AXIS. ANTERIOR POSTERIOR AND CHAMFER CUTS WERE MADE. THE CUTS WERE EXCELLENT. NEXT AN INTRAMEDULLARY CUTTING GUIDE WAS PLACED IN THE TIBIA. A TRANS TIBIAL CUT WAS MADE ALONG THE LONG AXIS OF THE TIBIA. APPROXIMATELY 8 MM OF BONE WAS REMOVED FROM THE HIGH SIDE OF THE TIBIA. THE TIBIA WAS THEN PLANED TO A SMOOTH SURFACE. POSTERIOR FEMORAL OSTEOPHYTES WERE REMOVED FROM THE FEMORAL CONDYLES. A 3 TIBIAL TRIAL WAS PLACED IN ALIGNMENT WITH THE 1/3 MEDIAL ASPECT OF THE TIBIAL TUBERCLE. A POSTERIOR STABILIZED CUTTING BLOCK WAS PLACED AND A BOX CUT WAS MADE. THEN A 3 PS FEMORAL TRIAL COMPONENT WAS PLACED. BOTH HAD EXCELLENT FITS. EVENTUALLY A 9 PS POLYETHYLENE TRIAL COMPONENT WAS PLACED. THE KNEE WAS TAKEN THROUGH A RANGE OF MOTION. THE KNEE CAME OUT TO FULL EXTENSION. THERE WAS NO ABNORMAL TILT TO THE PATELLA. THERE WAS GOOD A/P AND VARUS/VALGUS STABILITY. THERE WAS NO EXCESSIVE ROLL BACK WITH FLEXION. THE TRIAL COMPONENTS WERE REMOVED. THEN A 3 PS FEMORAL COMPONENT AND 3 TIBIAL COMPONENT WITH A 9 PS POLYETHYLENE COMPONENT WERE PRESS FIT INTO PLACE. THE KNEE WAS TAKEN THROUGH A ROM AGAIN AND FOUND TO BE STABLE WITH NO PATELLA TILT NO EXCESSIVE ROLL BACK WITH FLEXION AND GOOD STABILITY WITH COMPLETE AND FULL EXTENSION. THE KNEE WAS IRRIGATED WITH STERILE BETADINE AND WATER FOR ABOUT 3 MINUTES. THE BLEEDERS WERE CAUTERIZED. THE ARTHROTOMY WAS REPAIRED WITH NUMBER 1 VICRYL. THE SUB CUTANEOUS LAYER WITH 2-0 VICRYL AND THE SKIN WITH 3-0 STRATAFIX AND DERMABOND. THE WOUND WAS WASHED AND A STERILE DRESSING WAS APPLIED. PATIENT WAS EXTUBATED. Estimated Blood Loss -150.0 Pathology None sent Complications No immediate complications Condition Stable Disposition PACU
[2025-01-03] MEDS: fentaNYL CITRATE INJ (*CRX) 100 MCG/2 ML VIAL 25 MCG IV PUSH ×2 (14:56→15:05)
[2025-01-03] MEDS: PRAVASTATIN SODIUM 20 MG TABLET 40 MG BY MOUTH (16:36)
[2025-01-03] MEDS: oxyCODONE/ACETAMINOPHEN (*CRX) 5-325 MG TABLET 1 TABLET PO ×2 (16:36→20:40)
[2025-01-03] MEDS: SENNA/DOCUSATE SODIUM TABLET 2 TAB PO (16:37)
[2025-01-03] MEDS: CARBIDOPA/LEVODOPA 12.5/50 MG TABLET 1 TABLET PO ×2 (17:10→20:41)
[2025-01-03] MEDS: CARBIDOPA/LEVODOPA 25/100 MG TABLET 2 TABLET PO ×2 (17:12→20:39)
[2025-01-03] MEDS: KETOROLAC 15 MG/ML VIAL (*BKC) IV PUSH ×2 (17:12→23:00)
[2025-01-03] MEDS: traZODone HCL 50 MG TABLET 100 MG PO (20:39)
[2025-01-03] MEDS: CARBIDOPA/LEVODOPA 25/100 MG CR TABLET 2 TABLET PO (20:40)
[2025-01-03] MEDS: ASPIRIN 325 MG ENTERIC TABLET PO (20:40)
[2025-01-03] MEDS: FAMOTIDINE 20 MG TABLET PO (20:40)
[2025-01-03] MEDS: GABAPENTIN 100 MG CAPSULE PO (20:41)
[2025-01-04 01:12] VITALS: BP 105/65; PULSE 85; RESP 14; TEMP 36.3; O2SAT 99
[2025-01-04] MEDS: CARBIDOPA/LEVODOPA 25/100 MG TABLET 2 TABLET PO ×4 (04:00→11:34)
[2025-01-04] MEDS: CARBIDOPA/LEVODOPA 12.5/50 MG TABLET 1 TABLET PO ×4 (04:00→11:34)
[2025-01-04] MEDS: ceFAZolin 2 GM/D5W 50 ML 2 GM/50 ML BAG IVPB ×2 (04:00→11:33)
[2025-01-04 05:12] VITALS: BP 133/65; PULSE 83; RESP 16; TEMP 36.3; O2SAT 99
[2025-01-04 06:29] LABS: Basophils Percent Auto 0.3 % (0.2-1.2); Eosinophils Percent Auto 0.2 % (0-4.4); Hematocrit 35.6 % (37.0-47.0); Hemoglobin 11.4 g/dL (12.0-15.0); Immature Granulocyte Absolute 0.06 K/mm3 (0.00-0.031); Immature Granulocyte Percent A 0.4 % (0-0.5); Lymphocytes Absolute Auto 1.22 K/mm3 (0.9-3.2); Mean Corpuscular Hemoglobin 28.3 pg (26-34); Mean Corpuscular Volume 88.3 fl (80-100); Mean Platelet Volume 9.4 fl (7.4-10.4); Monocytes Absolute Auto 1.4 K/mm3 (0.1-0.6); Monocytes Percent Auto 10.7 % (2.6-8.5); Neutrophils Absolute Auto 10.7 K/mm3 (1.3-6.7); Neutrophils Percent Auto 79.4 % (45.5-73.1); Platelet Count Result 322 k/mm3 (150-375); Red Blood Count 4.03 M/mm3 (4.2-5.4); Red Cell Distribution Width 13.6 % (11.5-14.5); White Blood Count 13.5 K/mm3 (4.5-10.0)
[2025-01-04] MEDS: KETOROLAC 15 MG/ML VIAL (*BKC) IV PUSH ×2 (06:30→11:34)
[2025-01-04] MEDS: LEVOTHYROXINE SODIUM 100 MCG TABLET PO (06:30)
[2025-01-04 06:48] LABS: Anion Gap 5 mmol/L (4-12); Blood Urea Nitrogen 12 mg/dL (7-17); Calcium 8.8 mg/dL (8.4-10.2); Carbon Dioxide 27 mmol/L (22-30); Chloride 103 mmol/L (98-107); Estimated CRCL calculation 85 ml/min; Estimated Glomerular Filt Rate > 60; Glucose 107 mg/dL (65-110); Potassium 3.8 mmol/L (3.4-5.0); Sodium 135 mmol/L (137-145)
[2025-01-04] MEDS: diazePAM (*CRX) 5 MG TABLET PO (07:55)
[2025-01-04] MEDS: oxyCODONE/ACETAMINOPHEN (*CRX) 10-325 MG TABLET 1 TAB PO (07:55)
[2025-01-04 09:12] VITALS: BP 105/65; PULSE 90; RESP 14; TEMP 36.8; O2SAT 100
[2025-01-04] MEDS: polyethylene glycoL 3350 17 GM POWD.PACK PO (10:03)
[2025-01-04] MEDS: SENNA/DOCUSATE SODIUM TABLET 2 TAB PO (10:04)
[2025-01-04] MEDS: CHOLECALCIFEROL (VITAMIN D3) 25 MCG (1,000 UNITS) TABLET 50 MCG PO (10:04)
[2025-01-04] MEDS: FAMOTIDINE 20 MG TABLET PO (10:04)
[2025-01-04] MEDS: PRAVASTATIN SODIUM 20 MG TABLET 40 MG BY MOUTH (10:04)
[2025-01-04] MEDS: ASPIRIN 325 MG ENTERIC TABLET PO (10:05)
[2025-01-04] MEDS: lisinopriL 20 MG TABLET 40 MG PO (10:05)
--- NOTE | 2025-01-04 10:47 | PM.PNORT ---
Progress Note: A&P Assessment and Plan (1) Hx of total knee replacement: Code(s): Z96.659 - Presence of unspecified artificial knee joint Status: Acute Assessment and Plan: POD 1 DOING WELL. OK TO DC HOME AFTER AFTERNOON PT. SHE WILL F/U IN 3 WEEKS. Subjective Subjective Date/Time Seen: 01/04/25 10:47 Interval history: POD 1 DOING WELL. GOOD PROGRESS WITH PT. 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 NEG HOMANS SIGN CALF AND THIGH SOFT NON TENDER Objective Data Vital Signs Vital Signs: Vital Signs - 24 hr 01/03/25 10:56 01/03/25 14:30 01/03/25 14:45 Temperature 36.3 C L 37.3 C Pulse Rate 89 74 83 Respiratory Rate 14 12 Blood Pressure 140/85 126/65 146/63 H Pulse Oximetry 99 100 100 Oxygen Delivery Room Air Simple Face Mask Simple Face Mask Oxygen Flow Rate 8 8 01/03/25 15:00 01/03/25 15:15 01/03/25 16:12 Temperature 36.2 C L Pulse Rate 78 82 88 Respiratory Rate 13 13 18 Blood Pressure 142/70 H 139/70 155/66 H Pulse Oximetry 100 97 98 Oxygen Delivery Simple Face Mask Room Air Oxygen Flow Rate 8 01/03/25 18:01 01/03/25 18:02 01/03/25 18:36 Temperature 36.3 C L 36.2 C L Pulse Rate 88 88 Respiratory Rate 18 18 Blood Pressure 154/75 H 154/67 H Pulse Oximetry 98 98 Oxygen Delivery Room Air Oxygen Flow Rate 01/03/25 20:00 01/03/25 21:12 01/04/25 01:12 Temperature 36.3 C L 36.3 C L Pulse Rate 91 85 Respiratory Rate 16 14 Blood Pressure 166/75 H 105/65 Pulse Oximetry 100 99 Oxygen Delivery Room Air Oxygen Flow Rate 01/04/25 05:12 01/04/25 07:49 01/04/25 08:00 Temperature 36.3 C L Pulse Rate 83 Respiratory Rate 16 Blood Pressure 133/65 Pulse Oximetry 99 Oxygen Delivery Room Air Room Air Oxygen Flow Rate 01/04/25 09:12 Temperature 36.8 C Pulse Rate 90 Respiratory Rate 14 Blood Pressure 105/65 Pulse Oximetry 100 Oxygen Delivery Oxygen Flow Rate Intake/Output Intake/Output: Intake & Output 01/01/25 01/02/25 01/03/25 01/04/25 23:59 23:59 23:59 23:59 Intake Total 600 990 Balance 600 990 Meds/Results Medications: Active Medications Generic Name Dose Route Start Last Admin Trade Name Freq PRN Reason Stop Dose Admin Acetaminophen 500 mg 01/03/25 15:27 Acetaminophen 500 Mg Tablet PO Q6H PRN Pain Rated 1-3 Artificial Tears 1 drop 01/03/25 20:15 Artificial Tears Ophth Soln 15 Ml Bottle EACH EYE QID PRN Dry Eye(s) Aspirin 325 mg 01/03/25 21:00 01/04/25 10:05 Aspirin 325 Mg Enteric Tablet PO 325 mg Q12HR SIMNOE Administration Carbidopa/Levodopa 2 tablet 01/03/25 18:00 01/04/25 10:04 Carbidopa/Levodopa 25/100 Mg Tablet PO 2 tablet Q3HR SIMONE Administration Carbidopa/Levodopa 2 tablet 01/03/25 21:00 01/03/25 20:40 Carbidopa/Levodopa 25/100 Mg Cr Tablet PO 2 tablet HS SIMONE Administration Carbidopa/Levodopa 1 tablet 01/03/25 18:00 01/04/25 10:04 Carbidopa/Levodopa 12.5/50 Mg Tablet PO 1 tablet Q3HR SIMONE Administration Diazepam 5 mg 01/03/25 15:27 01/04/25 07:55 Diazepam (*Crx) 5 Mg Tablet PO 5 mg Q8H PRN Administration Spasms Diphenhydramine HCl 25 mg 01/03/25 15:27 Diphenhydramine Hcl Inj 50 Mg/Ml Vial IV PUSH Q6H PRN Itching Famotidine 20 mg 01/03/25 21:00 01/04/25 10:04 Famotidine 20 Mg Tablet PO 20 mg Q12HR SIMONE Administration Gabapentin 100 mg 01/03/25 21:00 01/03/25 20:41 Gabapentin 100 Mg Capsule PO 100 mg QHS SIMONE Administration Hydromorphone HCl 1 mg 01/03/25 15:36 Hydromorphone Hcl Inj (*Crx) 2 Mg/Ml Vial IV PUSH Q2H PRN Breakthrough Pain Rated 7-10 or NPO Hydromorphone HCl 0.5 mg 01/03/25 15:37 Hydromorphone Hcl Inj (*Crx) 2 Mg/Ml Vial IV PUSH Q2H PRN Breakthrough Pain Rated 4-6 or NPO Cefazolin Sodium 2 gm in 50 mls @ 100 mls/hr 01/03/25 20:00 01/04/25 04:30 Ancef 2 Gm/D5w 50 Ml IVPB 01/04/25 12:29 Infused Q8H SIMONE Infusion Ibuprofen 800 mg in 200 mls @ 400 mls/hr 01/05/25 00:00 Caldolor 800 Mg/200 Ml IVPB Q6H PRN Breakthrough Pain Rated 1-3 or NPO Ketorolac Tromethamine 15 mg 01/03/25 18:00 01/04/25 06:30 Ketorolac 15 Mg/Ml Vial (*Bkc) IV PUSH 01/04/25 18:01 15 mg Q6HR SIMONE Administration Levothyroxine Sodium 88 mcg 01/05/25 06:30 Levothyroxine Sodium 88 Mcg Tablet BY MOUTH Q48H SIMONE Levothyroxine Sodium 100 mcg 01/04/25 06:30 01/04/25 06:30 Levothyroxine Sodium 100 Mcg Tablet PO 100 mcg Q48H SIMONE Administration Lisinopril 40 mg 01/04/25 09:00 01/04/25 10:05 Lisinopril 20 Mg Tablet PO 40 mg DAILY SIMONE Administration Naloxone HCl 0.1 mg 01/03/25 15:27 Naloxone Hcl 0.4 Mg/Ml Vial IV PUSH Q2M PRN Opiate Reversal Ondansetron HCl 4 mg 01/03/25 15:27 Ondansetron Inj 4 Mg/2 Ml Vial IV PUSH Q4H PRN Nausea And Vomiting Oxycodone/Acetaminophen 1 tablet 01/03/25 15:27 01/03/25 20:40 Oxycodone/Acetaminophen (*Crx) 5-325 Mg Tablet PO 1 tablet Q4H PRN Administration Pain Rated 4-6 Oxycodone/Acetaminophen 1 tab 01/03/25 15:27 01/04/25 07:55 Oxycodone/Acetaminophen (*Crx) 10-325 Mg Tablet PO 1 tab Q6H PRN Administration Pain Rated 7-10 Polyethylene Glycol 17 gm 01/04/25 09:00 01/04/25 10:03 Polyethylene Glycol 3350 17 Gm Powd.Pack PO 17 gm QAM SIMONE Administration Pravastatin Sodium 40 mg 01/03/25 15:27 01/04/25 10:04 Pravastatin Sodium 20 Mg Tablet BY MOUTH 40 mg DAILY SIMONE Administration Senna/Docusate Sodium 2 tab 01/03/25 17:00 01/04/25 10:04 Senna/Docusate Sodium Tablet PO 2 tab BID SIMONE Administration Trazodone HCl 100 mg 01/03/25 21:00 01/03/25 20:39 Trazodone Hcl 50 Mg Tablet PO 100 mg HS SIMONE Administration Vitamin D 50 mcg 01/04/25 09:00 01/04/25 10:04 Cholecalciferol (Vitamin D3) 25 Mcg (1,000 Units) Tablet PO 50 mcg DAILY SIMONE Administration Radiology Results: ITS Impressions Knee X-Ray 01/03/25 14:48 IMPRESSION: 1. Recent right total knee arthroplasty. Labs Labs: Laboratory Results - last 24 hr 01/04/25 05:41 WBC 13.5 H RBC 4.03 L Hgb 11.4 L Hct 35.6 L MCV 88.3 MCH 28.3 MCHC 32.0 RDW 13.6 Plt Count 322 MPV 9.4 Immature Gran % (Auto) 0.4 Neut % (Auto) 79.4 H Lymph % (Auto) 9.0 L Chaves % (Auto) 10.7 H Eos % (Auto) 0.2 Baso % (Auto) 0.3 Lymph # (Auto) 1.22 Chaves # (Auto) 1.4 H Eos # (Auto) 0.0 Baso # (Auto) 0.0 Abs Immat Gran (auto) 0.06 H Absolute Neuts (auto) 10.7 H Absolute Nucleated RBC 0.000 Nucleated RBC % 0.0 Sodium 135 L Potassium 3.8 Chloride 103 Carbon Dioxide 27 Anion Gap 5 BUN 12 D Creatinine 0.54 L Estim Creat Clear Calc 85 Estimated GFR > 60 Glucose 107 Calcium 8.8
--- NOTE | 2025-01-04 13:03 | PCPTNOTE ---
Attempted to see patient for PT, however patient was eating lunch.
[2025-01-04 13:12] VITALS: BP 96/53; PULSE 81; RESP 14; TEMP 36.3; O2SAT 99
== END 2025-01-04 14:31 | disposition home or self-care (01) ==
LOC: ANHSURGERY 09:51 → ANH3MEDSUR 15:28
PROVIDERS: PCP Family Medicine; Visit Provider Orthopaedic Surgery
PROC: (CPT 27447; principal; 2025-01-03 12:00)
DX: M17.11 Unilateral primary osteoarthritis, right knee (principal); M25.761 Osteophyte, right knee; E03.9 Hypothyroidism, unspecified; I10 Essential (primary) hypertension; E78.5 Hyperlipidemia, unspecified; E55.9 Vitamin D deficiency, unspecified; G20.A1 Parkinson's disease without dyskinesia, without mention of fluctuations; M65.4 Radial styloid tenosynovitis [de Quervain]; F51.04 Psychophysiologic insomnia; G56.02 Carpal tunnel syndrome, left upper limb; Z79.899 Other long term (current) drug therapy; Z98.890 Other specified postprocedural states; Z98.1 Arthrodesis status; Z98.51 Tubal ligation status; Z85.3 Personal history of malignant neoplasm of breast; Z82.49 Family history of ischemic heart disease and other diseases of the circulatory system
CPT/HCPCS: 27447; 36415; 73560; 80048; 85025; 97110; 97161; 97165; 97530; A9270; C1713; C1776; J0171; J0690; J1100; J1885; J2250; J2270; J2704; J2795; J3010; J7120

== ENCOUNTER 2025-05-05 13:19 | Outpatient (CLI) | payer OTHER, SELFPAY ==
--- NOTE | ~2025-05-05 | DEXA_ITS ---
Bone Density Report Name: JARAD LAZAR Age: 64 Sex: Female Ethnicity: White Date of : 1960 Indication: postmenopausal; screening for osteoporosis; height loss; cancer; hysterectomy; Referring Provider: Leonarda Olivares Study: Bone densitometry was performed. Exam Date: May 05, 2025 Accession number: [id number] Bone Density: Region BMD T-score Z-score Classification AP Spine(L2, L3, L4) 1.300 2.0 3.7 Normal World Health Organization criteria for BMD impression classify patients as: Normal (T-score at or above -1.0), Osteopenia (T-score between -1.0 and -2.5), or Osteoporosis (T-score at or below -2.5). Clinical Information Provided by Patient: Has used the following medications: Vitamin D, Calcium Has the following medical conditions: Cancer, Hysterectomy, parkinson's, breast cancer Patient maximum height was 67.25 Menopause Age: 34 Drinks caffeinated beverages Onset of menses at age 14 Number of children 2 Impression: The patient has normal bone mass. Discussion: LOW RISK OF FRACTURE; BONE DENSITY IS WELL ABOVE THE MINIMUM DESIRABLE LEVEL AND ABOVE AVERAGE FOR AGE AND SEX AT ALL SKELETAL SITES TESTED. This person's bone density is above expected limits for age and sex. This is rarely clinically significant, but should be pursued if there are significant musculoskeletal complaints. The patient should follow a healthful lifestyle (good nutrition with adequate calcium and vitamin D, and appropriate weight-bearing exercise). Follow-Up: Consider repeating this study in 5 years or sooner if there is some new clinical indication. Reported by: LAURA on 05/05/2025 1:47:00 PM. Reviewed, dictated and finalized at location A.
== END 2025-05-05 13:20 | disposition home or self-care (01) ==
LOC: MICIMG 13:20
PROVIDERS: PCP Family Medicine; Visit Provider Family Medicine
DX: M85.88 Other specified disorders of bone density and structure, other site (principal); Z13.820 Encounter for screening for osteoporosis
CPT/HCPCS: 77080

== ENCOUNTER 2025-05-26 08:08 | Outpatient (CLI) | payer OTHER, SELFPAY ==
--- OUTSIDE RECORDS SUMMARY | 2025-05-26 08:12 | XMS_ITS | Encounter Summary ---
Author Organization [facility] Address [facility] [place] [address] Care Team Providers Care External Relations Manager Name Role Phone Mario Albarado MD Primary Care Provider [phone] Kd Abraham MD Primary Care Provider [phone] Encounter Details Date Type Department Care Team (Late st Contact Info) Description 12/31/2012 Abstract [facility] CONVERSION [address] [place] [address] , Generic Conversion, Social History Tobacco Use [...] on filedocumented in this encounter Care Teams External Relations Manager Relationship Specialty Start Date End Date Mario Albarado MD PCP - General 06/24/11 01/05/20 Kd Abraham MD [address] [place] [address] PCP - General INTERNAL MEDICINE 01/06/20 documented as of this encounter
--- OUTSIDE RECORDS SUMMARY | 2025-05-26 08:12 | XMS_ITS | Clinical Summary ---
Author Organization [facility] Address [address] [place] [address] Care Team Providers Care Dry Cleaning Teacher Name Role Phone Kd Abraham MD Primary Care Provider [phone] Allergies Active Allergy Reactions Criticality Noted Date [...] other means 02/21/2015 Psoriatic arthritis 02/08/2015 Overview (01/09/2020): Diagnosed August 2014 By [...] 12:19 PM CDT Height 170.2 cm (5' 7) 03/06/2020 12:19 PM CDT Body Mass Index 35.24 03/06/2020 12:19 PM CDT Plan of Treatment Health Maintenance Due Date Last Done Comments Colorectal Cancer Screening Colonoscopy (10 Years) 1960 Annual Physical 1965 Hepatitis C 1980 Mammogram Screening 2002 Zoster Vaccines (1 of 2) 2012 Pneumococcal Vaccine: 50+ Years (3 of 3 - PCV20 or PCV21) 06/15/2020 06/15/2015, 02/08/2015 COVID-19 Vaccine (1 - 2024- season) 2025 Influenza Adult (#1) 2025 05/14/2017, 12/10/2014, 05/03/2013, Additional history exists DTaP, Tdap and Td Vaccines (2 - Td or Tdap) 03/20/2027 03/20/2017 RSV Immunization or 60+ Years (1 - 1-dose 75+ series) 2037 Hepatitis A Vaccines Aged Out No long er eligible based on patient's age to complete this topic Meningococcal B Vaccine Aged Out No l onger eligible based on patient's age to complete this topic Meningococcal Vaccine Aged Out No shaunna pierce eligible based on patient's age to complete this topic RSV Immunizations Under 20 Months Aged Out No longer eligible based on patient's age to complete this topic Insurance [employer] [facility] Care Teams Dry Cleaning Teacher Relationship Specialty Start Date End Date Kd Abraham MD [address] [place] [address] PCP - General INTERNAL MEDICINE 01/06/20
[2025-05-26 13:03] LABS: Hematocrit 45.6 % (37.0-47.0); Hemoglobin 14.2 g/dL (12.0-15.0); Mean Corpuscular HGB Conc 31.1 g/dl (32-36); Mean Corpuscular Hemoglobin 28.3 pg (26-34); Mean Corpuscular Volume 91.0 fl (80-100); Platelet Count Result 399 k/mm3 (150-375); Red Blood Count 5.01 M/mm3 (4.2-5.4); White Blood Count 5.5 K/mm3 (4.5-10.0)
[2025-05-26 13:18] LABS: Alanine Aminotransferase 6 U/L (6-35); Albumin Level 4.4 g/dL (3.5-5.1); Alkaline Phosphatase 122 U/L (38-126); Anion Gap 10 mmol/L (4-12); Aspartate Amino Transferase 49 U/L (14-36); Bilirubin,Total 1.0 mg/dL (0.2-1.3); Blood Urea Nitrogen 17 mg/dL (7-17); Calcium 9.2 mg/dL (8.4-10.2); Carbon Dioxide 29 mmol/L (22-30); Chloride 101 mmol/L (98-107); Cholesterol 174 mg/dL (0-200); Estimated Glomerular Filt Rate > 60; Glucose 75 mg/dL (65-110); HDL Direct 68 mg/dL; Potassium 3.9 mmol/L (3.4-5.0); Sodium 140 mmol/L (137-145); Total Protein 7.1 g/dL (6.3-8.2); Triglycerides 65 mg/dL (<150)
[2025-05-26 13:24] LABS: Free T4 Free Thyroxine 1.38 ng/dL (0.78-2.19)
[2025-05-26 13:50] LABS: Thyroid Stimulating Hormone 0.739 uIU/mL (0.465-4.680)
== END 2025-05-26 08:09 | disposition home or self-care (01) ==
LOC: ANHGOSHLAB 08:08
PROVIDERS: PCP Family Medicine; Visit Provider Family Medicine
DX: E03.9 Hypothyroidism, unspecified (principal); E55.9 Vitamin D deficiency, unspecified; E66.3 Overweight; E78.5 Hyperlipidemia, unspecified; I10 Essential (primary) hypertension; Z79.899 Other long term (current) drug therapy
CPT/HCPCS: 36415; 80053; 80061; 84439; 84443; 85027